=== PATIENT | male | born 1960 | race Caucasian/White ===

== ENCOUNTER 2019-08-30 12:08 | Outpatient (CLI) | payer BC, SELFPAY ==
[2019-08-30 13:04] LABS: Add Urine Microscopic? YES; Appearance Urine Clear (Clear); Basophils Absolute Auto 0.04 K/mm3 (0.00-0.10); Basophils Percent Auto 0.5 % (0.0-1.0); Bilirubin Urine Negative (Negative); Blood Urine Negative (Negative); Color Urine Yellow (Yellow); Eosinophils Absolute Auto 0.07 K/mm3 (0.02-0.50); Eosinophils Percent Auto 0.8 % (1.0-6.0); Glucose Urine UA 1+ (Negative); Hemoglobin 14.9 g/dL (14.0-18.0); Immature Granulocyte Absolute 0.04 K/mm3 (0.00-0.00); Immature Granulocyte Percent A 0.5 % (0.0-0.0); Ketones Urine Negative (Negative); Leukocyte Esterase Ur Negative LEU/UL (Negative); Lymphocytes Absolute Auto 1.46 K/mm3 (1.10-4.50); Lymphocytes Percent Auto 17.1 % (18.0-42.0); Mean Corpuscular HGB Conc 32.4 g/dL (32.0-36.0); Mean Corpuscular Volume 95.6 fL (78.0-102.0); Mean Platelet Volume 9.8 fl (8.7-11.0); Monocytes Absolute Auto 0.84 K/mm3 (0.10-0.90); Monocytes Percent Auto 9.8 % (2.0-11.0); Neutrophils Absolute Auto 6.1 K/mm3 (1.7-7.2); Neutrophils Percent Auto 71.3 % (50.0-70.0); Nitrate Urine Negative (Negative); Platelet Count Result 281 K/mm3 (150-420); Protein Urine Trace (Negative); Red Blood Count 4.81 M/mm3 (4.70-6.10); Red Cell Distribution Width 12.8 % (11.6-14.4); Urobilinogen Urine 0.2 mg/dL (0.2-1.0); White Blood Count 8.6 K/mm3 (4.8-10.8)
[2019-08-30 13:10] LABS: Creatinine Urine 112.98 mg/dL (40-278)
[2019-08-30 13:11] LABS: Hemoglobin A1C 6.4 % (<5.7); MALB Creatinine Ratio 82.4 mg/g (0-30); Microalbumin Urine Random 93.2 mg/L
[2019-08-30 13:15] LABS: RBC Urine 0-2 /hpf (0-2)
[2019-08-30 13:16] LABS: Bacteria Urine None seen /hpf; Mucus Urine Few /lpf; Transitional Epi Cells Urine Few /hpf; WBC Urine 0-3 /hpf (0-3)
[2019-08-30 13:21] LABS: Alanine Aminotransferase 20 U/L (16-63); Albumin Level 3.4 g/dL (3.4-5.0); Alkaline Phosphatase 154 U/L (46-116); Anion Gap 15.3 mmol/L (7-16); Aspartate Amino Transferase 11 U/L (15-37); Bilirubin,Total 0.5 mg/dL (0.00-1.00); Blood Urea Nitrogen 32 mg/dL (7-18); Calcium 8.7 mg/dL (8.5-10.1); Carbon Dioxide 20 mmol/L (21-32); Chloride 108 mmol/L (98-108); Cholesterol 136 mg/dL (0-200); Creatine Kinase 68 U/L (39-308); Estimated Glomerular Filt Rate 28; Glucose 103 mg/dL (70-99); HDL Direct 51 mg/dL (40-60); LDL Cholesterol Calculated 73 mg/dL (<130); Osmolality Calculated 294 mOsm/kg (285-295); Phosphorus 4.1 mg/dL (2.6-4.7); Potassium 4.3 mmol/L (3.5-5.1); Sodium 139 mmol/L (136-145); Total Protein 6.7 g/dL (6.4-8.2); Triglycerides 58 mg/dL (0-150)
[2019-09-01 13:36] LABS: Free T3 1.74 pg/mL (2.18-3.98); Free T4 Free Thyroxine 1.24 ng/dL (0.76-1.46)
[2019-09-02 19:08] LABS: Vitamin D 25 Hydroxy 27 ng/mL (30-100)
[2019-09-03 14:18] LABS: Parathyroid Intact 125 pg/mL (14-64)
== END 2019-08-30 12:09 | disposition home or self-care (01) ==
LOC: CHSLAB 12:12
PROVIDERS: PCP Internal Medicine; Visit Provider Nurse Practitioner
DX: R19.7 Diarrhea, unspecified (principal); I12.9 Hypertensive chronic kidney disease with stage 1 through stage 4 chronic kidney disease, or unspecified chronic kidney disease; N18.3 Chronic kidney disease, stage 3 (moderate); E03.9 Hypothyroidism, unspecified; E78.5 Hyperlipidemia, unspecified; E11.65 Type 2 diabetes mellitus with hyperglycemia
CPT/HCPCS: 36415; 80053; 80061; 81001; 82043; 82306; 82550; 83036; 83970; 84100; 84439; 84443; 84481; 85025; 87045; 87046; 87177; 87209; 87324; 87427

== ENCOUNTER 2019-09-25 09:43 | Outpatient (CLI) | payer BC, SELFPAY ==
[2019-09-25 10:34] LABS: Alanine Aminotransferase 53 U/L (16-63); Albumin Level 3.4 g/dL (3.4-5.0); Alkaline Phosphatase 226 U/L (46-116); Anion Gap 17.1 mmol/L (7-16); Aspartate Amino Transferase 45 U/L (15-37); Bilirubin,Total 0.3 mg/dL (0.00-1.00); Blood Urea Nitrogen 34 mg/dL (7-18); Calcium 8.6 mg/dL (8.5-10.1); Carbon Dioxide 19 mmol/L (21-32); Chloride 108 mmol/L (98-108); Estimated Glomerular Filt Rate 20; Glucose 143 mg/dL (70-99); Osmolality Calculated 297 mOsm/kg (285-295); Potassium 5.1 mmol/L (3.5-5.1); Sodium 139 mmol/L (136-145); Total Protein 6.7 g/dL (6.4-8.2)
[2019-09-30 12:36] LABS: Gliadin AB, IgG 4 Units (<20); Reticulin IgA Negative (Negative); TTG IGA AB 1 U/mL (<4)
[2019-09-30 22:18] LABS: ANCA Screen Negative (Negative); Myeloperoxidase Ab <1.0 AI (<1.0); Proteinase-3 Ab <1.0 AI (<1.0); S cerevisiae Ab (IgG) 18.1 U (<=20.0)
== END 2019-09-25 09:44 | disposition home or self-care (01) ==
LOC: CHSLAB 09:44
PROVIDERS: PCP Internal Medicine; Visit Provider Internal Medicine
DX: R19.7 Diarrhea, unspecified (principal)
CPT/HCPCS: 36415; 80053; 83516; 86021; 86255; 86671

== ENCOUNTER 2019-10-21 11:39 | Outpatient (CLI) | payer BC, SELFPAY ==
[2019-10-21 13:15] LABS: Albumin Level 3.1 g/dL (3.4-5.0); Anion Gap 10.5 mmol/L (7-16); Blood Urea Nitrogen 29 mg/dL (7-18); Calcium 8.1 mg/dL (8.5-10.1); Carbon Dioxide 23 mmol/L (21-32); Chloride 106 mmol/L (98-108); Estimated Glomerular Filt Rate 41; Glucose 232 mg/dL (70-99); Osmolality Calculated 292 mOsm/kg (285-295); Phosphorus 3.6 mg/dL (2.6-4.7); Potassium 4.5 mmol/L (3.5-5.1); Sodium 135 mmol/L (136-145)
== END 2019-10-21 11:40 | disposition home or self-care (01) ==
PROVIDERS: PCP Internal Medicine
DX: I12.9 Hypertensive chronic kidney disease with stage 1 through stage 4 chronic kidney disease, or unspecified chronic kidney disease (principal)
CPT/HCPCS: 36415; 80069

== ENCOUNTER 2019-11-14 12:33 | Outpatient (CLI) | payer BC, SELFPAY ==
[2019-11-14 12:59] LABS: Creatinine Urine 36.54 mg/dL (40-278); Total Protein Urine Random 34.5 mg/dL (0.0-11.9)
[2019-11-14 13:19] LABS: Albumin Level 3.4 g/dL (3.4-5.0); Anion Gap 8 mmol/L (8-16); Blood Urea Nitrogen 41 mg/dL (7-18); Calcium 8.8 mg/dL (8.5-10.1); Carbon Dioxide 27 mmol/L (21-32); Chloride 104 mmol/L (98-108); Estimated Glomerular Filt Rate 42; Glucose 193 mg/dL (70-99); Osmolality Calculated 303 mOsm/kg (285-295); Phosphorus 3.4 mg/dL (2.6-4.7); Potassium 4.6 mmol/L (3.5-5.1); Sodium 139 mmol/L (136-145)
== END 2019-11-14 12:34 | disposition home or self-care (01) ==
LOC: CHSLAB 12:37
PROVIDERS: PCP Internal Medicine
DX: E10.21 Type 1 diabetes mellitus with diabetic nephropathy (principal); I12.9 Hypertensive chronic kidney disease with stage 1 through stage 4 chronic kidney disease, or unspecified chronic kidney disease
CPT/HCPCS: 36415; 80069; 82570; 84156

== ENCOUNTER 2019-12-06 12:44 | Outpatient (CLI) | payer BC, SELFPAY ==
[2019-12-08 11:50] LABS: SARS-CoV-2 RNA PCR Negative
== END 2019-12-06 12:45 | disposition home or self-care (01) ==
LOC: CHSLAB 12:45
PROVIDERS: PCP Internal Medicine; Visit Provider Internal Medicine
DX: Z20.828 Contact with and (suspected) exposure to other viral communicable diseases (principal); Z01.818 Encounter for other preprocedural examination
CPT/HCPCS: 87635; C9803; U0003

== ENCOUNTER 2020-01-06 13:43 | Outpatient (CLI) | payer BC, SELFPAY | END 2020-01-06 13:44 | disposition home or self-care (01) | PROVIDERS: PCP Internal Medicine | DX: H66.90 Otitis media, unspecified, unspecified ear (principal) | CPT/HCPCS: 87040 ==

== ENCOUNTER 2020-02-23 11:37 | Outpatient (CLI) | payer BC, SELFPAY ==
[2020-02-23 12:03] LABS: Basophils Absolute Auto 0.06 K/mm3 (0.00-0.10); Basophils Percent Auto 0.9 % (0.0-1.0); Eosinophils Absolute Auto 0.29 K/mm3 (0.02-0.50); Eosinophils Percent Auto 4.5 % (1.0-6.0); Hematocrit 36.1 % (40.0-54.0); Hemoglobin 11.5 g/dL (14.0-18.0); Immature Granulocyte Absolute 0.03 K/mm3 (0.00-0.00); Immature Granulocyte Percent A 0.5 % (0.0-0.0); Lymphocytes Absolute Auto 2.14 K/mm3 (1.10-4.50); Lymphocytes Percent Auto 33.1 % (18.0-42.0); Mean Corpuscular HGB Conc 31.9 g/dL (32.0-36.0); Mean Corpuscular Hemoglobin 30.6 pg (27.0-31.0); Mean Platelet Volume 9.8 fl (8.7-11.0); Monocytes Absolute Auto 0.84 K/mm3 (0.10-0.90); Neutrophils Absolute Auto 3.1 K/mm3 (1.7-7.2); Platelet Count Result 315 K/mm3 (150-420); Red Blood Count 3.76 M/mm3 (4.70-6.10); Red Cell Distribution Width 13.6 % (11.6-14.4); White Blood Count 6.5 K/mm3 (4.8-10.8)
[2020-02-23 12:35] LABS: MALB Creatinine Ratio 523.1 mg/g (0-30); Microalbumin Urine Random 339.5 mg/L
[2020-02-23 12:59] LABS: Alanine Aminotransferase 40 U/L (16-63); Alkaline Phosphatase 190 U/L (46-116); Anion Gap 9 mmol/L (8-16); Aspartate Amino Transferase 32 U/L (15-37); Bilirubin,Total 0.4 mg/dL (0.00-1.00); Blood Urea Nitrogen 40 mg/dL (7-18); CRP 0.5 mg/dL (0.0-0.9); Calcium 8.8 mg/dL (8.5-10.1); Carbon Dioxide 24 mmol/L (21-32); Chloride 107 mmol/L (98-108); Estimated Glomerular Filt Rate 31; Glucose 191 mg/dL (70-99); Osmolality Calculated 304 mOsm/kg (285-295); Phosphorus 4.6 mg/dL (2.6-4.7); Potassium 5.4 mmol/L (3.5-5.1); Sodium 140 mmol/L (136-145); Total Protein 6.5 g/dL (6.4-8.2)
[2020-02-23 13:54] LABS: Erythrocyte Sedimentation Rate 20 mm/hr (0-20)
[2020-02-26 13:33] LABS: Parathyroid Intact 123 pg/mL (14-64)
[2020-02-27 07:43] LABS: Reference Lab Test Name VORICONAZOLE
== END 2020-02-23 11:38 | disposition home or self-care (01) ==
PROVIDERS: PCP Internal Medicine
DX: N18.4 Chronic kidney disease, stage 4 (severe) (principal); N25.81 Secondary hyperparathyroidism of renal origin; E10.21 Type 1 diabetes mellitus with diabetic nephropathy
CPT/HCPCS: 36415; 80053; 80299; 82043; 83970; 84100; 85025; 85652; 86140

== ENCOUNTER 2020-03-01 11:30 | Outpatient (RCR) | payer BC, SELFPAY ==
[2020-01-19 12:01] LABS: Basophils Absolute Auto 0.04 K/mm3 (0.00-0.10); Basophils Percent Auto 0.6 % (0.0-1.0); Eosinophils Absolute Auto 0.42 K/mm3 (0.02-0.50); Eosinophils Percent Auto 6.7 % (1.0-6.0); Hematocrit 26.6 % (40.0-54.0); Hemoglobin 8.1 g/dL (14.0-18.0); Immature Granulocyte Absolute 0.07 K/mm3 (0.00-0.00); Immature Granulocyte Percent A 1.1 % (0.0-0.0); Lymphocytes Absolute Auto 1.22 K/mm3 (1.10-4.50); Lymphocytes Percent Auto 19.6 % (18.0-42.0); Mean Corpuscular HGB Conc 30.5 g/dL (32.0-36.0); Mean Corpuscular Volume 98.5 fL (78.0-102.0); Mean Platelet Volume 9.4 fl (8.7-11.0); Monocytes Absolute Auto 0.84 K/mm3 (0.10-0.90); Monocytes Percent Auto 13.5 % (2.0-11.0); Neutrophils Absolute Auto 3.6 K/mm3 (1.7-7.2); Neutrophils Percent Auto 58.5 % (50.0-70.0); Platelet Count Result 351 K/mm3 (150-420); Red Cell Distribution Width 13.2 % (11.6-14.4); White Blood Count 6.2 K/mm3 (4.8-10.8)
[2020-01-19 13:21] LABS: Alanine Aminotransferase 37 U/L (16-63); Albumin Level 2.5 g/dL (3.4-5.0); Alkaline Phosphatase 178 U/L (46-116); Anion Gap 12 mmol/L (8-16); Aspartate Amino Transferase 38 U/L (15-37); Bilirubin,Total 0.3 mg/dL (0.00-1.00); Blood Urea Nitrogen 23 mg/dL (7-18); Calcium 7.8 mg/dL (8.5-10.1); Carbon Dioxide 22 mmol/L (21-32); Chloride 112 mmol/L (98-108); Estimated Glomerular Filt Rate 40; Glucose 101 mg/dL (70-99); Osmolality Calculated 305 mOsm/kg (285-295); Potassium 4.1 mmol/L (3.5-5.1); Sodium 146 mmol/L (136-145); Total Protein 5.9 g/dL (6.4-8.2)
[2020-01-19 13:29] LABS: Erythrocyte Sedimentation Rate 35 mm/hr (0-20)
[2020-01-26 11:19] LABS: Basophils Absolute Auto 0.05 K/mm3 (0.00-0.10); Basophils Percent Auto 0.9 % (0.0-1.0); Eosinophils Absolute Auto 0.53 K/mm3 (0.02-0.50); Eosinophils Percent Auto 9.8 % (1.0-6.0); Hemoglobin 8.3 g/dL (14.0-18.0); Immature Granulocyte Absolute 0.04 K/mm3 (0.00-0.00); Immature Granulocyte Percent A 0.7 % (0.0-0.0); Lymphocytes Absolute Auto 1.19 K/mm3 (1.10-4.50); Mean Corpuscular HGB Conc 30.7 g/dL (32.0-36.0); Mean Corpuscular Hemoglobin 30.4 pg (27.0-31.0); Mean Corpuscular Volume 98.9 fL (78.0-102.0); Neutrophils Absolute Auto 2.9 K/mm3 (1.7-7.2); Neutrophils Percent Auto 53.6 % (50.0-70.0); Platelet Count Result 367 K/mm3 (150-420); Red Blood Count 2.73 M/mm3 (4.70-6.10); Red Cell Distribution Width 13.2 % (11.6-14.4); White Blood Count 5.4 K/mm3 (4.8-10.8)
[2020-01-26 11:42] LABS: Alanine Aminotransferase 63 U/L (16-63); Albumin Level 2.5 g/dL (3.4-5.0); Alkaline Phosphatase 189 U/L (46-116); Anion Gap 11 mmol/L (8-16); Aspartate Amino Transferase 47 U/L (15-37); Bilirubin,Total 0.3 mg/dL (0.00-1.00); Blood Urea Nitrogen 20 mg/dL (7-18); Calcium 8.1 mg/dL (8.5-10.1); Carbon Dioxide 25 mmol/L (21-32); Chloride 109 mmol/L (98-108); Estimated Glomerular Filt Rate 39; Glucose 206 mg/dL (70-99); Osmolality Calculated 308 mOsm/kg (285-295); Potassium 4.7 mmol/L (3.5-5.1); Sodium 145 mmol/L (136-145); Total Protein 5.8 g/dL (6.4-8.2)
[2020-01-26 12:22] LABS: Erythrocyte Sedimentation Rate 31 mm/hr (0-20)
[2020-02-02 11:07] LABS: Basophils Absolute Auto 0.07 K/mm3 (0.00-0.10); Basophils Percent Auto 1.2 % (0.0-1.0); Eosinophils Absolute Auto 0.68 K/mm3 (0.02-0.50); Eosinophils Percent Auto 11.5 % (1.0-6.0); Hematocrit 32.9 % (40.0-54.0); Hemoglobin 10.1 g/dL (14.0-18.0); Immature Granulocyte Absolute 0.04 K/mm3 (0.00-0.00); Immature Granulocyte Percent A 0.7 % (0.0-0.0); Lymphocytes Absolute Auto 1.68 K/mm3 (1.10-4.50); Lymphocytes Percent Auto 28.3 % (18.0-42.0); Mean Corpuscular HGB Conc 30.7 g/dL (32.0-36.0); Mean Corpuscular Hemoglobin 30.1 pg (27.0-31.0); Mean Corpuscular Volume 97.9 fL (78.0-102.0); Mean Platelet Volume 9.7 fl (8.7-11.0); Monocytes Absolute Auto 0.86 K/mm3 (0.10-0.90); Monocytes Percent Auto 14.5 % (2.0-11.0); Neutrophils Absolute Auto 2.6 K/mm3 (1.7-7.2); Neutrophils Percent Auto 43.8 % (50.0-70.0); Platelet Count Result 350 K/mm3 (150-420); Red Blood Count 3.36 M/mm3 (4.70-6.10); Red Cell Distribution Width 13.1 % (11.6-14.4); White Blood Count 5.9 K/mm3 (4.8-10.8)
[2020-02-02 12:00] LABS: Alanine Aminotransferase 41 U/L (16-63); Albumin Level 2.8 g/dL (3.4-5.0); Alkaline Phosphatase 204 U/L (46-116); Anion Gap 7 mmol/L (8-16); Aspartate Amino Transferase 40 U/L (15-37); Bilirubin,Total 0.4 mg/dL (0.00-1.00); Blood Urea Nitrogen 32 mg/dL (7-18); CRP 2.2 mg/dL (0.0-0.9); Calcium 8.7 mg/dL (8.5-10.1); Carbon Dioxide 28 mmol/L (21-32); Chloride 107 mmol/L (98-108); Estimated Glomerular Filt Rate 33; Glucose 197 mg/dL (70-99); Osmolality Calculated 305 mOsm/kg (285-295); Potassium 4.9 mmol/L (3.5-5.1); Sodium 142 mmol/L (136-145); Total Protein 6.5 g/dL (6.4-8.2)
[2020-02-02 14:06] LABS: Erythrocyte Sedimentation Rate 36 mm/hr (0-20)
[2020-02-06 07:38] LABS: Reference Lab Test Name VORICONAZOLE
[2020-02-06 10:38] LABS: Anion Gap 10 mmol/L (8-16); Blood Urea Nitrogen 34 mg/dL (7-18); Calcium 8.7 mg/dL (8.5-10.1); Carbon Dioxide 26 mmol/L (21-32); Chloride 105 mmol/L (98-108); Estimated Glomerular Filt Rate 33; Glucose 204 mg/dL (70-99); Osmolality Calculated 305 mOsm/kg (285-295); Potassium 4.8 mmol/L (3.5-5.1); Sodium 141 mmol/L (136-145)
[2020-02-09 11:50] LABS: Basophils Absolute Auto 0.06 K/mm3 (0.00-0.10); Basophils Percent Auto 1.1 % (0.0-1.0); Eosinophils Absolute Auto 0.52 K/mm3 (0.02-0.50); Hematocrit 34.4 % (40.0-54.0); Hemoglobin 10.7 g/dL (14.0-18.0); Immature Granulocyte Absolute 0.05 K/mm3 (0.00-0.00); Lymphocytes Absolute Auto 1.46 K/mm3 (1.10-4.50); Mean Corpuscular HGB Conc 31.1 g/dL (32.0-36.0); Mean Corpuscular Hemoglobin 30.3 pg (27.0-31.0); Mean Corpuscular Volume 97.5 fL (78.0-102.0); Mean Platelet Volume 9.7 fl (8.7-11.0); Monocytes Absolute Auto 0.75 K/mm3 (0.10-0.90); Monocytes Percent Auto 14.4 % (2.0-11.0); Neutrophils Absolute Auto 2.4 K/mm3 (1.7-7.2); Neutrophils Percent Auto 45.5 % (50.0-70.0); Platelet Count Result 335 K/mm3 (150-420); Red Blood Count 3.53 M/mm3 (4.70-6.10); Red Cell Distribution Width 13.1 % (11.6-14.4); White Blood Count 5.2 K/mm3 (4.8-10.8)
[2020-02-09 12:34] LABS: Alanine Aminotransferase 33 U/L (16-63); Albumin Level 2.8 g/dL (3.4-5.0); Alkaline Phosphatase 201 U/L (46-116); Anion Gap 8 mmol/L (8-16); Aspartate Amino Transferase 30 U/L (15-37); Bilirubin,Total 0.4 mg/dL (0.00-1.00); Blood Urea Nitrogen 23 mg/dL (7-18); CRP 2.1 mg/dL (0.0-0.9); Calcium 8.9 mg/dL (8.5-10.1); Carbon Dioxide 27 mmol/L (21-32); Chloride 107 mmol/L (98-108); Estimated Glomerular Filt Rate 37; Glucose 198 mg/dL (70-99); Osmolality Calculated 303 mOsm/kg (285-295); Potassium 5.1 mmol/L (3.5-5.1); Sodium 142 mmol/L (136-145); Total Protein 6.6 g/dL (6.4-8.2)
[2020-02-09 12:49] LABS: Erythrocyte Sedimentation Rate 30 mm/hr (0-20)
[2020-02-14 12:31] LABS: Reference Lab Test Name VORICONAZOLE
[2020-02-20 12:25] LABS: Reference Lab Test Name VORICONAZOLE
[2020-03-01 11:38] LABS: Basophils Absolute Auto 0.06 K/mm3 (0.00-0.10); Basophils Percent Auto 1.1 % (0.0-1.0); Eosinophils Absolute Auto 0.24 K/mm3 (0.02-0.50); Eosinophils Percent Auto 4.3 % (1.0-6.0); Hematocrit 37.4 % (40.0-54.0); Hemoglobin 12.2 g/dL (14.0-18.0); Immature Granulocyte Absolute 0.03 K/mm3 (0.00-0.00); Immature Granulocyte Percent A 0.5 % (0.0-0.0); Lymphocytes Absolute Auto 2.21 K/mm3 (1.10-4.50); Mean Corpuscular HGB Conc 32.6 g/dL (32.0-36.0); Mean Corpuscular Volume 94.9 fL (78.0-102.0); Mean Platelet Volume 9.7 fl (8.7-11.0); Monocytes Absolute Auto 0.75 K/mm3 (0.10-0.90); Monocytes Percent Auto 13.6 % (2.0-11.0); Neutrophils Absolute Auto 2.2 K/mm3 (1.7-7.2); Neutrophils Percent Auto 40.5 % (50.0-70.0); Platelet Count Result 286 K/mm3 (150-420); Red Blood Count 3.94 M/mm3 (4.70-6.10); Red Cell Distribution Width 14.5 % (11.6-14.4); White Blood Count 5.5 K/mm3 (4.8-10.8)
[2020-03-01 12:08] LABS: Alanine Aminotransferase 43 U/L (16-63); Alkaline Phosphatase 261 U/L (46-116); Anion Gap 9 mmol/L (8-16); Aspartate Amino Transferase 43 U/L (15-37); Bilirubin,Total 0.4 mg/dL (0.00-1.00); Blood Urea Nitrogen 41 mg/dL (7-18); CRP 1.4 mg/dL (0.0-0.9); Calcium 8.9 mg/dL (8.5-10.1); Carbon Dioxide 25 mmol/L (21-32); Chloride 109 mmol/L (98-108); Estimated Glomerular Filt Rate 29; Glucose 161 mg/dL (70-99); Osmolality Calculated 309 mOsm/kg (285-295); Potassium 4.6 mmol/L (3.5-5.1); Sodium 143 mmol/L (136-145); Total Protein 6.5 g/dL (6.4-8.2)
[2020-03-01 12:47] LABS: Erythrocyte Sedimentation Rate 14 mm/hr (0-20)
== END 2020-04-18 23:59 | disposition home or self-care (01) ==
LOC: CHSLAB 11:30
PROVIDERS: PCP Internal Medicine
DX: M27.2 Inflammatory conditions of jaws (principal)
CPT/HCPCS: 36415; 80048; 80053; 80299; 85025; 85652; 86140

== ENCOUNTER 2020-03-04 09:45 | Outpatient (CLI) | payer BC, SELFPAY ==
[2020-03-04 11:20] LABS: Anion Gap 7 mmol/L (8-16); Blood Urea Nitrogen 27 mg/dL (7-18); Calcium 8.9 mg/dL (8.5-10.1); Carbon Dioxide 24 mmol/L (21-32); Chloride 109 mmol/L (98-108); Estimated Glomerular Filt Rate 28; Glucose 130 mg/dL (70-99); Osmolality Calculated 297 mOsm/kg (285-295); Potassium 4.4 mmol/L (3.5-5.1); Sodium 140 mmol/L (136-145)
== END 2020-03-04 09:46 | disposition home or self-care (01) ==
LOC: CHSLAB 09:47
PROVIDERS: PCP Internal Medicine; Visit Provider Internal Medicine
DX: I10 Essential (primary) hypertension (principal)
CPT/HCPCS: 36415; 80048

== ENCOUNTER 2020-03-05 11:02 | Outpatient (CLI) | payer BC, SELFPAY ==
--- NOTE | 2020-03-05 12:01 | PC.NURSE ---
1115 #18 power pick to ll ac removed. 41 cm at tip. tip is intact. site looks clean. pressure applied at site. tega derm applied and instructed to leave in place for at least the next hour. s/s to report of post pic line..
== END 2020-03-05 11:03 | disposition home or self-care (01) ==
LOC: CHSTREATRM 11:07
PROVIDERS: PCP Internal Medicine
DX: Z45.2 Encounter for adjustment and management of vascular access device (principal)
CPT/HCPCS: 99211; G0463

== ENCOUNTER 2020-04-19 11:38 | Outpatient (CLI) | payer BC, SELFPAY ==
[2020-04-19 12:12] LABS: Basophils Absolute Auto 0.05 K/mm3 (0.00-0.10); Basophils Percent Auto 0.8 % (0.0-1.0); Eosinophils Absolute Auto 0.14 K/mm3 (0.02-0.50); Eosinophils Percent Auto 2.1 % (1.0-6.0); Hematocrit 38.8 % (40.0-54.0); Hemoglobin 12.4 g/dL (14.0-18.0); Immature Granulocyte Absolute 0.05 K/mm3 (0.00-0.00); Immature Granulocyte Percent A 0.8 % (0.0-0.0); Lymphocytes Absolute Auto 1.71 K/mm3 (1.10-4.50); Lymphocytes Percent Auto 25.7 % (18.0-42.0); Mean Corpuscular Hemoglobin 30.4 pg (27.0-31.0); Mean Corpuscular Volume 95.1 fL (78.0-102.0); Mean Platelet Volume 9.8 fl (8.7-11.0); Monocytes Absolute Auto 0.74 K/mm3 (0.10-0.90); Monocytes Percent Auto 11.1 % (2.0-11.0); Neutrophils Percent Auto 59.5 % (50.0-70.0); Platelet Count Result 280 K/mm3 (150-420); Red Blood Count 4.08 M/mm3 (4.70-6.10); Red Cell Distribution Width 13.4 % (11.6-14.4); White Blood Count 6.7 K/mm3 (4.8-10.8)
[2020-04-19 12:17] LABS: Add Urine Microscopic? YES; Appearance Urine Clear (Clear); Bilirubin Urine Negative (Negative); Blood Urine Negative (Negative); Color Urine Yellow (Yellow); Glucose Urine UA Negative (Negative); Ketones Urine Negative (Negative); Leukocyte Esterase Ur Negative LEU/UL (Negative); Nitrate Urine Negative (Negative); Protein Urine 2+ (Negative); Specific Grav Ur 1.025 (1.010-1.020); Urobilinogen Urine 0.2 mg/dL (0.2-1.0); pH Urine 5.5 (5.0-8.0)
[2020-04-19 12:26] LABS: Bacteria Urine None seen /hpf; RBC Urine None seen /hpf (0-2); Squamous Epithelial Cell Urine Rare /hpf (Few); WBC Urine None seen /hpf (0-3)
[2020-04-19 12:39] LABS: Hemoglobin A1C 6.9 % (<5.7)
[2020-04-19 12:48] LABS: Creatinine Urine 64.14 mg/dL (40-278); MALB Creatinine Ratio 623.6 mg/g (0-30); Microalbumin Urine Random > 400.0 mg/L
[2020-04-19 13:11] LABS: Alanine Aminotransferase 23 U/L (16-63); Albumin Level 3.1 g/dL (3.4-5.0); Alkaline Phosphatase 286 U/L (46-116); Anion Gap 9 mmol/L (8-16); Aspartate Amino Transferase 18 U/L (15-37); Bilirubin,Total 0.3 mg/dL (0.00-1.00); Blood Urea Nitrogen 26 mg/dL (7-18); Calcium 8.4 mg/dL (8.5-10.1); Carbon Dioxide 25 mmol/L (21-32); Chloride 109 mmol/L (98-108); Cholesterol 133 mg/dL (0-200); Creatine Kinase 54 U/L (39-308); Estimated Glomerular Filt Rate 37; Ferritin 202 ng/mL (26-388); Free T3 1.62 pg/mL (2.18-3.98); Free T4 Free Thyroxine 0.92 ng/dL (0.76-1.46); Glucose 126 mg/dL (70-99); HDL Direct 53 mg/dL (40-60); Iron 83 ug/dL (65-175); LDL Cholesterol Calculated 68 mg/dL (<130); Osmolality Calculated 302 mOsm/kg (285-295); Percent Iron Saturation 42 % (12-57); Phosphorus 3.5 mg/dL (2.6-4.7); Potassium 4.2 mmol/L (3.5-5.1); Prostate Specific Antigen 0.4 ng/mL (< OR = 4.0); Sodium 143 mmol/L (136-145); Thyroid Stimulating Hormone 13.85 uIU/mL (0.36-3.74); Triglycerides 59 mg/dL (0-150); Vitamin B12 402 pg/mL (193-986)
[2020-04-21 10:27] LABS: Parathyroid Intact 204 pg/mL (14-64)
== END 2020-04-19 11:39 | disposition home or self-care (01) ==
PROVIDERS: PCP Internal Medicine
DX: D64.9 Anemia, unspecified (principal); I12.9 Hypertensive chronic kidney disease with stage 1 through stage 4 chronic kidney disease, or unspecified chronic kidney disease; N18.4 Chronic kidney disease, stage 4 (severe); N25.81 Secondary hyperparathyroidism of renal origin; E10.21 Type 1 diabetes mellitus with diabetic nephropathy; E03.9 Hypothyroidism, unspecified; Z12.5 Encounter for screening for malignant neoplasm of prostate; E78.5 Hyperlipidemia, unspecified
CPT/HCPCS: 36415; 80053; 80061; 81001; 82043; 82550; 82607; 82728; 83036; 83540; 83550; 83970; 84100; 84153; 84439; 84443; 84481; 85025; G0103

== ENCOUNTER 2020-07-23 10:39 | Outpatient (CLI) | payer BC, SELFPAY ==
[2020-07-23 10:58] LABS: Add Urine Microscopic? YES; Appearance Urine Clear (Clear); Basophils Absolute Auto 0.06 K/mm3 (0.00-0.10); Bilirubin Urine Negative (Negative); Blood Urine Negative (Negative); Color Urine Yellow (Yellow); Eosinophils Absolute Auto 0.14 K/mm3 (0.02-0.50); Eosinophils Percent Auto 2.4 % (1.0-6.0); Glucose Urine UA Negative (Negative); Hematocrit 39.8 % (40.0-54.0); Hemoglobin 12.9 g/dL (14.0-18.0); Immature Granulocyte Absolute 0.05 K/mm3 (0.00-0.00); Immature Granulocyte Percent A 0.8 % (0.0-0.0); Ketones Urine Negative (Negative); Leukocyte Esterase Ur Negative (Negative); Lymphocytes Absolute Auto 1.96 K/mm3 (1.10-4.50); Lymphocytes Percent Auto 33.2 % (18.0-42.0); Mean Corpuscular HGB Conc 32.4 g/dL (32.0-36.0); Mean Corpuscular Hemoglobin 30.5 pg (27.0-31.0); Mean Corpuscular Volume 94.1 fL (78.0-102.0); Mean Platelet Volume 9.4 fl (8.7-11.0); Monocytes Absolute Auto 0.54 K/mm3 (0.10-0.90); Monocytes Percent Auto 9.2 % (2.0-11.0); Neutrophils Absolute Auto 3.2 K/mm3 (1.7-7.2); Neutrophils Percent Auto 53.4 % (50.0-70.0); Nitrate Urine Negative (Negative); Platelet Count Result 335 K/mm3 (150-420); Protein Urine 2+ (Negative); Red Blood Count 4.23 M/mm3 (4.70-6.10); Red Cell Distribution Width 13.1 % (11.6-14.4); Specific Grav Ur 1.025 (1.010-1.020); Urobilinogen Urine 0.2 mg/dL (0.2-1.0); White Blood Count 5.9 K/mm3 (4.8-10.8); pH Urine 5.5 (5.0-8.0)
[2020-07-23 11:07] LABS: Bacteria Urine Trace /hpf; Hemoglobin A1C 6.5 % (<5.7); RBC Urine None seen /hpf (0-2); Squamous Epithelial Cell Urine Rare /hpf (Few); WBC Urine None seen /hpf (0-3)
[2020-07-23 11:13] LABS: Creatinine Urine 43.04 mg/dL (40-278)
[2020-07-23 11:21] LABS: MALB Creatinine Ratio 929.3 mg/g (0-30); Microalbumin Urine Random > 400.0 mg/L
[2020-07-23 11:53] LABS: Alanine Aminotransferase 56 U/L (16-63); Albumin Level 3.2 g/dL (3.4-5.0); Alkaline Phosphatase 188 U/L (46-116); Anion Gap 10 mmol/L (8-16); Aspartate Amino Transferase 28 U/L (15-37); Bilirubin,Total 0.4 mg/dL (0.00-1.00); Blood Urea Nitrogen 38 mg/dL (7-18); Calcium 8.9 mg/dL (8.5-10.1); Carbon Dioxide 23 mmol/L (21-32); Chloride 109 mmol/L (98-108); Estimated Glomerular Filt Rate 36; Free T3 1.81 pg/mL (2.18-3.98); Free T4 Free Thyroxine 0.79 ng/dL (0.76-1.46); Glucose 118 mg/dL (70-99); Osmolality Calculated 304 mOsm/kg (285-295); Potassium 5.3 mmol/L (3.5-5.1); Sodium 142 mmol/L (136-145); Thyroid Stimulating Hormone 30.06 uIU/mL (0.36-3.74); Total Protein 6.3 g/dL (6.4-8.2)
[2020-07-26 11:01] LABS: Parathyroid Intact 312 pg/mL (14-64)
== END 2020-07-23 10:40 | disposition home or self-care (01) ==
PROVIDERS: PCP Internal Medicine
DX: N18.4 Chronic kidney disease, stage 4 (severe) (principal); N25.81 Secondary hyperparathyroidism of renal origin; D64.9 Anemia, unspecified; E10.21 Type 1 diabetes mellitus with diabetic nephropathy; E03.4 Atrophy of thyroid (acquired)
CPT/HCPCS: 36415; 80053; 81001; 82043; 83036; 83970; 84100; 84439; 84443; 84481; 85025

== ENCOUNTER 2020-10-05 12:12 | Outpatient (CLI) | payer BC, SELFPAY ==
[2020-10-05 13:20] LABS: Free T3 1.44 pg/mL (2.18-3.98); Free T4 Free Thyroxine 0.79 ng/dL (0.76-1.46); Thyroid Stimulating Hormone 36.29 uIU/mL (0.36-3.74)
== END 2020-10-05 12:13 | disposition home or self-care (01) ==
LOC: CHSLAB 12:14
PROVIDERS: PCP Internal Medicine; Visit Provider Internal Medicine
DX: E03.4 Atrophy of thyroid (acquired) (principal)
CPT/HCPCS: 36415; 84439; 84443; 84481

== ENCOUNTER 2020-11-27 09:34 | Outpatient (CLI) | payer BC, SELFPAY ==
[2020-11-27 10:00] LABS: Basophils Absolute Auto 0.07 K/mm3 (0.00-0.10); Basophils Percent Auto 1.2 % (0.0-1.0); Eosinophils Percent Auto 3.5 % (1.0-6.0); Hematocrit 41.7 % (40.0-54.0); Hemoglobin 13.5 g/dL (14.0-18.0); Immature Granulocyte Absolute 0.05 K/mm3 (0.00-0.00); Immature Granulocyte Percent A 0.9 % (0.0-0.0); Lymphocytes Percent Auto 36.7 % (18.0-42.0); Mean Corpuscular HGB Conc 32.4 g/dL (32.0-36.0); Mean Corpuscular Volume 95.9 fL (78.0-102.0); Monocytes Absolute Auto 0.63 K/mm3 (0.10-0.90); Neutrophils Absolute Auto 2.7 K/mm3 (1.7-7.2); Neutrophils Percent Auto 46.7 % (50.0-70.0); Platelet Count Result 291 K/mm3 (150-420); Red Blood Count 4.35 M/mm3 (4.70-6.10); White Blood Count 5.7 K/mm3 (4.8-10.8)
[2020-11-27 10:09] LABS: Hemoglobin A1C 6.9 % (<5.7)
[2020-11-27 10:12] LABS: Creatinine Urine 39.83 mg/dL (40-278)
[2020-11-27 10:53] LABS: MALB Creatinine Ratio 440.3 mg/g (0-30); Microalbumin Urine Random 175.4 mg/L
[2020-11-27 11:37] LABS: Alanine Aminotransferase 89 U/L (16-63); Albumin Level 3.5 g/dL (3.4-5.0); Alkaline Phosphatase 208 U/L (46-116); Anion Gap 7 mmol/L (8-16); Aspartate Amino Transferase 53 U/L (15-37); Bilirubin,Total 0.5 mg/dL (0.00-1.00); Blood Urea Nitrogen 42 mg/dL (7-18); Carbon Dioxide 25 mmol/L (21-32); Chloride 107 mmol/L (98-108); Cholesterol 177 mg/dL (0-200); Estimated Glomerular Filt Rate 34; Ferritin 119 ng/mL (26-388); Glucose 154 mg/dL (70-99); HDL Direct 66 mg/dL (40-60); Iron 125 ug/dL (65-175); LDL Cholesterol Calculated 99 mg/dL (<130); Magnesium 1.7 mg/dL (1.8-2.4); Osmolality Calculated 301 mOsm/kg (285-295); Percent Iron Saturation 51 % (12-57); Phosphorus 4.4 mg/dL (2.6-4.7); Potassium 5.8 mmol/L (3.5-5.1); Sodium 139 mmol/L (136-145); Total Protein 6.5 g/dL (6.4-8.2); Triglycerides 61 mg/dL (0-150); Vitamin B12 574 pg/mL (193-986)
[2020-12-01 13:28] LABS: Parathyroid Intact 167 pg/mL (14-64)
== END 2020-11-27 09:35 | disposition home or self-care (01) ==
LOC: CHSLAB 09:40
PROVIDERS: PCP Internal Medicine
DX: E10.65 Type 1 diabetes mellitus with hyperglycemia (principal)
CPT/HCPCS: 36415; 80053; 80061; 80069; 82043; 82607; 82728; 83036; 83540; 83550; 83735; 83970; 84100; 85025

== ENCOUNTER 2020-12-29 08:17 | Outpatient (CLI) | payer BC, SELFPAY ==
--- NOTE | ~2020-12-29 | US_ITS ---
EXAMINATION: US right upper quadrant EXAM DATE: 12/29/2020 08:53 INDICATION: Elevated liver enzymes . Cholecystectomy, partial pancreatectomy TECHNIQUE: Multiple grayscale and Doppler images of the abdomen right upper quadrant were obtained (roxann y a technologist who performed the scan) and subsequently reviewed. There is no prior study for reji damon. FINDINGS: Pancreatic head poorly visualized, notation was made that there is partial pancreatic resection. Body and tail are obscured by bowel gas. The liver has normal echogenicity and contour. There are no fo elisa liver lesions identified. There is no evidence of intrahepatic biliary duct dilation. Portal v enous flow was seen in the hepatopedal, normal direction and has normal Doppler waveform. No right-s ided hydronephrosis. Common bile duct measures 5 mm, which is normal. Structures probably the duodenal bulb in subhepatic location. IMPRESSION: Unremarkable abdominal ultrasound exam. Reviewed, dictated and finalized at location A.
[2020-12-29 08:42] LABS: Add Urine Microscopic? YES; Appearance Urine Clear (Clear); Basophils Absolute Auto 0.05 K/mm3 (0.00-0.10); Basophils Percent Auto 0.9 % (0.0-1.0); Bilirubin Urine Negative (Negative); Blood Urine Negative (Negative); Color Urine Light Yellow (Yellow); Eosinophils Absolute Auto 0.17 K/mm3 (0.02-0.50); Eosinophils Percent Auto 2.9 % (1.0-6.0); Glucose Urine UA Trace (Negative); Hemoglobin 12.8 g/dL (14.0-18.0); Immature Granulocyte Absolute 0.05 K/mm3 (0.00-0.00); Immature Granulocyte Percent A 0.9 % (0.0-0.0); Ketones Urine Negative (Negative); Leukocyte Esterase Ur Negative (Negative); Lymphocytes Absolute Auto 2.17 K/mm3 (1.10-4.50); Lymphocytes Percent Auto 37.3 % (18.0-42.0); Mean Corpuscular Hemoglobin 30.7 pg (27.0-31.0); Mean Corpuscular Volume 95.9 fL (78.0-102.0); Mean Platelet Volume 9.9 fl (8.7-11.0); Monocytes Absolute Auto 0.74 K/mm3 (0.10-0.90); Monocytes Percent Auto 12.7 % (2.0-11.0); Neutrophils Absolute Auto 2.6 K/mm3 (1.7-7.2); Neutrophils Percent Auto 45.3 % (50.0-70.0); Nitrate Urine Negative (Negative); Platelet Count Result 290 K/mm3 (150-420); Protein Urine Trace (Negative); Red Blood Count 4.17 M/mm3 (4.70-6.10); Red Cell Distribution Width 12.7 % (11.6-14.4); Specific Grav Ur 1.015 (1.010-1.020); Urobilinogen Urine 0.2 mg/dL (0.2-1.0); White Blood Count 5.8 K/mm3 (4.8-10.8); pH Urine 5.5 (5.0-8.0)
[2020-12-29 08:58] LABS: RBC Urine 0-2 /hpf (0-2); Squamous Epithelial Cell Urine Few /hpf (Few); WBC Urine 0-3 /hpf (0-3)
[2020-12-29 08:59] LABS: Bacteria Urine Trace /hpf
[2020-12-29 09:14] LABS: Hemoglobin A1C 7.2 % (<5.7)
[2020-12-29 09:21] LABS: Creatinine Urine 46.44 mg/dL (40-278)
[2020-12-29 09:24] LABS: Microalbumin Urine Random 171.4 mg/L
[2020-12-29 09:45] LABS: Alanine Aminotransferase 44 U/L (16-63); Albumin Level 3.5 g/dL (3.4-5.0); Alkaline Phosphatase 145 U/L (46-116); Anion Gap 10 mmol/L (8-16); Aspartate Amino Transferase 22 U/L (15-37); Bilirubin,Total 0.5 mg/dL (0.00-1.00); Blood Urea Nitrogen 47 mg/dL (7-18); Calcium 8.7 mg/dL (8.5-10.1); Carbon Dioxide 23 mmol/L (21-32); Chloride 108 mmol/L (98-108); Cholesterol 152 mg/dL (0-200); Creatine Kinase 113 U/L (39-308); Estimated Glomerular Filt Rate 33; Free T3 1.77 pg/mL (2.18-3.98); Free T4 Free Thyroxine 1.08 ng/dL (0.76-1.46); Glucose 222 mg/dL (70-99); HDL Direct 63 mg/dL (40-60); LDL Cholesterol Calculated 78 mg/dL (<130); Osmolality Calculated 311 mOsm/kg (285-295); Phosphorus 5.2 mg/dL (2.6-4.7); Potassium 5.6 mmol/L (3.5-5.1); Sodium 141 mmol/L (136-145); Thyroid Stimulating Hormone 8.59 uIU/mL (0.36-3.74); Total Protein 6.4 g/dL (6.4-8.2); Triglycerides 56 mg/dL (0-150)
[2021-01-01 12:16] LABS: Parathyroid Intact 185 pg/mL (14-64)
== END 2020-12-29 08:18 | disposition home or self-care (01) ==
LOC: CHSIMG 08:20
PROVIDERS: PCP Internal Medicine
DX: R94.5 Abnormal results of liver function studies (principal); N18.32 Chronic kidney disease, stage 3b; E87.5 Hyperkalemia; E10.21 Type 1 diabetes mellitus with diabetic nephropathy; E03.9 Hypothyroidism, unspecified
CPT/HCPCS: 36415; 76705; 80053; 80061; 81001; 82043; 82550; 83036; 83970; 84100; 84439; 84443; 84481; 85025

== ENCOUNTER 2021-01-17 11:51 | Outpatient (CLI) | payer BC, SELFPAY ==
[2021-01-17 12:37] LABS: Albumin Level 3.3 g/dL (3.4-5.0); Anion Gap 9 mmol/L (8-16); Blood Urea Nitrogen 38 mg/dL (7-18); Calcium 8.4 mg/dL (8.5-10.1); Carbon Dioxide 23 mmol/L (21-32); Chloride 105 mmol/L (98-108); Estimated Glomerular Filt Rate 37; Glucose 231 mg/dL (70-99); Osmolality Calculated 300 mOsm/kg (285-295); Phosphorus 3.7 mg/dL (2.6-4.7); Potassium 5.5 mmol/L (3.5-5.1); Sodium 137 mmol/L (136-145)
== END 2021-01-17 11:52 | disposition home or self-care (01) ==
LOC: CHSLAB 12:00
PROVIDERS: PCP Internal Medicine
DX: N18.32 Chronic kidney disease, stage 3b (principal)
CPT/HCPCS: 36415; 80069

== ENCOUNTER 2021-03-11 09:43 | Outpatient (CLI) | payer BC, SELFPAY ==
[2021-03-11 10:27] LABS: Hemoglobin A1C 7.1 % (<5.7)
[2021-03-11 11:00] LABS: Albumin Level 3.4 g/dL (3.4-5.0); Anion Gap 10 mmol/L (8-16); Blood Urea Nitrogen 49 mg/dL (7-18); Calcium 8.8 mg/dL (8.5-10.1); Carbon Dioxide 23 mmol/L (21-32); Chloride 107 mmol/L (98-108); Estimated Glomerular Filt Rate 32; Free T4 Free Thyroxine 1.05 ng/dL (0.76-1.46); Glucose 187 mg/dL (70-99); Osmolality Calculated 308 mOsm/kg (285-295); Phosphorus 4.5 mg/dL (2.6-4.7); Potassium 5.6 mmol/L (3.5-5.1); Sodium 140 mmol/L (136-145); Thyroid Stimulating Hormone 5.72 uIU/mL (0.36-3.74)
[2021-03-15 21:34] LABS: Thyroxin Binding Globulin 23.6 mcg/mL (12.7-25.1)
[2021-03-16 02:46] LABS: Thyroid Peroxidase Antibodies 512 IU/mL (<9)
== END 2021-03-11 09:44 | disposition home or self-care (01) ==
LOC: CHSLAB 09:49
PROVIDERS: PCP Internal Medicine
DX: I12.9 Hypertensive chronic kidney disease with stage 1 through stage 4 chronic kidney disease, or unspecified chronic kidney disease (principal); N18.32 Chronic kidney disease, stage 3b; E10.65 Type 1 diabetes mellitus with hyperglycemia; E03.4 Atrophy of thyroid (acquired)
CPT/HCPCS: 36415; 80069; 83036; 84439; 84442; 84443; 86376

== ENCOUNTER 2021-04-30 10:03 | Outpatient (CLI) | payer BC, SELFPAY ==
[2021-04-30 10:22] LABS: Add Urine Microscopic? YES; Appearance Urine Clear (Clear); Bilirubin Urine Negative (Negative); Blood Urine Negative (Negative); Color Urine Light Yellow (Yellow); Glucose Urine UA Negative (Negative); Ketones Urine Negative (Negative); Leukocyte Esterase Ur Negative LEU/UL (Negative); Nitrate Urine Negative (Negative); Protein Urine Trace (Negative); Specific Grav Ur 1.015 (1.010-1.020); Urobilinogen Urine 0.2 mg/dL (0.2-1.0); pH Urine 5.5 (5.0-8.0)
[2021-04-30 10:25] LABS: Bacteria Urine None seen /hpf; RBC Urine None seen /hpf (0-2); Squamous Epithelial Cell Urine Rare /hpf (Few); WBC Urine None seen /hpf (0-3)
[2021-04-30 10:34] LABS: Creatinine Urine 39.46 mg/dL (40-278)
[2021-04-30 10:42] LABS: Albumin Level 3.4 g/dL (3.4-5.0); Anion Gap 12 mmol/L (8-16); Blood Urea Nitrogen 51 mg/dL (7-18); Calcium 8.8 mg/dL (8.5-10.1); Carbon Dioxide 21 mmol/L (21-32); Chloride 109 mmol/L (98-108); Estimated Glomerular Filt Rate 33; Glucose 159 mg/dL (70-99); Osmolality Calculated 310 mOsm/kg (285-295); Phosphorus 4.5 mg/dL (2.6-4.7); Potassium 5.5 mmol/L (3.5-5.1); Sodium 142 mmol/L (136-145)
[2021-04-30 10:50] LABS: Microalbumin Urine Random 175.6 mg/L
== END 2021-04-30 10:04 | disposition home or self-care (01) ==
LOC: CHSLAB 10:07
PROVIDERS: PCP Internal Medicine
DX: E10.65 Type 1 diabetes mellitus with hyperglycemia (principal); N18.32 Chronic kidney disease, stage 3b
CPT/HCPCS: 36415; 80069; 81001; 82043

== ENCOUNTER 2021-08-31 12:02 | Outpatient (CLI) | payer BC, SELFPAY ==
[2021-08-31 12:37] LABS: Add Urine Microscopic? NO; Appearance Urine Clear (Clear); Basophils Absolute Auto 0.06 K/mm3 (0.00-0.10); Basophils Percent Auto 0.7 % (0.0-1.0); Bilirubin Urine Negative (Negative); Blood Urine Negative (Negative); Color Urine Light Yellow (Yellow); Eosinophils Absolute Auto 0.21 K/mm3 (0.02-0.50); Eosinophils Percent Auto 2.5 % (1.0-6.0); Glucose Urine UA Negative (Negative); Hemoglobin 12.7 g/dL (14.0-18.0); Immature Granulocyte Absolute 0.11 K/mm3 (0.00-0.00); Immature Granulocyte Percent A 1.3 % (0.0-0.0); Ketones Urine Negative (Negative); Leukocyte Esterase Ur Negative LEU/UL (Negative); Lymphocytes Absolute Auto 2.42 K/mm3 (1.10-4.50); Lymphocytes Percent Auto 29.3 % (18.0-42.0); Mean Corpuscular HGB Conc 31.8 g/dL (32.0-36.0); Mean Corpuscular Hemoglobin 30.3 pg (27.0-31.0); Mean Corpuscular Volume 95.5 fL (78.0-102.0); Mean Platelet Volume 10.1 fl (8.7-11.0); Monocytes Absolute Auto 0.94 K/mm3 (0.10-0.90); Monocytes Percent Auto 11.4 % (2.0-11.0); Neutrophils Absolute Auto 4.5 K/mm3 (1.7-7.2); Neutrophils Percent Auto 54.8 % (50.0-70.0); Nitrate Urine Negative (Negative); Platelet Count Result 330 K/mm3 (150-420); Protein Urine Negative (Negative); Red Blood Count 4.19 M/mm3 (4.70-6.10); Red Cell Distribution Width 13.4 % (11.6-14.4); Specific Grav Ur <= 1.005 (1.010-1.020); Urobilinogen Urine 0.2 mg/dL (0.2-1.0); White Blood Count 8.3 K/mm3 (4.8-10.8); pH Urine 5.5 (5.0-8.0)
[2021-08-31 12:47] LABS: Creatinine Urine 25.94 mg/dL (40-278); MALB Creatinine Ratio 324.2 mg/g (0-30); Microalbumin Urine Random 84.1 mg/L
[2021-08-31 12:50] LABS: Hemoglobin A1C 6.5 % (<5.7)
[2021-08-31 13:05] LABS: Alanine Aminotransferase 40 U/L (16-63); Albumin Level 3.2 g/dL (3.4-5.0); Alkaline Phosphatase 192 U/L (46-116); Anion Gap 6 mmol/L (8-16); Aspartate Amino Transferase 29 U/L (15-37); Bilirubin,Total 0.4 mg/dL (0.00-1.00); Blood Urea Nitrogen 43 mg/dL (7-18); Calcium 8.4 mg/dL (8.5-10.1); Carbon Dioxide 18 mmol/L (21-32); Chloride 109 mmol/L (98-108); Cholesterol 138 mg/dL (0-200); Estimated Glomerular Filt Rate 30; Free T3 1.97 pg/mL (2.18-3.98); Free T4 Free Thyroxine 1.37 ng/dL (0.76-1.46); Glucose 118 mg/dL (70-99); HDL Direct 68 mg/dL (40-60); LDL Cholesterol Calculated 65 mg/dL (<130); Osmolality Calculated 287 mOsm/kg (285-295); Phosphorus 3.8 mg/dL (2.6-4.7); Potassium 5.5 mmol/L (3.5-5.1); Sodium 133 mmol/L (136-145); Thyroid Stimulating Hormone 0.08 uIU/mL (0.36-3.74); Total Protein 6.9 g/dL (6.4-8.2); Triglycerides 26 mg/dL (0-150)
[2021-09-03 19:40] LABS: Parathyroid Intact 180 pg/mL (14-64)
== END 2021-08-31 12:03 | disposition home or self-care (01) ==
LOC: CHSLAB 12:11
PROVIDERS: PCP Internal Medicine
DX: Z00.00 Encounter for general adult medical examination without abnormal findings (principal); E03.4 Atrophy of thyroid (acquired); E10.610 Type 1 diabetes mellitus with diabetic neuropathic arthropathy; I12.9 Hypertensive chronic kidney disease with stage 1 through stage 4 chronic kidney disease, or unspecified chronic kidney disease; E78.2 Mixed hyperlipidemia; Z12.5 Encounter for screening for malignant neoplasm of prostate; N18.32 Chronic kidney disease, stage 3b
CPT/HCPCS: 36415; 80053; 80061; 81003; 82043; 82610; 83036; 83970; 84100; 84439; 84443; 84481; 85025

== ENCOUNTER 2021-11-18 10:59 | Outpatient (CLI) | payer BC, SELFPAY ==
[2021-11-18 11:30] LABS: Albumin Level 3.2 g/dL (3.4-5.0); Anion Gap 12 mmol/L (8-16); Blood Urea Nitrogen 40 mg/dL (7-18); Calcium 8.8 mg/dL (8.5-10.1); Carbon Dioxide 18 mmol/L (21-32); Chloride 105 mmol/L (98-108); Estimated Glomerular Filt Rate 33; Glucose 130 mg/dL (70-99); Osmolality Calculated 291 mOsm/kg (285-295); Phosphorus 3.8 mg/dL (2.6-4.7); Potassium 4.8 mmol/L (3.5-5.1); Sodium 135 mmol/L (136-145)
== END 2021-11-18 11:00 | disposition home or self-care (01) ==
LOC: CHSLAB 11:02
PROVIDERS: PCP Internal Medicine
DX: N18.32 Chronic kidney disease, stage 3b (principal); E87.5 Hyperkalemia
CPT/HCPCS: 36415; 80069

== ENCOUNTER 2022-01-21 12:07 | Outpatient (CLI) | payer BC, SELFPAY ==
[2022-01-21 12:30] LABS: Basophils Absolute Auto 0.05 K/mm3 (0.00-0.10); Basophils Percent Auto 0.9 % (0.0-1.0); Eosinophils Absolute Auto 0.15 K/mm3 (0.02-0.50); Eosinophils Percent Auto 2.6 % (1.0-6.0); Hemoglobin 11.8 g/dL (14.0-18.0); Immature Granulocyte Absolute 0.03 K/mm3 (0.00-0.00); Immature Granulocyte Percent A 0.5 % (0.0-0.0); Lymphocytes Absolute Auto 1.85 K/mm3 (1.10-4.50); Lymphocytes Percent Auto 32.1 % (18.0-42.0); Mean Corpuscular HGB Conc 32.8 g/dL (32.0-36.0); Mean Corpuscular Hemoglobin 31.1 pg (27.0-31.0); Mean Corpuscular Volume 94.7 fL (78.0-102.0); Mean Platelet Volume 10.1 fl (8.7-11.0); Monocytes Absolute Auto 0.81 K/mm3 (0.10-0.90); Neutrophils Absolute Auto 2.9 K/mm3 (1.7-7.2); Neutrophils Percent Auto 49.9 % (50.0-70.0); Platelet Count Result 268 K/mm3 (150-420); Red Cell Distribution Width 13.3 % (11.6-14.4); White Blood Count 5.8 K/mm3 (4.8-10.8)
[2022-01-21 12:39] LABS: Creatinine Urine 24.13 mg/dL (40-278); Total Protein Urine Random 21.2 mg/dL (0.0-11.9); Ur Ttl Prot Creatinine Ratio 0.88 mg/mg (0-0.20)
[2022-01-21 12:43] LABS: Albumin Level 3.4 g/dL (3.4-5.0); Anion Gap 8 mmol/L (8-16); Blood Urea Nitrogen 41 mg/dL (7-18); Calcium 8.4 mg/dL (8.5-10.1); Carbon Dioxide 22 mmol/L (21-32); Chloride 110 mmol/L (98-108); Estimated Glomerular Filt Rate 35; Glucose 111 mg/dL (70-99); Magnesium 1.4 mg/dL (1.8-2.4); Osmolality Calculated 301 mOsm/kg (285-295); Phosphorus 3.3 mg/dL (2.6-4.7); Potassium 4.5 mmol/L (3.5-5.1); Sodium 140 mmol/L (136-145)
[2022-01-25 20:25] LABS: Parathyroid Intact 226 pg/mL (14-64)
[2022-01-26 17:16] LABS: Vitamin D 25 Hydroxy 38 ng/mL (30-100)
== END 2022-01-21 12:08 | disposition home or self-care (01) ==
LOC: CHSLAB 12:11
PROVIDERS: PCP Internal Medicine
DX: N18.32 Chronic kidney disease, stage 3b (principal); E10.22 Type 1 diabetes mellitus with diabetic chronic kidney disease; N25.81 Secondary hyperparathyroidism of renal origin; E55.9 Vitamin D deficiency, unspecified
CPT/HCPCS: 36415; 80069; 82306; 82570; 83735; 83970; 84156; 85025

== ENCOUNTER 2022-04-01 10:05 | Outpatient (CLI) | payer BC, SELFPAY ==
[2022-04-01 10:34] LABS: Add Urine Microscopic? YES; Appearance Urine Clear (Clear); Basophils Absolute Auto 0.05 K/mm3 (0.00-0.10); Basophils Percent Auto 0.9 % (0.0-1.0); Bilirubin Urine Negative (Negative); Blood Urine Negative (Negative); Color Urine Light Yellow (Yellow); Eosinophils Absolute Auto 0.12 K/mm3 (0.02-0.50); Eosinophils Percent Auto 2.1 % (1.0-6.0); Glucose Urine UA Negative (Negative); Hematocrit 38.7 % (40.0-54.0); Hemoglobin 12.3 g/dL (14.0-18.0); Immature Granulocyte Absolute 0.05 K/mm3 (0.00-0.00); Immature Granulocyte Percent A 0.9 % (0.0-0.0); Ketones Urine Negative (Negative); Leukocyte Esterase Ur Negative LEU/UL (Negative); Lymphocytes Absolute Auto 1.68 K/mm3 (1.10-4.50); Lymphocytes Percent Auto 29.6 % (18.0-42.0); Mean Corpuscular HGB Conc 31.8 g/dL (32.0-36.0); Mean Corpuscular Hemoglobin 30.9 pg (27.0-31.0); Mean Corpuscular Volume 97.2 fL (78.0-102.0); Mean Platelet Volume 10.1 fl (8.7-11.0); Monocytes Absolute Auto 0.82 K/mm3 (0.10-0.90); Monocytes Percent Auto 14.4 % (2.0-11.0); Neutrophils Percent Auto 52.1 % (50.0-70.0); Nitrate Urine Negative (Negative); Platelet Count Result 284 K/mm3 (150-420); Protein Urine Trace (Negative); Red Blood Count 3.98 M/mm3 (4.70-6.10); Red Cell Distribution Width 12.6 % (11.6-14.4); Urobilinogen Urine 0.2 mg/dL (0.2-1.0); White Blood Count 5.7 K/mm3 (4.8-10.8)
[2022-04-01 10:38] LABS: Bacteria Urine None seen /hpf; RBC Urine None seen /hpf (0-2); Squamous Epithelial Cell Urine Rare /hpf (Few); WBC Urine None seen /hpf (0-3)
[2022-04-01 10:48] LABS: Creatinine Urine 37.71 mg/dL (40-278)
[2022-04-01 10:54] LABS: Microalbumin Urine Random 143.7 mg/L
[2022-04-01 11:05] LABS: Alanine Aminotransferase 39 U/L (16-63); Albumin Level 3.4 g/dL (3.4-5.0); Alkaline Phosphatase 207 U/L (46-116); Anion Gap 5 mmol/L (8-16); Aspartate Amino Transferase 33 U/L (15-37); Bilirubin,Total 0.7 mg/dL (0.00-1.00); Blood Urea Nitrogen 41 mg/dL (7-18); Calcium 8.3 mg/dL (8.5-10.1); Carbon Dioxide 25 mmol/L (21-32); Chloride 104 mmol/L (98-108); Cholesterol 165 mg/dL (0-200); Estimated Glomerular Filt Rate 34; Glucose 170 mg/dL (70-99); HDL Direct 80 mg/dL (40-60); LDL Cholesterol Calculated 77 mg/dL (<130); Osmolality Calculated 292 mOsm/kg (285-295); Prostate Specific Antigen 0.4 ng/mL (< OR = 4.0); Sodium 134 mmol/L (136-145); Total Protein 6.6 g/dL (6.4-8.2); Triglycerides 41 mg/dL (0-150)
[2022-04-01 11:08] LABS: Hemoglobin A1C 6.5 % (<5.7)
[2022-04-01 11:25] LABS: Thyroid Stimulating Hormone 0.19 uIU/mL (0.36-3.74)
[2022-04-03 16:37] LABS: Creatine Kinase 63 U/L (39-308); Free T3 2.42 pg/mL (2.18-3.98)
[2022-04-06 20:57] LABS: Parathyroid Intact 229 pg/mL (14-64)
== END 2022-04-01 10:06 | disposition home or self-care (01) ==
PROVIDERS: PCP Internal Medicine
DX: E10.610 Type 1 diabetes mellitus with diabetic neuropathic arthropathy (principal); I10 Essential (primary) hypertension; E03.4 Atrophy of thyroid (acquired); J44.9 Chronic obstructive pulmonary disease, unspecified; E78.2 Mixed hyperlipidemia; E10.29 Type 1 diabetes mellitus with other diabetic kidney complication; N18.32 Chronic kidney disease, stage 3b; N25.81 Secondary hyperparathyroidism of renal origin
CPT/HCPCS: 36415; 80053; 80061; 81001; 82043; 82550; 83036; 83970; 84100; 84153; 84439; 84443; 84481; 85025; G0103

== ENCOUNTER 2022-06-23 11:14 | Outpatient (CLI) | payer BC, SELFPAY ==
[2022-06-23 11:34] LABS: Appearance Urine Clear (Clear); Basophils Absolute Auto 0.06 K/mm3 (0.00-0.10); Basophils Percent Auto 0.9 % (0.0-1.0); Bilirubin Urine Negative (Negative); Blood Urine Negative (Negative); Color Urine Light Yellow (Yellow); Eosinophils Absolute Auto 0.16 K/mm3 (0.02-0.50); Eosinophils Percent Auto 2.3 % (1.0-6.0); Glucose Urine UA Negative (Negative); Hematocrit 37.3 % (40.0-54.0); Immature Granulocyte Absolute 0.07 K/mm3 (0.00-0.00); Ketones Urine Negative (Negative); Leukocyte Esterase Ur Negative LEU/UL (Negative); Lymphocytes Absolute Auto 2.38 K/mm3 (1.10-4.50); Lymphocytes Percent Auto 34.1 % (18.0-42.0); Mean Corpuscular HGB Conc 32.2 g/dL (32.0-36.0); Mean Corpuscular Hemoglobin 30.2 pg (27.0-31.0); Mean Platelet Volume 9.9 fl (8.7-11.0); Monocytes Absolute Auto 0.78 K/mm3 (0.10-0.90); Monocytes Percent Auto 11.2 % (2.0-11.0); Neutrophils Absolute Auto 3.5 K/mm3 (1.7-7.2); Neutrophils Percent Auto 50.5 % (50.0-70.0); Nitrate Urine Negative (Negative); Platelet Count Result 311 K/mm3 (150-420); Protein Urine Negative (Negative); Red Blood Count 3.97 M/mm3 (4.70-6.10); Red Cell Distribution Width 13.1 % (11.6-14.4); Urobilinogen Urine 0.2 mg/dL (0.2-1.0)
[2022-06-23 11:48] LABS: Creatinine Urine 36.32 mg/dL (40-278); Microalbumin Urine Random 63.2 mg/L
[2022-06-23 12:02] LABS: Add Urine Microscopic? NO
[2022-06-23 12:09] LABS: Albumin Level 3.6 g/dL (3.4-5.0); Anion Gap 9 mmol/L (8-16); Blood Urea Nitrogen 54 mg/dL (7-18); Calcium 8.9 mg/dL (8.5-10.1); Carbon Dioxide 24 mmol/L (21-32); Chloride 105 mmol/L (98-108); Estimated Glomerular Filt Rate 28; Glucose 157 mg/dL (70-99); Osmolality Calculated 303 mOsm/kg (285-295); Potassium 5.6 mmol/L (3.5-5.1); Sodium 138 mmol/L (136-145)
[2022-06-28 16:09] LABS: Parathyroid Intact 114 pg/mL (14-64)
== END 2022-06-23 11:15 | disposition home or self-care (01) ==
LOC: CHSLAB 11:18
PROVIDERS: PCP Internal Medicine
DX: N18.32 Chronic kidney disease, stage 3b (principal); N25.81 Secondary hyperparathyroidism of renal origin
CPT/HCPCS: 36415; 80069; 81003; 82043; 83970; 85025

== ENCOUNTER 2022-08-07 16:30 | Outpatient (CLI) | payer BC, SELFPAY ==
--- NOTE | ~2022-08-07 | XR_ITS ---
EXAMINATION: XR chest 2V Exam Date/Time: 08/07/2022 17:02 CDT HISTORY: INTERMITTENT LEFT SIDED CHEST PAIN 1 YR; EXCERTIONAL SOB. Comparison: 09/26/2014. RESULT: Lines, tubes, and devices: None. Lungs and pleura: Biapical pleural scarring. Senescent changes. Otherwise clear. Cardiomediastinal silhouette: Stable. Other: No acute osseous or upper abdominal finding. IMPRESSION: No acute cardiopulmonary process. Reviewed, dictated and finalized at location K.
[2022-08-07 17:05] LABS: Basophils Absolute Auto 0.05 K/mm3 (0.00-0.10); Basophils Percent Auto 0.7 % (0.0-1.0); Eosinophils Absolute Auto 0.15 K/mm3 (0.02-0.50); Hematocrit 34.1 % (40.0-54.0); Hemoglobin 11.1 g/dL (14.0-18.0); Immature Granulocyte Absolute 0.07 K/mm3 (0.00-0.00); Immature Granulocyte Percent A 0.9 % (0.0-0.0); Lymphocytes Absolute Auto 1.88 K/mm3 (1.10-4.50); Lymphocytes Percent Auto 24.4 % (18.0-42.0); Mean Corpuscular HGB Conc 32.6 g/dL (32.0-36.0); Mean Corpuscular Hemoglobin 30.7 pg (27.0-31.0); Mean Corpuscular Volume 94.5 fL (78.0-102.0); Mean Platelet Volume 10.3 fl (8.7-11.0); Monocytes Absolute Auto 0.87 K/mm3 (0.10-0.90); Monocytes Percent Auto 11.3 % (2.0-11.0); Neutrophils Absolute Auto 4.7 K/mm3 (1.7-7.2); Neutrophils Percent Auto 60.7 % (50.0-70.0); Platelet Count Result 264 K/mm3 (150-420); Red Blood Count 3.61 M/mm3 (4.70-6.10); Red Cell Distribution Width 13.2 % (11.6-14.4); White Blood Count 7.7 K/mm3 (4.8-10.8)
[2022-08-07 17:27] LABS: Alanine Aminotransferase 42 U/L (16-63); Albumin Level 3.6 g/dL (3.4-5.0); Alkaline Phosphatase 154 U/L (46-116); Amylase 58 U/L (25-115); Anion Gap 11 mmol/L (8-16); Aspartate Amino Transferase 35 U/L (15-37); Bilirubin,Total 0.3 mg/dL (0.00-1.00); Blood Urea Nitrogen 55 mg/dL (7-18); Calcium 8.8 mg/dL (8.5-10.1); Carbon Dioxide 21 mmol/L (21-32); Chloride 104 mmol/L (98-108); Estimated Glomerular Filt Rate 25; Glucose 167 mg/dL (70-99); Lipase 16 U/L (16-77); NT Pro B Type Natriuretic Pept 1002 pg/mL (0-125); Osmolality Calculated 301 mOsm/kg (285-295); Potassium 4.7 mmol/L (3.5-5.1); Sodium 136 mmol/L (136-145); Total Protein 6.4 g/dL (6.4-8.2)
== END 2022-08-07 16:31 | disposition home or self-care (01) ==
LOC: CHSLAB 16:33
PROVIDERS: PCP Internal Medicine; Visit Provider Internal Medicine
DX: R07.89 Other chest pain (principal); I10 Essential (primary) hypertension; J44.9 Chronic obstructive pulmonary disease, unspecified; K86.81 Exocrine pancreatic insufficiency
CPT/HCPCS: 36415; 71046; 80053; 82150; 83690; 83880; 85025

== ENCOUNTER 2022-08-12 11:06 | Outpatient (CLI) | payer BC, SELFPAY ==
[2022-08-12 11:57] LABS: Albumin Level 3.4 g/dL (3.4-5.0); Anion Gap 8 mmol/L (8-16); Blood Urea Nitrogen 44 mg/dL (7-18); Carbon Dioxide 23 mmol/L (21-32); Chloride 106 mmol/L (98-108); Estimated Glomerular Filt Rate 34; Glucose 127 mg/dL (70-99); Osmolality Calculated 297 mOsm/kg (285-295); Phosphorus 3.2 mg/dL (2.6-4.7); Potassium 5.5 mmol/L (3.5-5.1); Sodium 137 mmol/L (136-145)
[2022-08-17 13:33] LABS: Parathyroid Intact 80 pg/mL (14-64)
== END 2022-08-12 11:07 | disposition home or self-care (01) ==
LOC: CHSLAB 11:09
PROVIDERS: PCP Internal Medicine
DX: N18.32 Chronic kidney disease, stage 3b (principal); N25.81 Secondary hyperparathyroidism of renal origin; I12.9 Hypertensive chronic kidney disease with stage 1 through stage 4 chronic kidney disease, or unspecified chronic kidney disease
CPT/HCPCS: 36415; 80069; 82088; 83970; 84244

== ENCOUNTER 2022-08-28 14:39 | Outpatient (CLI) | payer BC, SELFPAY ==
--- NOTE | ~2022-08-28 | CT_ITS ---
EXAMINATION: CT lung screening DATE: 08/28/2022 15:08 INDICATION: Personal history nicotine dependence, prior smoker with 30 pack year history TECHNIQUE: Computed tomography (CT) of the chest was performed without intravenous contrast. The dose -length product (DLP) was 75.50 mGy-cm. Automated exposure control and iterative reconstruction techn ique were employed. COMPARISON: None FINDINGS: There is a 3 mm nodule of the left upper lobe. There is mild emphysema. There is mild atele ctasis or scarring in the upper lobes. The lungs are free of acute opacities. No pleural effusion or pneumothorax. No pathologically enlarged thoracic lymph nodes are identified. The heart size is kari l. Calcified coronary artery atherosclerosis is noted. There is mild thoracic spondylosis. Pneumobili a is noted, likely related to prior cholecystectomy. IMPRESSION: 1. Lung-RADS category 2: Benign appearance or behavior. Continue annual screening with noncontrast lo w-dose chest CT in 12 months. Reviewed, dictated and finalized at location A. IMPRESSION: 1. Lung-RADS category 2: Benign appearance or behavior. Continue annual screeni ng with noncontrast low-dose chest CT in 12 months.
--- NOTE | 2022-08-28 14:49 | ECHO_ITS ---
Patient Info Name: Evert Earl Age: 62 years : 1960 Gender: Male Ht: 72 in Wt: 165 lbs BSA: 1.95 m2 HR: 57 bpm BP: 128 / 77 mmHg Heart Rhythm: Sinus Rhythm Technical Quality: Fair Exam Date: 08/28/2022 3:00 PM Exam Location: [facility] Patient Status: Outpatient Admit Date: 08/28/2022 Staff Ordering Physician: Hany Lora MD Billboard Mechanic: Dennis Miranda RDCS Attending Provider: Hany Lora MD Referring Physician: Guido CANO; Exam Type: CA echo doppler color flow Study Info Indications - chest pain/screeiniong Complete two-dimensional, color flow and Doppler transthoracic echocardiogram is performed. Summary 1. Complete two-dimensional, color flow and Doppler transthoracic echocardiogram is performed. 2. Left ventricular chamber dimension is normal. 3. Left ventricular systolic function is normal, estimated at 60-65%. 4. The left ventricular diastolic function is grade I diastolic dysfunction. 5. E/e' 11 is mildly elevated. 6. There is trace tricuspid valve regurgitation. 7. No pulmonary hypertension, estimated pulmonary arterial systolic pressure is 25 mmHg. 8. There is trace pulmonic regurgitation. Left Ventricle E/e' 11 is mildly elevated. Left ventricular chamber dimension is normal. Left ventricular systolic function is normal, estimated at 60-65%. The left ventricular diastolic function is grade I diastolic dysfunction. Right Ventricle Right ventricular systolic function is normal and with normal TAPSE 2.5 cm. Right ventricular chamber dimension is normal. Left Atria Left atrial chamber dimension is normal. Right Atria Right atrial chamber dimension is normal. Aortic Valve The aortic valve is trileaflet. There is no aortic valve stenosis. There is no aortic valve regurgitation. Pulmonic Valve There is trace pulmonic regurgitation. Mitral Valve There is no mitral valve stenosis. There is no mitral valve regurgitation. Tricuspid Valve There is trace tricuspid valve regurgitation. No pulmonary hypertension, estimated pulmonary arterial systolic pressure is 25 mmHg. Pericardium/Pleural There is no pericardial effusion. Inferior Vena Cava Normal inferior vena cava with >50% collapse upon inspiration consistent with normal right atrial pressure, 5 mmHg. Aorta The aortic root size at the sinus of Valsalva is normal. Left Ventricular Outflow Tract Name Value Normal LVOT 2D LVOT Diameter 1.9 cm LVOT Doppler LVOT Peak Velocity 116 cm/s LVOT Peak Gradient 5 mmHg LVOT Mean Gradient 3 mmHg LVOT VTI 35 cm LVOT VTI/AV VTI Ratio 1.0 LVOT Stroke Volume 99 ml Pulmonic Valve Name Value Normal PV Doppler PV Peak Velocity 92 cm/s PV Peak Gradient 3 mmHg Mitral Valve
== END 2022-08-28 14:40 | disposition home or self-care (01) ==
LOC: CHSIMG 14:40
PROVIDERS: PCP Internal Medicine; Visit Provider Internal Medicine
DX: I50.9 Heart failure, unspecified (principal); R07.9 Chest pain, unspecified; Z12.2 Encounter for screening for malignant neoplasm of respiratory organs; Z87.891 Personal history of nicotine dependence
CPT/HCPCS: 71271; 93306

== ENCOUNTER 2022-09-25 09:12 | Outpatient (CLI) | payer BC, SELFPAY ==
--- NOTE | 2022-09-25 10:00 | EST_ITS ---
Patient Info Name: Evert Earl Age: 62 years : 1960 Gender: Male Ht: 70 in Wt: 165 lbs BSA: 1.93 m2 HR: 58 bpm BP: 130 / 74 mmHg Heart Rhythm: Bradycardia Technical Quality: Excellent Exam Date: 09/25/2022 10:46 AM Exam Location: [facility] Patient Status: Outpatient Admit Date: 09/25/2022 Staff Ordering Physician: Hany Lora MD Attending Provider: Hany Lora MD Exercise Technologist: Callie Romano CRT Exercise Physician: Eleni Felder CEP Exam Type: CA stress marilou w NM Study Info Indications ChestPain - SOB - A nuclear stress test was performed. History/Risk Factors Hypertension: Yes Dyslipidemia: Yes Chronic Lung Disease: Yes Diabetes Mellitus: Type I Tobacco Use: Current - Every Day History/Risk Factors Lung Disease. HTN. Diabetic. Smoker. hyperlipidemia. Summary 1. 1. Negative lexiscan stress test for ischemic ST changes by ECG criteria. 2. 2. Stable hemodynamics throughout the test. 3. 3. Nuclear scan to follow and will be reported separately. Please correlate with it. Protocol: LEXISCAN Stress ECG Details Stage: REST Duration (min): 1 min : 4 sec HR (bpm): 58 SBP (mmHg): 130 DBP (mmHg): 74 Stage: REST Duration (min): 3 min : 8 sec HR (bpm): 58 SBP (mmHg): 130 DBP (mmHg): 74 Stage: STAGE 1 Duration (min): 0 min : 11 sec HR (bpm): 58 SBP (mmHg): 130 DBP (mmHg): 74 Stage: RECOVERY Duration (min): 0 min : 48 sec HR (bpm): 71 SBP (mmHg): 130 DBP (mmHg): 74 Stage: RECOVERY Duration (min): 1 min : 48 sec HR (bpm): 81 SBP (mmHg): 130 DBP (mmHg): 74 Stage: RECOVERY Duration (min): 2 min : 48 sec HR (bpm): 80 SBP (mmHg): 124 DBP (mmHg): 62 Stage: RECOVERY Duration (min): 3 min : 48 sec HR (bpm): 76 SBP (mmHg): 106 DBP (mmHg): 65 Stage: RECOVERY Duration (min): 4 min : 48 sec HR (bpm): 76 SBP (mmHg): 113 DBP (mmHg): 61 Stage: RECOVERY Duration (min): 5 min : 48 sec HR (bpm): 74 SBP (mmHg): 114 DBP (mmHg): 66 Stage: RECOVERY Duration (min): 6 min : 24 sec HR (bpm): 74 SBP (mmHg): 114 DBP (mmHg): 66 Rest HR: 58 bpm Peak HR: 82 bpm Rest Sys BP: 130 mmHg Peak Sys BP: 126 mmHg Max Pred HR: 159 bpm % Max Pred HR: 52 % Target HR: 135 bpm Max RPP: 10,332 bpm*mmHg Termination Reason: Completion of Protocol Cardiac Symptoms: Dyspnea Total Time: 0 min : 11 sec Rest Chong BP: 74 mmHg Peak Chong BP: 75 mmHg Total Dose: 0.4 mg Resting ECG Sinus bradycardia. Stress ECG No abnormal ST/T wave changes. Arrhythmias Occasional PVCs. Report Signatures
--- NOTE | 2022-09-25 13:39 | WPDCARIOSTRE ---
Nuclear Stress Test INDICATIONS Indications: Dyspnea PROCEDURE Procedure Performed: Myocardial Perf Spect-Multi Procedure: Patient underwent a lexiscan stress test and immediately was injected with 34.3 mCi of cardiolyte. Multiple tomographic images were obtained. These are of good quality. There is no perfusion defect with stress imaging. A separate resting images were obtained after patient was injected with 10.3 mCi of cardiolyte. Multiple tomographic images were obtained. These are of good quality. There is no perfusion defect with rest imaging. CONCLUSION Conclusion: 1. Normal myocardial perfusion imaging demonstrating no perfusion defects with stress or rest imaging. 2. No reversible ischemia. 3. Left ventriculogram demonstrates normal measured ejection fraction of 55% with no wall motion abnormalities. 4. TID 1.07 is normal.
== END 2022-09-25 09:13 | disposition home or self-care (01) ==
LOC: CHSIMG 09:13
PROVIDERS: PCP Internal Medicine; Visit Provider Internal Medicine
DX: I50.9 Heart failure, unspecified (principal); R06.02 Shortness of breath; R93.1 Abnormal findings on diagnostic imaging of heart and coronary circulation
CPT/HCPCS: 78452; 93017; A9502; J2785

== ENCOUNTER 2022-11-04 08:59 | Outpatient (CLI) | payer BC, SELFPAY ==
[2022-11-04 10:01] LABS: Appearance Urine Clear (Clear); Bilirubin Urine Negative (Negative); Blood Urine Negative (Negative); Color Urine Light Yellow (Yellow); Glucose Urine UA Negative (Negative); Ketones Urine Negative (Negative); Leukocyte Esterase Ur Negative LEU/UL (Negative); Nitrate Urine Negative (Negative); Protein Urine Negative (Negative); Urobilinogen Urine 0.2 mg/dL (0.2-1.0)
[2022-11-04 10:02] LABS: Basophils Absolute Auto 0.07 K/mm3 (0.00-0.10); Basophils Percent Auto 1.1 % (0.0-1.0); Eosinophils Absolute Auto 0.17 K/mm3 (0.02-0.50); Eosinophils Percent Auto 2.7 % (1.0-6.0); Hematocrit 37.5 % (40.0-54.0); Hemoglobin 12.1 g/dL (14.0-18.0); Immature Granulocyte Absolute 0.07 K/mm3 (0.00-0.00); Immature Granulocyte Percent A 1.1 % (0.0-0.0); Lymphocytes Absolute Auto 1.93 K/mm3 (1.10-4.50); Lymphocytes Percent Auto 31.2 % (18.0-42.0); Mean Corpuscular HGB Conc 32.3 g/dL (32.0-36.0); Mean Corpuscular Hemoglobin 31.1 pg (27.0-31.0); Mean Corpuscular Volume 96.4 fL (78.0-102.0); Monocytes Absolute Auto 0.75 K/mm3 (0.10-0.90); Monocytes Percent Auto 12.1 % (2.0-11.0); Neutrophils Absolute Auto 3.2 K/mm3 (1.7-7.2); Neutrophils Percent Auto 51.8 % (50.0-70.0); Platelet Count Result 296 K/mm3 (150-420); Red Blood Count 3.89 M/mm3 (4.70-6.10); Red Cell Distribution Width 13.2 % (11.6-14.4); White Blood Count 6.2 K/mm3 (4.8-10.8)
[2022-11-04 10:11] LABS: Creatinine Urine 28.75 mg/dL (40-278); Microalbumin Urine Random 34.5 mg/L
[2022-11-04 10:13] LABS: Hemoglobin A1C 6.2 % (<5.7)
[2022-11-04 10:14] LABS: Add Urine Microscopic? NO
[2022-11-04 10:19] LABS: Alanine Aminotransferase 21 U/L (16-63); Albumin Level 3.3 g/dL (3.4-5.0); Alkaline Phosphatase 123 U/L (46-116); Anion Gap 10 mmol/L (8-16); Aspartate Amino Transferase 22 U/L (15-37); Bilirubin,Total 0.7 mg/dL (0.00-1.00); Blood Urea Nitrogen 58 mg/dL (7-18); Calcium 8.9 mg/dL (8.5-10.1); Carbon Dioxide 22 mmol/L (21-32); Chloride 107 mmol/L (98-108); Creatine Kinase 63 U/L (39-308); Estimated Glomerular Filt Rate 29; Free T3 1.66 pg/mL (2.18-3.98); Free T4 Free Thyroxine 1.26 ng/dL (0.76-1.46); Glucose 97 mg/dL (70-99); Osmolality Calculated 304 mOsm/kg (285-295); Phosphorus 5.2 mg/dL (2.6-4.7); Sodium 139 mmol/L (136-145); Thyroid Stimulating Hormone 0.17 uIU/mL (0.36-3.74); Total Protein 6.3 g/dL (6.4-8.2)
[2022-11-08 19:36] LABS: Parathyroid Intact 61 pg/mL (14-64)
== END 2022-11-04 09:00 | disposition home or self-care (01) ==
LOC: CHSLAB 09:02
PROVIDERS: PCP Internal Medicine
DX: E03.4 Atrophy of thyroid (acquired) (principal); E11.65 Type 2 diabetes mellitus with hyperglycemia; I10 Essential (primary) hypertension; E78.2 Mixed hyperlipidemia; N39.0 Urinary tract infection, site not specified; N18.32 Chronic kidney disease, stage 3b; N25.81 Secondary hyperparathyroidism of renal origin
CPT/HCPCS: 36415; 80053; 81003; 82043; 82550; 83036; 83970; 84100; 84439; 84443; 84481; 85025

== ENCOUNTER 2022-12-28 09:06 | Outpatient (CLI) | payer BC, SELFPAY ==
--- NOTE | ~2022-12-28 | XR_ITS ---
EXAMINATION: XR chest 2V DATE: 12/28/2022 09:45 INDICATION: Cough. Shortness of breath. Chest tightness. TECHNIQUE: Frontal and lateral views of the chest were obtained. COMPARISON: Chest 2 views 08/07/2022, chest CT 08/28/2022 FINDINGS: There is mild scarring at the lung apices. No pleural effusion or pneumothorax. The heart s ize is normal. IMPRESSION: 1. Stable mild scarring at the lung apices. Reviewed, dictated and finalized at location A.
[2022-12-28 09:36] LABS: Hematocrit 37.2 % (40.0-54.0); Mean Corpuscular HGB Conc 32.3 g/dL (32.0-36.0); Mean Corpuscular Hemoglobin 31.2 pg (27.0-31.0); Mean Corpuscular Volume 96.6 fL (78.0-102.0); Mean Platelet Volume 9.6 fl (8.7-11.0); Platelet Count Result 340 K/mm3 (150-420); Red Blood Count 3.85 M/mm3 (4.70-6.10); Red Cell Distribution Width 12.2 % (11.6-14.4)
[2022-12-28 09:53] LABS: Alanine Aminotransferase 10 U/L (16-63); Alkaline Phosphatase 131 U/L (46-116); Anion Gap 10 mmol/L (8-16); Aspartate Amino Transferase 14 U/L (15-37); Bilirubin,Total 0.4 mg/dL (0.00-1.00); Blood Urea Nitrogen 39 mg/dL (7-18); Calcium 9.4 mg/dL (8.5-10.1); Carbon Dioxide 22 mmol/L (21-32); Chloride 109 mmol/L (98-108); Estimated Glomerular Filt Rate 25; Glucose 136 mg/dL (70-99); Osmolality Calculated 303 mOsm/kg (285-295); Potassium 4.8 mmol/L (3.5-5.1); Sodium 141 mmol/L (136-145); Total Protein 6.8 g/dL (6.4-8.2)
[2022-12-28 09:57] LABS: Band Neutrophils Percent 0 % (0-6); Basophils Percent Manual 0 % (0-1); Eosinophils Absolute Manual 0.44 K/mm3 (0.02-0.5); Eosinophils Percent Manual 4 % (1-6); Lymphocytes Absolute Manual 2.53 K/mm3 (1.1-4.5); Lymphocytes Percent Manual 23 % (18-44); Metamyelocytes Percent 1 %; Monocytes Absolute Manual 1.32 K/mm3 (0.1-0.90); Monocytes Percent Manual 12 % (3-9); Neutrophils Percent Manual 60 % (46-73); Platelet Estimate Adequate (Adequate); Total Cells Counted 100
[2022-12-28 10:12] LABS: Influenza A QL RT-PCR Negative (Negative); Influenza B QL RT-PCR Negative (Negative); SARS-CoV-2 RNA PCR Negative (Negative)
[2022-12-28 10:16] LABS: Strep Group A RT-PCR NOT DETECTED (Negative)
== END 2022-12-28 09:07 | disposition home or self-care (01) ==
LOC: CHSLAB 09:07
PROVIDERS: PCP Internal Medicine; Visit Provider Internal Medicine
DX: R05.9 Cough, unspecified (principal); R91.8 Other nonspecific abnormal finding of lung field
CPT/HCPCS: 36415; 71046; 80053; 85025; 87636; 87651

== ENCOUNTER 2023-03-31 09:27 | Outpatient (CLI) | payer BC, SELFPAY ==
[2023-03-31 10:09] LABS: Basophils Absolute Auto 0.03 K/mm3 (0.00-0.10); Basophils Percent Auto 0.5 % (0.0-1.0); Eosinophils Absolute Auto 0.15 K/mm3 (0.02-0.50); Eosinophils Percent Auto 2.6 % (1.0-6.0); Hematocrit 36.6 % (40.0-54.0); Hemoglobin 11.7 g/dL (14.0-18.0); Immature Granulocyte Absolute 0.05 K/mm3 (0.00-0.00); Immature Granulocyte Percent A 0.9 % (0.0-0.0); Lymphocytes Absolute Auto 1.73 K/mm3 (1.10-4.50); Lymphocytes Percent Auto 29.9 % (18.0-42.0); Mean Corpuscular Hemoglobin 30.4 pg (27.0-31.0); Mean Corpuscular Volume 95.1 fL (78.0-102.0); Mean Platelet Volume 9.8 fl (8.7-11.0); Monocytes Absolute Auto 0.61 K/mm3 (0.10-0.90); Monocytes Percent Auto 10.5 % (2.0-11.0); Neutrophils Absolute Auto 3.2 K/mm3 (1.7-7.2); Neutrophils Percent Auto 55.6 % (50.0-70.0); Platelet Count Result 268 K/mm3 (150-420); Red Blood Count 3.85 M/mm3 (4.70-6.10); Red Cell Distribution Width 13.1 % (11.6-14.4); White Blood Count 5.8 K/mm3 (4.8-10.8)
[2023-03-31 10:21] LABS: Appearance Urine Clear (Clear); Bilirubin Urine Negative (Negative); Blood Urine Negative (Negative); Color Urine Light Yellow (Yellow); Glucose Urine UA Negative (Negative); Ketones Urine Negative (Negative); Leukocyte Esterase Ur Negative (Negative); Nitrate Urine Negative (Negative); Protein Urine Negative (Negative); Urobilinogen Urine 0.2 mg/dL (0.2-1.0); pH Urine 5.5 (5.0-8.0)
[2023-03-31 10:28] LABS: Creatinine Urine 29.69 mg/dL (40-278); MALB Creatinine Ratio 119.5 mg/g (0-30); Microalbumin Urine Random 35.5 mg/L; Total Protein Urine Random 11.1 mg/dL (0.0-11.9); Ur Ttl Prot Creatinine Ratio 0.37 mg/mg (0-0.20)
[2023-03-31 10:31] LABS: Add Urine Microscopic? NO
[2023-03-31 10:50] LABS: Hemoglobin A1C 6.6 % (<5.7)
[2023-03-31 11:01] LABS: Alanine Aminotransferase 45 U/L (16-63); Albumin Level 3.5 g/dL (3.4-5.0); Alkaline Phosphatase 94 U/L (46-116); Anion Gap 11 mmol/L (8-16); Aspartate Amino Transferase 27 U/L (15-37); Bilirubin,Total 0.5 mg/dL (0.00-1.00); Blood Urea Nitrogen 41 mg/dL (7-18); Calcium 8.4 mg/dL (8.5-10.1); Carbon Dioxide 21 mmol/L (21-32); Chloride 106 mmol/L (98-108); Cholesterol 149 mg/dL (0-200); Creatine Kinase 63 U/L (39-308); Estimated Glomerular Filt Rate 29; Ferritin 112 ng/mL (26-388); Free T4 Free Thyroxine 1.38 ng/dL (0.76-1.46); Glucose 161 mg/dL (70-99); HDL Direct 72 mg/dL (40-60); Iron 56 ug/dL (65-175); LDL Cholesterol Calculated 71 mg/dL (<130); Osmolality Calculated 299 mOsm/kg (285-295); Phosphorus 3.7 mg/dL (2.6-4.7); Potassium 4.8 mmol/L (3.5-5.1); Prostate Specific Antigen 0.5 ng/mL (< OR = 4.0); Sodium 138 mmol/L (136-145); Thyroid Stimulating Hormone 0.34 uIU/mL (0.36-3.74); Total Protein 6.3 g/dL (6.4-8.2); Triglycerides 32 mg/dL (0-150); Vitamin B12 973 pg/mL (193-986)
== END 2023-03-31 09:28 | disposition home or self-care (01) ==
PROVIDERS: PCP Internal Medicine; Visit Provider Internal Medicine
DX: E03.4 Atrophy of thyroid (acquired) (principal); E10.610 Type 1 diabetes mellitus with diabetic neuropathic arthropathy; N18.30 Chronic kidney disease, stage 3 unspecified; I10 Essential (primary) hypertension; D64.9 Anemia, unspecified
CPT/HCPCS: 36415; 80053; 80061; 81003; 82043; 82550; 82570; 82607; 82728; 83036; 83540; 84100; 84153; 84156; 84439; 84443; 85025; G0103

== ENCOUNTER 2023-07-02 15:34 | Outpatient (CLI) | payer BC, SELFPAY ==
[2023-07-02 15:51] LABS: Appearance Urine Clear (Clear); Bilirubin Urine Negative (Negative); Blood Urine Negative (Negative); Color Urine Yellow (Yellow); Glucose Urine UA Trace (Negative); Ketones Urine Negative (Negative); Leukocyte Esterase Ur Negative (Negative); Nitrate Urine Negative (Negative); Protein Urine Negative (Negative); Specific Grav Ur 1.015 (1.010-1.020); Urobilinogen Urine 0.2 mg/dL (0.2-1.0)
[2023-07-02 15:58] LABS: Add Urine Microscopic? YES; Bacteria Urine None seen /hpf; RBC Urine None seen /hpf (0-2); Squamous Epithelial Cell Urine Rare /hpf (Few); WBC Urine None seen /hpf (0-3)
[2023-07-02 16:19] LABS: Anion Gap 13 mmol/L (4-12); Blood Urea Nitrogen 53 mg/dL (7-18); Calcium 8.4 mg/dL (8.5-10.1); Carbon Dioxide 19 mmol/L (21-32); Chloride 105 mmol/L (98-108); Estimated Glomerular Filt Rate 20; Glucose 247 mg/dL (70-99); Osmolality Calculated 306 mOsm/kg (285-295); Potassium 4.4 mmol/L (3.5-5.1); Sodium 137 mmol/L (136-145)
== END 2023-07-02 15:35 | disposition home or self-care (01) ==
LOC: CHSLAB 15:35
PROVIDERS: PCP Internal Medicine; Visit Provider Internal Medicine
DX: I10 Essential (primary) hypertension (principal); N18.4 Chronic kidney disease, stage 4 (severe)
CPT/HCPCS: 36415; 80048; 81001

== ENCOUNTER 2023-08-07 10:19 | Outpatient (CLI) | payer BC, SELFPAY ==
[2023-08-07 10:43] LABS: Basophils Absolute Auto 0.06 K/mm3 (0.00-0.10); Basophils Percent Auto 1.1 % (0.0-1.0); Eosinophils Absolute Auto 0.18 K/mm3 (0.02-0.50); Eosinophils Percent Auto 3.2 % (1.0-6.0); Hematocrit 37.2 % (40.0-54.0); Hemoglobin 11.8 g/dL (14.0-18.0); Immature Granulocyte Absolute 0.06 K/mm3 (0.00-0.00); Immature Granulocyte Percent A 1.1 % (0.0-0.0); Lymphocytes Absolute Auto 1.41 K/mm3 (1.10-4.50); Lymphocytes Percent Auto 25.2 % (18.0-42.0); Mean Corpuscular HGB Conc 31.7 g/dL (32-36); Mean Corpuscular Hemoglobin 30.5 pg (27.0-31.0); Mean Corpuscular Volume 96.1 fL (78.0-102.0); Mean Platelet Volume 9.5 fl (8.7-11.0); Monocytes Absolute Auto 0.59 K/mm3 (0.10-0.90); Monocytes Percent Auto 10.6 % (2.0-11.0); Neutrophils Absolute Auto 3.29 K/mm3 (1.70-7.20); Neutrophils Percent Auto 58.8 % (50.0-70.0); Platelet Count Result 277 K/mm3 (150-420); Red Blood Count 3.87 M/mm3 (4.70-6.10); Red Cell Distribution Width 12.7 % (11.6-14.4); White Blood Count 5.6 K/mm3 (4.8-10.8)
[2023-08-07 10:59] LABS: Appearance Urine Clear (Clear); Bilirubin Urine Negative (Negative); Blood Urine Negative (Negative); Color Urine Light Yellow (Yellow); Glucose Urine UA Negative (Negative); Ketones Urine Negative (Negative); Leukocyte Esterase Ur Negative (Negative); Nitrate Urine Negative (Negative); Protein Urine Negative (Negative); Specific Grav Ur <= 1.005 (1.010-1.020); Urobilinogen Urine 0.2 mg/dL (0.2-1.0)
[2023-08-07 11:00] LABS: Add Urine Microscopic? NO
[2023-08-07 11:07] LABS: Hemoglobin A1C 6.4 % (<5.7)
[2023-08-07 11:32] LABS: Creatinine Urine 20.22 mg/dL (40-278); MALB Creatinine Ratio 93.4 mg/g (0-30); Microalbumin Urine Random 18.9 mg/L
[2023-08-07 11:53] LABS: Alanine Aminotransferase 44 U/L (16-63); Albumin Level 3.3 g/dL (3.4-5.0); Alkaline Phosphatase 166 U/L (46-116); Anion Gap 13 mmol/L (4-12); Aspartate Amino Transferase 31 U/L (15-37); Bilirubin,Total 0.6 mg/dL (0.00-1.00); Blood Urea Nitrogen 38 mg/dL (7-18); Carbon Dioxide 19 mmol/L (21-32); Chloride 103 mmol/L (98-108); Cholesterol 151 mg/dL (0-200); Creatine Kinase 64 U/L (39-308); Estimated Glomerular Filt Rate 27; Ferritin 101 ng/mL (26-388); Free T4 Free Thyroxine 1.35 ng/dL (0.76-1.46); Glucose 114 mg/dL (70-99); HDL Direct 78 mg/dL (40-60); Iron 74 ug/dL (65-175); LDL Cholesterol Calculated 68 mg/dL (<130); Osmolality Calculated 290 mOsm/kg (285-295); Percent Iron Saturation 35 % (12-57); Potassium 5.5 mmol/L (3.5-5.1); Sodium 135 mmol/L (136-145); Thyroid Stimulating Hormone 0.57 uIU/mL (0.36-3.74); Total Protein 6.4 g/dL (6.4-8.2); Triglycerides 24 mg/dL (0-150)
[2023-08-07 14:06] LABS: Phosphorus 3.9 mg/dL (2.6-4.7)
[2023-08-08 16:39] LABS: Parathyroid Intact 52 pg/mL (16-77)
[2023-08-09 06:33] LABS: Vitamin D 25 Hydroxy 50 ng/mL (30-100)
== END 2023-08-07 10:20 | disposition home or self-care (01) ==
LOC: CHSLAB 10:24
PROVIDERS: PCP Internal Medicine
DX: N18.32 Chronic kidney disease, stage 3b (principal); E78.2 Mixed hyperlipidemia; D64.9 Anemia, unspecified; E03.4 Atrophy of thyroid (acquired); E10.610 Type 1 diabetes mellitus with diabetic neuropathic arthropathy
CPT/HCPCS: 36415; 80053; 80061; 81003; 82043; 82306; 82550; 82728; 83036; 83540; 83550; 83970; 84100; 84439; 84443; 85025

== ENCOUNTER 2023-11-09 10:24 | Outpatient (CLI) | payer BC, SELFPAY ==
[2023-11-09 10:41] LABS: Add Urine Microscopic? NO; Appearance Urine Clear (Clear); Basophils Absolute Auto 0.04 K/mm3 (0.00-0.10); Basophils Percent Auto 0.7 % (0.0-1.0); Bilirubin Urine Negative (Negative); Blood Urine Negative (Negative); Color Urine Light Yellow (Yellow); Eosinophils Percent Auto 3.3 % (1.0-6.0); Glucose Urine UA Negative (Negative); Hematocrit 36.2 % (40.0-54.0); Hemoglobin 11.7 g/dL (14.0-18.0); Immature Granulocyte Absolute 0.07 K/mm3 (0.00-0.00); Immature Granulocyte Percent A 1.2 % (0.0-0.0); Ketones Urine Negative (Negative); Leukocyte Esterase Ur Negative (Negative); Lymphocytes Absolute Auto 1.78 K/mm3 (1.10-4.50); Lymphocytes Percent Auto 29.6 % (18.0-42.0); Mean Corpuscular HGB Conc 32.3 g/dL (32-36); Mean Corpuscular Hemoglobin 30.8 pg (27.0-31.0); Mean Corpuscular Volume 95.3 fL (78.0-102.0); Mean Platelet Volume 9.4 fl (8.7-11.0); Monocytes Absolute Auto 0.73 K/mm3 (0.10-0.90); Monocytes Percent Auto 12.1 % (2.0-11.0); Neutrophils Percent Auto 53.1 % (50.0-70.0); Nitrate Urine Negative (Negative); Platelet Count Result 259 K/mm3 (150-420); Protein Urine Negative (Negative); Red Cell Distribution Width 13.2 % (11.6-14.4); Urobilinogen Urine 0.2 mg/dL (0.2-1.0)
[2023-11-09 10:54] LABS: Creatinine Urine 26.92 mg/dL (40-278); MALB Creatinine Ratio 79.8 mg/g (0-30); Microalbumin Urine Random 21.5 mg/L
[2023-11-09 11:43] LABS: Alanine Aminotransferase 76 U/L (16-63); Albumin Level 3.3 g/dL (3.4-5.0); Alkaline Phosphatase 219 U/L (46-116); Anion Gap 13 mmol/L (4-12); Aspartate Amino Transferase 45 U/L (15-37); Bilirubin,Total 0.5 mg/dL (0.00-1.00); Blood Urea Nitrogen 42 mg/dL (7-18); Calcium 8.9 mg/dL (8.5-10.1); Carbon Dioxide 19 mmol/L (21-32); Chloride 105 mmol/L (98-108); Cholesterol 130 mg/dL (0-200); Creatine Kinase 50 U/L (39-308); Estimated Glomerular Filt Rate 29; Free T3 1.78 pg/mL (2.18-3.98); Free T4 Free Thyroxine 1.06 ng/dL (0.76-1.46); Glucose 104 mg/dL (70-99); HDL Direct 51 mg/dL (40-60); LDL Cholesterol Calculated 61 mg/dL (<130); Osmolality Calculated 294 mOsm/kg (285-295); Phosphorus 3.8 mg/dL (2.6-4.7); Potassium 4.9 mmol/L (3.5-5.1); Prostate Specific Antigen 0.5 ng/mL (< OR = 4.0); Sodium 137 mmol/L (136-145); Thyroid Stimulating Hormone 0.99 uIU/mL (0.36-3.74); Total Protein 6.3 g/dL (6.4-8.2); Triglycerides 92 mg/dL (0-150); Vitamin B12 839 pg/mL (193-986)
[2023-11-10 16:54] LABS: Parathyroid Intact 54 pg/mL (16-77)
== END 2023-11-09 10:25 | disposition home or self-care (01) ==
LOC: CHSLAB 10:28
PROVIDERS: PCP Internal Medicine
DX: E10.610 Type 1 diabetes mellitus with diabetic neuropathic arthropathy (principal); E10.22 Type 1 diabetes mellitus with diabetic chronic kidney disease; E03.4 Atrophy of thyroid (acquired); E78.2 Mixed hyperlipidemia; D63.1 Anemia in chronic kidney disease; N18.4 Chronic kidney disease, stage 4 (severe); N25.81 Secondary hyperparathyroidism of renal origin
CPT/HCPCS: 36415; 80053; 80061; 80069; 81003; 82043; 82550; 82607; 83970; 84153; 84439; 84443; 84481; 85025; G0103

== ENCOUNTER 2024-04-10 11:11 | Outpatient (CLI) | payer OTHER, SELFPAY ==
[2024-04-10 11:32] LABS: Hematocrit 38.8 % (40.0-54.0); Hemoglobin 12.2 g/dL (14.0-18.0); Mean Corpuscular HGB Conc 31.4 g/dL (32-36); Mean Corpuscular Hemoglobin 30.4 pg (27.0-31.0); Mean Corpuscular Volume 96.8 fL (78.0-102.0); Mean Platelet Volume 9.8 fl (8.7-11.0); Platelet Count Result 268 K/mm3 (150-420); Red Blood Count 4.01 M/mm3 (4.70-6.10); Red Cell Distribution Width 12.7 % (11.6-14.4); White Blood Count 6.3 K/mm3 (4.8-10.8)
[2024-04-10 12:33] LABS: Albumin Level 3.7 g/dL (3.4-5.0); Anion Gap 12 mmol/L (4-12); Blood Urea Nitrogen 39 mg/dL (7-18); Calcium 9.2 mg/dL (8.5-10.1); Carbon Dioxide 20 mmol/L (21-32); Chloride 108 mmol/L (98-108); Estimated Glomerular Filt Rate 24; Ferritin 107 ng/mL (26-388); Glucose 97 mg/dL (70-99); Iron 74 ug/dL (65-175); Osmolality Calculated 299 mOsm/kg (285-295); Percent Iron Saturation 30 % (12-57); Phosphorus 4.5 mg/dL (2.6-4.7); Potassium 5.6 mmol/L (3.5-5.1); Sodium 140 mmol/L (136-145)
[2024-04-10 13:09] LABS: MALB Creatinine Ratio 70.5 mg/g (0-30); Microalbumin Urine Random 35.2 mg/L
[2024-04-11 07:58] LABS: Vitamin D 25 Hydroxy 49 ng/mL (30-100)
[2024-04-11 13:43] LABS: Parathyroid Intact 67 pg/mL (16-77)
== END 2024-04-10 11:12 | disposition home or self-care (01) ==
PROVIDERS: PCP Internal Medicine
DX: N18.4 Chronic kidney disease, stage 4 (severe) (principal)
CPT/HCPCS: 36415; 80069; 82043; 82306; 82728; 83540; 83550; 83970; 85027

== ENCOUNTER 2024-05-23 11:03 | Outpatient (CLI) | payer OTHER, SELFPAY ==
[2024-05-23 11:43] LABS: Add Urine Microscopic? NO; Appearance Urine Clear (Clear); Basophils Absolute Auto 0.06 K/mm3 (0.00-0.10); Basophils Percent Auto 0.9 % (0.0-1.0); Bilirubin Urine Negative (Negative); Blood Urine Negative (Negative); Color Urine Light Yellow (Yellow); Eosinophils Absolute Auto 0.15 K/mm3 (0.02-0.50); Eosinophils Percent Auto 2.2 % (1.0-6.0); Glucose Urine UA Negative (Negative); Hematocrit 35.1 % (40.0-54.0); Hemoglobin 11.1 g/dL (14.0-18.0); Immature Granulocyte Absolute 0.07 K/mm3 (0.00-0.00); Ketones Urine Negative (Negative); Leukocyte Esterase Ur Negative (Negative); Lymphocytes Absolute Auto 1.69 K/mm3 (1.10-4.50); Mean Corpuscular HGB Conc 31.6 g/dL (32-36); Mean Corpuscular Hemoglobin 30.1 pg (27.0-31.0); Mean Corpuscular Volume 95.1 fL (78.0-102.0); Mean Platelet Volume 10.1 fl (8.7-11.0); Monocytes Absolute Auto 0.69 K/mm3 (0.10-0.90); Monocytes Percent Auto 10.2 % (2.0-11.0); Neutrophils Absolute Auto 4.09 K/mm3 (1.70-7.20); Neutrophils Percent Auto 60.7 % (50.0-70.0); Nitrate Urine Negative (Negative); Platelet Count Result 282 K/mm3 (150-420); Protein Urine Negative (Negative); Red Blood Count 3.69 M/mm3 (4.70-6.10); Red Cell Distribution Width 12.5 % (11.6-14.4); Urobilinogen Urine 0.2 mg/dL (0.2-1.0); White Blood Count 6.8 K/mm3 (4.8-10.8); pH Urine 5.5 (5.0-8.0)
[2024-05-23 11:48] LABS: Creatinine Urine 34.75 mg/dL (40-278); MALB Creatinine Ratio 42.5 mg/g (0-30); Microalbumin Urine Random 14.8 mg/L
--- OUTSIDE RECORDS SUMMARY | 2024-05-23 12:04 | XMS_ITS | Clinical Summary ---
Author Organization [facility] Address [address] [place] [address] Care Team Providers Care Genomics Scientist Name Role Phone Hany Lora MD Primary Care Provider [phone] Allergies Active Allergy Reactions Criticality Noted Date Comments Strawberries Rash Medium 10/29/2019 Medications levothyroxine 175 MCG tablet Take 175 mcg by mouth every morning. Active omeprazole 20 MG capsule Take 20 mg by mouth daily. Active losartan 25 MG tablet Take 25 mg by mouth daily. Active mirtazapine 15 MG tablet Take 15 mg by mouth nightly at bedtime. Active melatonin 5 MG tablet Take 5 mg by mouth nightly as needed. Active folic acid 800 MCG tablet Take 400 mcg by mouth daily. Active vitamin D3, cholecalciferol , (VITAMIN D-3) 10 MCG (400 UNIT) tablet Take 400 Units by mouth daily. Active levoFLOXacin 750 MG tablet Take 750 mg by mouth daily. Active insulin aspart 100 UNIT/ML patient supplied PUMP Inject into the skin continuous. Make and model of pump: MiniMed 670g Insulin type in pump: Novalog Basal rate: 7am-7pm 0.450 7pm-7am0.500 Insulin to CHO ratio: 1unit:15carbs Insulin Sensitivity factor: unknown Target blood glucose: 120 PCP- Dr Guido [facility] diabetes Active Pancrelipase, Ine-Kyve-Jbqk, 96734 UNIT capsule Take 1 capsule by mouth 3 (three) times daily with meals. Active metoprolol succinate ER 50 MG 24 hr tablet Take 50 mg by mouth daily. 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 01/02/2020 Family History Medical History Relation Comments No Known Problems Brother 1 No Known Problems Brother 2 No Known Problems Brother 3 Heart Daughter Alzheimers Father stomach issues Mother No Known Problems Sister No Known Problems Son Relation Status Comments Brother 1 Alive Brother 2 Alive Brother 3 Alive Daughter Father Mother Alive Sister Alive Son Alive Social History Tobacco Use Types Packs/Day Years Used Date Smoking Tobacco: Former Cigarettes Q uit: 12/29/2012 Smokeless Tobacco: Never Alcohol Use Standard Drinks/Week Comments Not Currently 0 (1 standard drink = 0.6 oz pur e alcohol) it has been 4-5 months Sex and Gender Information Value Date Recorded Sex Assigned at Not on file 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 Gender Identity Not on file Sexual Orientation Not on file Last Filed Vital Signs Vital Sign Reading Time Taken Comments Blood Pressure 116/65 01/02/2020 1:20 PM CDT Pulse 65 01/02/2020 1:20 PM CDT Temperature 37.2 C (98.9 F) 01/02/2020 1:20 PM CDT Respiratory Rate 16 01/02/2020 1:20 PM CDT Oxygen Saturation 100% 01/02/2020 1:20 PM CDT Inhaled Oxygen Concentration - - Weight 72.8 kg (160 lb 7.9 oz) 01/02/2020 9:45 A M CDT Height 182.9 cm (6') 01/02/2020 9:45 AM CDT Body Mass Index 21.77 01/02/2020 9:45 AM CDT Plan of Treatment Health Maintenance Due Date Last Done Comments Colorectal Cancer Screening Colonoscopy (10 Years) 1960 Annual Physical 1964 Hepatitis C 07/23/1979 DTaP, Tdap and Td Vaccines ( 1 - Tdap) 1980 Zoster Vaccines (2 of 2) 10/27/2019 09/01/2019 COVID-19 Vaccine (1 - 2023-2 5 season) 2023 Influenza Adult (#1) 2023 RSV Immunization or 60+ Years (1 - 1-dose 75+ series) 2036 Pneumococcal Vaccine: Pediat rics (0 to 5 Years) and At-Risk Patients (6 to 64 Years) Aged Out 01/04/2015 No longer eligi ble based on patient's age to complete this topic Meningococcal B Vaccine Aged Out No l onger eligible based on patient's age to complete this topic Meningococcal Vaccine Aged Out No juan antonio sara eligible based on patient's age to complete this topic RSV Immunizations Under 20 Months Aged Out No longer eligible based on patient's age to complete this topic Insurance [facility] Advance Directives * Full Code (Latest Code Status on File) Date Activated Date Inactivated Comments 01/02/2020 1:10 PM 01/02/2020 3:41 PM Care Teams Genomics Scientist Relationship Specialty Start Date End Date Hany Lora MD [address] [place] [address] PCP - General INTERNAL MEDICINE 09/15/19
--- OUTSIDE RECORDS SUMMARY | 2024-05-23 12:04 | XMS_ITS | Encounter Summary ---
Author Organization [facility] Address [facility] [place] [address] Care Team Providers Care Tire And Lube Technician Name Role Phone Hany Lora MD Primary Care Provider [phone] Encounter Details Date Type Department Care Team (Late st Contact Info) Description 12/30/2019 Prep for Procedure [facility] Pre-Admission Testing [address] [place] [address] Abiodun Vann MD [address] [place] [address] Social History Tobacco Use Types Packs/Day Years Used Date Smoking Tobacco: Former Cigarettes Q uit: 12/29/2012 Smokeless Tobacco: Never Alcohol Use Standard Drinks/Week Comments Not Currently 0 (1 standard drink = 0.6 oz pur e alcohol) it has been 4-5 months Sex and Gender Information Value Date Recorded Sex Assigned at Not on file 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 No / Unsure 01/02/2020 9:03 AM CDT documented as of this encounter Plan of Treatment Not on file documented as of this encounter Results * PRE-SURGICAL/PRE-PROCEDURE CORONAVIRUS (COVID 19) (12/30/2019 3:18 PM CDT) CORONAVIRUS SARS COV 2 PCR (RESP) NOT DETECTED NOT DETECTED 12/31/2019 11:[address] [facility] Comment: A Not Detected (negative) test result for this test means that SARS- CoV-2 RNA was not present in the specimen above the limit of detection. A negative result does not rule out the possibility of COVID-19 and should not be used as the sole basis for treatment or patient management decisions. If COVID-19 is still suspected, based on exposure history together with other clinical findings, re-testing should be considered in consultation with public health authorities. Laboratory test results should always be considered in the context of clinical observations and epidemiological data in making a final diagnosis and patient management decisions. Please review the Fact Sheets and FDA authorized labeling available for health care providers and patients using the following websites: https://www.[employer]/home/Covid-19/HCP/NAAT/fact-sheet2 https://www.[employer]/home/Covid-19/Patients/NAAT/ fact-sheet2 This test has been authorized by the FDA under an Emergency Use Authorization (EUA) for use by authorized laboratories. Due to the current public health emergency, [facility] is receiving a high volume of samples from a wide variety of swabs and media for COVID-19 testing. In order to serve patients during this public health crisis, samples from appropriate clinical sources are being tested. Negative test results derived from specimens received in non-commercially manufactured viral collection and transport media, or in media and sample collection kits not yet authorized by FDA for COVID-19 testing should be cautiously evaluated and the patient potentially subjected to extra precautions such as additional clinical monitoring, including collection of an additional specimen. Methodology: Nucleic Acid Amplification Test (NAAT) includes RT-PCR or TMA Additional information about COVID-19 can be found at the [facility] website: www.[employer]/Covid19. Test performed at [facility] [address] [address] [place] [address] Director: MERI GARDINER DO,MPH FIRST TEST YES 12/30/2019 3:[address] [facility] EMPLOYED IN HEALTHCARE NO 12/30/2019 3:[address] [facility] SYMPTOMATIC DEFINED BY CDC NO 12/30/2019 3:[address] [facility] DATE OF SYMPTOM ONSET UNKNOWN 12/30/2019 3:[address] [facility] HOSPITALIZATION STATUS NO 12/30/2019 3:[address] [facility] PATIENT IN ICU NO 12/30/2019 3:[address] [facility] RESIDENT OF [facility] NO 12/30/2019 3:[address] [facility] NOT 12/30/2019 3:[address] [facility] PATIENT'S RACE WHITE OR 12/30/2019 3:[address] [facility] ETHNICITY NONHISPANIC 12/30/2019 3:[address] [facility] SOURCE (QST) NASOPHARYNGEAL SWAB 12/30/2019 3:[address] [facility] NASOPHARYNGEAL SWAB / Unknown 12/30/2019 3:18 PM CDT us Abiodun Vann MD MICROBIOLOGY - GENERAL ORDERABLE S Final Result [facility] [address] [place] [address], [facility] [address] [place] [address], documented in this encounter Visit Diagnoses Diagnosis Preoperative testing- Primary Preoperative examination, unspecified documented in this encounter Additional Health Concerns Infection Onset Date Last Indicated Resolved Time COVID-19 Rule Out 12/30/2019 12/30/2019 12/31/2019 11:26 PM CDT documented as of this encounter Care Teams Tire And Lube Technician Relationship Specialty Start Date End Date Hany Lora MD [address] [place] [address] PCP - General INTERNAL MEDICINE 09/15/19 documented as of this encounter
--- OUTSIDE RECORDS SUMMARY | 2024-05-23 12:04 | XMS_ITS | Patient Health Record ---
Author Organization [facility] Address [address] [facility] [address] [place] [address] Care Team Providers Care Hand Gluer And Slicer Name Role Phone Hany Lora MD Primary Care Provider Richard PLAZA, TONY, JONI Unavailable REASON FOR REFERRAL No Information MEDICATIONS Medication SIG (Take, Route, Fr equency, Duration) Notes Start Date End Date Status Vitamin E Active Folic Acid Active Omeprazole Active Vitamin D Active NovoLOG Active Melatonin Active Metoprolol Tartrate Active Synthroid Active Mirtazapine Active SOCIAL HISTORY Tobacco Use: Social History Observation Description Date Details (start date - stop date) Former Smoker NA - NA Sex Assigned At : Social History Observation Description Sex Assigned At Unknown Tobacco Use/Smoking Question Answer Notes Are you a former smoker PLAN OF TREATMENT Pending Test Test Name Order Date Endoscopic Retrograde Cholangiopancreato graphy (ERCP) 10/23/2019 Endoscopic Retrograde Cholangiopancreato graphy (ERCP) 11/04/2019 Insurance Providers Payer Name Payer Address Payer Phone Subscriber Number Group Number Insured Name Patient Relationship to Insured Coverage Start Date Coverage End Date [facility] [address] [place], [place] [id number] Evert Earl Self - patient is the insured MEDICAL (GENERAL) HISTORY Medical History History ICD Code Type 1 diabetes with insulin pump, nephropathy, peripheral neuropahthy, Hypertension, COPD, hyperlipidemia, GERD, Stage 3 CKD, hypothyroidism Acute pancreatitis, pancreatic cyst, pas t tobacco use Surgical History Surgery Date(Month/Year) EUS 10/10/2019 [place] panc parenchymal abnormalities c/o atrophy, hypoechoic foci and lobularity in entire pancreas. 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 No solid mass lesions. PD severely dilated 13 mm with intraductal debris/slud ge, had prominently branched appearance and had a tortusou/ectatic appearance in main PD. This is due to main duct IPMN. Cystic lesion in pancreatic duct. Tissue obtained from from exam, results pending. Appearnace of IPMN. FNA. Cystic contents too thick and 2nd pass did not yield any fluid. Dilated CBD 12 mm Repeat EUS 6 month for FNA w ith larger needel and use of moray forcepts Path ??? gastric/duo bx neg, FNA neg for malignancy, inflammatory cells Colonoscopy 2012
--- OUTSIDE RECORDS SUMMARY | 2024-05-23 12:04 | XMS_ITS | Clinical Summary ---
Author Organization [facility] Address [address] [place] [address] Care Team Providers Care Analysis Internship Name Role Phone Hany Lora MD Primary Care Provider [phone] Jose Bautista MD Unavailable [phone] Tree Kelley MD Unavailable [phone] Momo Anderson MD Unavailable [phone] Kenneth Herrera MD Unavailable [phone] Allergies Active Allergy Reactions Criticality Noted Date Comments [place] Hives Medium 10/29/2019 Medications SYNTHROID 175 mcg tablet 1 tablet (175 mcg total) daily 8 Active mirtazapine (REMERON) 15 mg tablet Take 1 tablet (15 mg total) by mouth nightly 8 Active omeprazole (PriLOSEC) 20 mg capsule Take 1 capsule (20 mg total) by mouth daily 8 Active metoprolol XL (TOPROL-XL) 50 mg extended release tablet Take 1 tablet (50 mg total) by mouth daily 0 Active losartan (COZAAR) 25 mg tablet Take 2 tablets (50 mg total) by mouth daily 0 Active INSULIN SUBCUTANEOUS PUMP, NOVOLOG, 100 UNIT/ML INSULIN PUMP INFUSION (NovoLOG) Inject 0.5 Units under the skin every 1 (one) hour Active folic acid (FOLVITE) 800 mcg tablet Take 1 tablet (800 mcg total) by mouth daily Active Contour Next Test Strips strip 0 Active pancrelipase (CREON) 24,000 units of lipase capsule Take 1 capsule by mouth 3 (three) times a day with meals Active cholecalciferol (VITAMIN D-3) 2000 unit capsule Take 1 capsule (2,000 Units total) by mouth daily Active melatonin 10 mg tablet Take 1 tablet (10 mg total) by mouth nightly Active calcitRIOL (ROCALTROL) 0.25 mcg capsule Take 1 capsule (0.25 mcg total) by mouth daily Active tamsulosin (FLOMAX) 0.4 mg extended release capsule Take 1 capsule (0.4 mg total) by mouth daily Active Active Problems Problem Noted Date Diagnosed Date Left chronic serous otitis media 06/09/2020 Follow-up examination after gastrointestinal bailey musa 05/27/2020 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 04/13/2020 Chronic mucoid otitis media of left ear 02/19/20 20 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 02/04 Chronic otitis externa of left ear 02/05/2020 Ear canal mass, left 01/02/2020 Chronic suppurative otitis media of left ear 11/2019 Otorrhea of left ear 12/11/2019 Left ear pain 12/11/2019 IPMN (intraductal papillary mucinous neoplasm) 0 12/11/2019 Renal insufficiency 12/11/2019 Acute otitis media 12/02/2019 Mild malnutrition 10/30/2019 Pancreatitis Hypertension Diabetes mellitus type I Chronic diarrhea Right upper quadrant abdominal pain Biliary tract disease Surgical History Surgery Date Site/Laterality Comments COLONOSCOPY UPPER GASTROINTESTINAL ENDOSCOPY HAND SURGERY PANCREATICODUODENECTOMY 03/19/2019 - 03/18/2020 Medical History Medical History Date Comments Hypertension Peripheral neuropathy Thyroid disease Gastric reflux Chronic kidney disease Diabetes mellitus (HCC) PONV (postoperative nausea and vomiting) Pancreatitis GERD (gastroesophageal reflux disease) Chronic diarrhea Diabetes mellitus type I (HCC) Hypothyroidism Ear problems Family History Medical History Relation Name Comments Hypertension Father Hypertension Mother Relation Name Status Comments Father Mother Social History Tobacco Use Types Packs/Day Years Used Date Smoking Tobacco: Former Cigarettes 2013 Smokeless Tobacco: Never Alcohol Use Standard Drinks/Week Comments Not Currently 7 (1 standard drink = 0.6 oz pur e alcohol) occassionally AUDIT-C Answer Date Recorded Q1: How often do you have a drink containing alcohol? 4 or more times a week 10/08/2023 Q2: How many drinks containi ng alcohol do you have on a typical day when you are drinking? 1 or 2 Frequency of Binge Drinking Not on file 09/17 Sex and Gender Information Value Date Recorded Sex Assigned at Not on file Legal Sex Male 3:18 AM SIDE DOOR MAN Gender Identity Not on file Sexual Orientation Not on file Obstetrics History Last Filed Vital Signs Vital Sign Reading Time Taken Comments Blood Pressure 107/70 10/08/2023 8:37 AM CDT Pulse 64 10/08/2023 8:37 AM CDT Temperature 36.2 C (97.2 F) 10/08/2023 8:37 AM CDT Respiratory Rate 18 10/08/2023 8:37 AM CDT Oxygen Saturation 98% 10/08/2023 8:37 AM CDT Inhaled Oxygen Concentration - - Weight 74.8 kg (164 lb 14.4 oz) 10/08/2023 8:37 AM CDT Height 178.5 cm (5' 10.28 ) 10/08/2023 8:37 AM C DT Body Mass Index 23.48 10/08/2023 8:37 AM CDT Plan of Treatment Health Maintenance Due Date Last Done Comments Albumin Creatinine Ratio, Urine 1961 Colon Cancer Screening-Colonoscopy 1961 Depression Screening 1961 Foot Exam 1961 Prostate Cancer Screening-PSA 1961 Dilated Eye Exam 07/23/1971 Hepatitis B Screening 07/23/1979 Regular Well Visit/Exam 18-64 07/23/1979 Zoster Vaccine (2 of 2) 10/27/2019 09/01/2019 Hemoglobin A1C 10/27/2020 04/29/2020 Lipid Panel 01/20/2021 01/21/2020 TSH Level 01/20/2021 01/21/2020 eGFR 05/09/2021 05/09/2020, 02/, 05/07/2020, Additional history exists DTaP/Tdap/Td Vaccine (2 - Td or Tdap) 07/24/2021 07/25/2011 Influenza Vaccine (#1) 2023 9, 01/17/2018, 11/22/2016, Additional history exists Pneumococcal vaccine <65 (3 of 3 - PCV20 or PCV21) 01/18/2024 01/17/2019, 01/04/2015, 10/03/2013 Hepatitis C Screening Completed 01/21/2020 Medical Devices Explanted Type Area Chief Development Officer Device Identifier Shelf Expiration Date Model / Serial / Lot [employer] 6575 Sharpe Flexi-Stent 7fr 9cm Small Pigtail Flexible .035in Stent - [id number] Implanted:Qty: 1 on 10/29/2019 by Vijay Santos MD at [facility] Explanted:Qty: 1 on 11/17/2019 at [facility] N/A: Pancreas [employer] 07/16/2024 [id number] / / [id number] Conmed Yenni [id number] [place] Viabil 10mm 8.5fr 6cm 200cm Fully Covered Self Expand Pull - [id number] - [id number] Implanted:Qty: 1 on 10/29/2019 by Vijay Santos MD at [facility] Explanted:Qty: 1 on 11/17/2019 by Vijay Satnos MD at [facility] N/A: Bile Duct [employer] Yenni 06/30/2022 [id number] / [id number] / Procedures Procedure Name Priority Date/Time Associated Diagnosis Comments EGFR Routine 05/09/2020 6:49 AM SIDE DOOR MAN HEMOGLOBIN A1C Routine 04/29/2020 11:46 AM SIDE DOOR MAN Preoperative testing HEPATITIS C ANTIBODY Routine 01/21/2020 7:25 AM SIDE DOOR MAN LIPID PANEL Routine 01/21/2020 7:25 AM SIDE DOOR MAN THYROID FUNCTION CASCADE Routine 01/21/2020 7:25 AM SIDE DOOR MAN from Last 3 Months or Most Recently Relevant to Health Maintenance Results * eGFR (05/09/2020 6:49 AM SIDE DOOR MAN) eGFR 41 mL/min/1.7 3 m2 [facility] Comment: Interpretive Data Reference Interval Normal >/= 90 mL/min/1.73m2 Mildly decreased* 60 - 89 mL/min/1.73m2 Mildly to moderately decreased 45 - 59 mL/min/1.73m2 Moderately to severely decreased 30 - 44 mL/min/1.73m2 Severely decreased 15 - 29 mL/min/1.73m2 Kidney Failure < 15 mL/min/1.73m2 *Relative to young adult level Estimated glomerular filtration rate is determined by the CKD-EPI equation recommended by the National Kidney Foundation (KDIGO 2012 Clinical Practice Guideline for the Evaluation and Management of Chronic Kidney Disease. Kidney Intnl Suppl Mar 2012;3:1). The CKD-EPI equation should not be used for patients with unstable renal function and has not been validated in children and those over 70. Current interpretive data was last reviewed 2020 Blood specimen (specimen) 05/09/2020 6:49 AM SIDE DOOR MAN 05/09/2020 7:11 AM SIDE DOOR MAN us Momo Anderson MD LAB BLOOD ORDERABLES Final Res ult Performing Organization Address City/[facility]/ZIP Co de Phone Number [facility] [address] [place] [address] * (ABNORMAL) Hemoglobin A1c (04/29/2020 11:46 AM SIDE DOOR MAN) Hgb A1C 6.9(H) 4.0 - 5.6 % [facility] Estimated Average Glucose 151 mg/dL [facility] Comment: The ADA recommends reporting an estimated Average Glucose (eAG) with all Hemoglobin A1c results using the equation derived from a study of 507 normal and diabetic adults. Minority populations were underrepresented and children were not included. (Diabetes Care 31:9895-9524, 2008). The eAG is not equivalent to a fasting glucose. Blood specimen (specimen) 04/29/2020 11:46 AM SIDE DOOR MAN 04/29/2020 11:46 AM SIDE DOOR MAN us Kristin Modi NP LAB BLOOD ORDERABLES Final Result Performing Organization Address City/[facility]/ZIP Co de Phone Number [facility] [address] [place] [address] * TSH reflex to free T4 (01/21/2020 7:25 AM SIDE DOOR MAN) TSH See Comment 0.30 - 4.20 [facility] Comment:Test results inaccur ately filed to this patient's record. Test will be credited. Blood specimen (specimen) 01/21/2020 7:25 AM SIDE DOOR MAN 01/21/2020 8:11 AM SIDE DOOR MAN Narrative [facility] - 02/11/2020 9:28 AM SIDE DOOR MAN Informed Sheba Lancaster 02/11/2020 09:34:25 SIDE DOOR MAN of result corrections. [id number] Ramu De La Torre MD LAB BLOOD ORDERABLES Edited R esult - Final Performing Organization Address [facility] Co de Phone Number [facility] [address] [place] [address] * Hepatitis C antibody (01/21/2020 7:25 AM SIDE DOOR MAN) Hep C Ab See Comment Nonreactive [facility] Comment: Test results inaccurately filed to this patient's record. Test will be credited. Interpretive Data Nonreactive: Antibodies to HCV not detected. Does NOT exclude the possibility of recent exposure to HCV. Equivocal: Equivocal for HCV antibodies. Supplemental molecular testing will be automatically performed to determine infection status in accordance with current CDC screening recommendations. Reactive: Positive for HCV antibodies. This may represent current or past HCV infection. Supplemental molecular testing will be automatically performed to determine current infection status in accordance with current CDC screening recommendations. Interpretive data was last revised on 2019. Blood specimen (specimen) 01/21/2020 7:25 AM SIDE DOOR MAN 01/21/2020 8:11 AM SIDE DOOR MAN Narrative [facility] - 02/11/2020 9:27 AM SIDE DOOR MAN Informed Sheba Lancaster 02/11/2020 09:34:25 SIDE DOOR MAN of result corrections. [id number] us Ramu De La Torre MD LAB MICROBIOLOGY - GENERAL OR DERABLES Edited Result - Final Performing Organization Address City/[facility]/ZIP Co de Phone Number [facility] [address] [place] [address] * Lipid panel (01/21/2020 7:25 AM SIDE DOOR MAN) Cholesterol See Comment 30 - 199 [facility] Comment: Test results inaccurately filed to this patient's record. Test will be credited. Interpretive Data Ages < or = 19 years Acceptable: <170 mg/dL Borderline high: 170-199 mg/dL High: >or= 200 mg/dL Ages > or = 20 years Desirable: <200 mg/dL Borderline high: 200-239 mg/dL High: >or= 240 mg/dL Literature References: 1. Expert Panel on Integrated Guidelines for Cardiovascular Health and Risk Reduction in Children and Adolescents. Pediatrics 2011;128:S213 2. NCEP Expert Panel. Circulation 2004;110:227 Current Interpretive Data was last revised on 2017. Triglycerides See Comment <=149 [facility] Comment: Test results inaccurately filed to this patient's record. Test will be credited. Interpretive Data Ages < or = 9 years Acceptable: <75 mg/dL Borderline high: 75-99 mg/dL High: >or= 100 mg/dL Ages 10 to 20 years Acceptable: <90 mg/dL Borderline high: 90-129 mg/dL High: >or= 130 mg/dL Ages > or = 20 years Desirable: <150 mg/dL Borderline high: 150-199 mg/dL High: 200-499 mg/dL Very high: >or= 499 mg/dL Literature References: 1. Expert Panel on Integrated Guidelines for Cardiovascular Health and Risk Reduction in Children and Adolescents. Pediatrics 2011;128:S213 2. NCEP Expert Panel. Circulation 2004;110:227 Current Interpretive Data was last revised on 2017. HDL See Comment >=40 [facility] Comment: Test results inaccurately filed to this patient's record. Test will be credited. Interpretive Data Ages < or = 19 years Acceptable: >45 mg/dL Borderline low: 40-45 mg/dL Low: <40 mg/dL Ages > or = 20 years Desirable: >or= 60 mg/dL Low: <40 mg/dL Literature References: 1. Expert Panel on Integrated Guidelines for Cardiovascular Health and Risk Reduction in Children and Adolescents. Pediatrics 2011;128:S213 2. NCEP Expert Panel. Circulation 2004;110:227 Current Interpretive Data was last revised on 2017. LDL, calculated See Comment <=129 [facility] Comment: Test results inaccurately filed to this patient's record. Test will be credited. Interpretive Data Ages < or = 19 years Acceptable: <110 mg/dL Borderline high: 110-129 mg/dL High: >or= 130 mg/dL Ages > or = 20 years Optimal: <100 mg/dL Near optimal: 100-129 mg/dL Borderline high: 130-159 mg/dL High: >160 mg/dL Literature References: 1. Expert Panel on Integrated Guidelines for Cardiovascular Health and Risk Reduction in Children and Adolescents. Pediatrics 2011;128:S213 2. NCEP Expert Panel. Circulation 2004;110:227 Current Interpretive Data was last revised on 2017. Non-HDL Cholesterol See Comment [facility] Comment: Test results inaccurately filed to this patient's record. Test will be credited. Interpretive Data Ages < or = 19 years Acceptable: <120 mg/dL Borderline high: 120-144 mg/dL High: >145 mg/dL Ages > or = 20 years When triglycerides are >200 mg/dL, Non-HDL cholesterol is a secondary target of therapy with treatment goals that are 30 mg/dL greater than the LDL cholesterol target. Literature References: 1. Expert Panel on Integrated Guidelines for Cardiovascular Health and Risk Reduction in Children and Adolescents. Pediatrics 2011;128:S213 2. NCEP Expert Panel. Circulation 2004;110:227 Current Interpretive Data was last revised on 2017. Chol/HDL ratio See Comment [facility] Comment:Test results inaccur ately filed to this patient's record. Test will be credited. Blood specimen (specimen) 01/21/2020 7:25 AM SIDE DOOR MAN 01/21/2020 8:11 AM SIDE DOOR MAN Narrative [facility] - 02/11/2020 9:28 AM SIDE DOOR MAN Informed Sheba Lancaster 02/11/2020 09:34:25 SIDE DOOR MAN of result corrections. [id number] us Ramu De La Torre MD LAB BLOOD ORDERABLES Edited R esult - Final [facility] [address] [facility] [place] [address] from Last 3 Months or Most Recently Relevant to Health Maintenance Insurance BLUE ACCESS OOS BLUE ACCESS OOS Advance Directives For more information, please contact: [phone] * Full Code (Latest Code Status on File) Date Activated Date Inactivated Comments 05/03/2020 4:34 PM 05/10/2020 5:05 PM * Full Code Date Activated Date Inactivated Comments 01/23/2020 10:41 AM 01/23/2020 4:54 PM * Full Code Date Activated Date Inactivated Comments 11/17/2019 12:39 PM 11/17/2019 7:49 PM * Full Code Date Activated Date Inactivated Comments 10/10/2019 11:37 AM 10/10/2019 6:39 PM Care Teams Analysis Internship Relationship Specialty Start Date End Date Hany Lora MD [address] [place] [address] PCP - General 07/10/17 Jose Bautista MD [address] [place] [address] Medical Oncologist/Hematologi Medical Oncology 05/10/20 Tree Kelley MD [address] [place] [address] Surgeon General Surgery 05/10/20 Momo Anderson MD [address] [facility] [address] [place], [place] [id number] Consulting Physician Surgical Critical Care 06/03/20 Kenneth Herrera MD [address] [facility] [address] [place], [place] [id number] Consulting Physician Endocrinology Diabetes & Metabolism 06/03/20
--- OUTSIDE RECORDS SUMMARY | 2024-05-23 12:04 | XMS_ITS | Clinical Summary ---
Author Organization [facility] Address [address] [place] [address] Care Team Providers Care Flake Or Shred Roll Operator Name Role Phone Unavailable Primary Care Provider Unavailabl e Source Comments [facility],non-owned Affiliates and Associated Physician Practices is amultiple site organization consisting of ambulatory clinics and hospital sitesin [place], [place], [place] and [place]. This disclosure is being madepursuant to the Care Everywhere program and may not contain all information available regarding this patient. Last updated 17.[facility] Social History Tobacco Use Types Packs/Day Years Used Date Smoking Tobacco: Never Assessed Sex and Gender Information Value Date Recorded Sex Assigned at Not on file Gender Identity Not on file Sexual Orientation Not on file Plan of Treatment Health Maintenance Due Date Last Done Comments COLOGUARD (AGES 45-75) - COL ON CA SCREENING 1961 COLON MONITORING 1961 COLONOSCOPY - COLON CA SCREENING 1961 CT COLONOGRAPHY - COLON CA SCREENING 1961 Colorectal Cancer Screening 1961 FIT - COLON CA SCREENING 1961 FLEX SIG - COLON CA SCREENING 1961 LIPID TESTING 1961 HIV SCREENING 1976 HEPATITIS C SCREENING 07/18/1979 DTAP/TDAP/TD VACCINES (1 - Tdap) 1980 PNEUMOCOCCAL VACCINE 50+ (1 of 1 - PCV) 07/23/2011 ZOSTER VACCINE (1 of 2) 07/23/2011 COVID-19 VACCINE ( - 2023-2 5 season) 2023 INFLUENZA VACCINE (#1) 2023 DEPRESSION SCREENING 03/19/2024 Respiratory Syncytial Virus (RSV) Vaccine Pt: or over 60 yrs (1 - 1-dose 75+ series) 2036 HEPATITIS B VACCINE Aged Out No longe r eligible based on patient's age to complete this topic HIB VACCINE Aged Out No longer eligi ble based on patient's age to complete this topic HPV VACCINE Aged Out No longer eligi ble based on patient's age to complete this topic MENINGOCOCCAL (Group B) VACCINE Aged Out No longer eligible based on patient's age to complete this topic MENINGOCOCCAL VACCINE Aged Out No juan antonio sara eligible based on patient's age to complete this topic PNEUMOCOCCAL VACCINE Aged Out No long er eligible based on patient's age to complete this topic
--- OUTSIDE RECORDS SUMMARY | 2024-05-23 12:04 | XMS_ITS | Patient Health Summary ---
Author Organization [facility] Address [address] [place] [address] Care Team Providers Care Professor Of Theater Name Role Phone Unavailable Primary Care Provider Unavailabl e Note from [facility],non-owned Affiliates and Associated Physician Practices is amultiple site organization consisting of ambulatory clinics and hospital sitesin [place], [place], [place] and [place]. This disclosure is being madepursuant to the Care Everywhere program and may not contain all information available regarding this patient. Last updated 17.[facility] [employer] Social History Tobacco Use Types Packs/Day Years Used Date Smoking Tobacco: Never Assessed Sex and Gender Information Value Date Recorded Sex Assigned at Not on file Gender Identity Not on file Sexual Orientation Not on file Procedures * GROSS EXAM PATHOLOGY(Performed 01/24/2002) Results * GROSS EXAM PATHOLOGY (01/24/2002 10:56 AM PARARESCUE MANAGER) Result CASE NUMBER [id number] Comment: ORDERING PHYSICIAN LATASHA MANN SPECIMEN TYPE Kidney Biopsy-left Preop Dx Proteinuria Postop Dx Same Clinical Findings See above GROSS DESCRIPTION In saline on ice labeled left kidney are four castro/white needle core fragments 0.4-1.3 cm in length, submitted to [facility] for outside consultation. ([id number] Grossed by Hallie Santos M.D. DIAGNOSIS Left kidney, see outside consultation report Read by Hallie Santos M.D. Released By Hallie Santos M.D. cc PCP not in file MISCELLANEOUS SAMPLES / Unknown 01/24/2002 10:56 AM PARARESCUE MANAGER 01/24/2002 10:57 AM PARARESCUE MANAGER Historical Provider LAB - PATHOLOGY/C YTOLOGY ORDERABLES
--- OUTSIDE RECORDS SUMMARY | 2024-05-23 12:04 | XMS_ITS | Referral Summary ---
Author Organization [facility] Address [address] [place] [address] Care Team Providers Care Seating Upholsterer Name Role Phone Unavailable Primary Care Provider Unavailabl e Source Comments [facility],non-owned Affiliates and Associated Physician Practices is amultiple site organization consisting of ambulatory clinics and hospital sitesin [place], [place], [place] and [place]. This disclosure is being madepursuant to the Care Everywhere program and may not contain all information available regarding this patient. Last updated 17.[facility] Social History Tobacco Use Types Packs/Day Years Used Date Smoking Tobacco: Never Assessed Sex and Gender Information Value Date Recorded Sex Assigned at Not on file Gender Identity Not on file Sexual Orientation Not on file Plan of Treatment Not on file
--- OUTSIDE RECORDS SUMMARY | 2024-05-23 12:04 | XMS_ITS | Encounter Summary ---
Author Organization [facility] Address [address] [place] [address] Phone Care Team Providers Care Psychological Examiner Name Role Phone Hany Lora MD Primary Care Provider [phone] Encounter Details Date Type Department Care Team (Late st Contact Info) Description 11/05/2023 Telephone [facility] [address] [place] [address] Corinna Worrell CMA [address] [place] [address] Social History Tobacco Use Types Packs/Day Years Used Date Smoking Tobacco: Former Cigarettes Smokeless Tobacco: Never Alcohol Use Standard Drinks/Week Comments Never 0 (1 standard drink = 0.6 oz pur e alcohol) Sex and Gender Information Value Date Recorded Sex Assigned at Not on file Legal Sex Male 1:17 PM EST Gender Identity Not on file Sexual Orientation Not on file documented as of this encounter Miscellaneous Notes * Telephone Encounter - Corinna Worrell CMA - 11/06/2023 9:05 AM CDT Called and spoke to pt's , informed her of the below, she verbalized understanding. Got pt scheduled to see AL on 11/12. Got pt scheduled to see you on 04/17/24 asked if he needs to have labs before his appt next week? If so what labs would you like me toorder. * Telephone Encounter - Raj Morales MD - 11/05/2023 3:49 PM CDT He can see AL or SS this month and me in 2024. * Telephone Encounter - Corinna Worrell CMA - 11/05/2023 3:16 PM CDT Pt's called stating they pt is losing his insurance at the end of the month. So she is asking if it is ok to push the appt till March or if he can be squeezed in before the month ends documented in this encounter Plan of Treatment Upcoming Encounters Date Type Department Care Team (Late st Contact Info) Description 08/21/2024 1:15 PM CDT Office Visit [facility] [address] [place] [address] Montez Quan, [employer] [address] [place] [address] documented as of this encounter Visit Diagnoses Not on filedocumented in this encounter Care Teams Psychological Examiner Relationship Specialty Start Date End Date Hany Lora MD [address] [place] [address] PCP - General 03/28/21 documented as of this encounter
--- OUTSIDE RECORDS SUMMARY | 2024-05-23 12:04 | XMS_ITS | Clinical Summary ---
Author Organization [facility] Address [address] [address] Phone Care Team Providers Care Heel Room Supervisor Name Role Phone Hany Lora MD Primary Care Provider [phone] Allergies Active Allergy Reactions Criticality Noted Date Comments Lisinopril Cough 10/11/2021 [place] Extract Rash,Hives Medium 10/29/2019 Medications omeprazole (PriLOSEC) [address] capsule Take 40 mg by mouth 1 (one) time each day 8 Active mirtazapine (REMERON) 15 MG tablet Take 15 mg by mouth every night 2 Active Melatonin 10 MG tablet Take 10 mg by mouth at bed time Active Levothyroxine Sodium (SYNTHROID PO) Take 224 mcg by mouth 1 (one) time each day 2 Active folic acid (FOLVITE) 800 MCG tablet Take 800 mcg by mouth 1 (one) time each day Active Cholecalciferol 125 MCG (5000 UT) tablet Take 5,000 Units by mouth 1 (one) time each day Active Calcium Carb-Cholecalcif ty (CALCIUM 600-D PO) Take 1,200 mg by mouth 1 (one) time each day Active Multiple Vitamin (multivitamin) tablet Take 1 tablet by mouth 1 (one) time each day Active Insulin Aspart (NovoLOG) 100 UNIT/ML solution Inject as directed Via pump Active losartan (COZAAR) 50 MG tabletIndication s:Hypertensive chronic kidney disease, benign, with chronic kidney disease stage I through stage IV, or unspecified Take 1 tablet (50 mg total) by mouth 1 (one) time each day 30 tablet 11 4 Active Ogzdf-O-Qhosuvpn idase (BEANO PO) Take 1 tablet by mouth 1 (one) time each day Active tamsulosin (FLOMAX) 0.4 MG 24 hr capsule Take 0.4 mg by mouth 1 (one) time each day Active metoprolol succinate XL (TOPROL XL) 50 MG 24 hr tablet TAKE 1 TABLET ONCE A DAY 90 tablet 3 4 Active calcitriol (ROCALTROL) 0.25 MCG capsule Take 0.25 mcg by mouth 3 times weekly: Sun and Sunday morning Active torsemide (DEMADEX) 10 MG tabletIndication s:Hyperkalemia,H ypertensive chronic kidney disease, benign, with chronic kidney disease stage I through stage IV, or unspecified Take 1 tablet (10 mg total) by mouth 1 (one) time each day 90 tablet 3 5 04/17/19 26 Active Active Problems Problem Noted Date Diagnosed Date Anemia in chronic kidney disease 08/14/2023 Vitamin D deficiency 10/11/2021 Type 1 diabetes mellitus 10/11/2021 Chronic kidney disease, stage 4 (severe) 022 Secondary hyperparathyroidism of renal origin Hypertensive chronic kidney disease, benign, with chronic kidney disease stage I through stage IV, or unspecified 10/11/2021 Hyperkalemia 10/11/2021 Resolved Problems Problem Noted Date Diagnosed Date Resolved Date Sleep disorder 10/11/2021 08/14/2023 Right upper quadrant pain 10/11/2021 Renal disorder due to type 1 diabetes mellitus 10/11/2021 10/11/2021 Pancreatitis 10/11/2021 08/14/2023 Hypothyroidism 10/11/2021 08/14/2023 Gastro-esophageal reflux dis ease without esophagitis 10/11/2021 08/14/2023 Disorder of biliary tract 10/11/2021 Chronic kidney disease due to hypertension 10/11/2021 08/14/2023 Chronic serous otitis media of left ear 06/09/2020 08/14/2023 Surgical follow-up 05/27/2020 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 04/13/2020 08/14/2023 Malignant otitis externa 02/05/2020 Chronic otitis externa of left ear 02/05/2020 08/14/2023 Left mastoiditis 02/02/2020 10/11/2021 Mass of ear structure 01/02/20202021 Renal insufficiency 12/11/2019 10/12/19 22 Otorrhea of left ear 12/11/2019 024 Otalgia of left ear 12/11/2019 08/14/19 24 Benign neoplasm of pancreas 12/11/2019 08/14/2023 Acute otitis media 12/02/2019 Mild malnutrition 10/30/2019 10/11/2021 Encounters Date Type Department Care Team Description 04/17/2024 1:45 PM WRAPPER CASHIER Office Visit [facility] [address] [facility] [address] [place] [address] Raj Morales MD Chronic kidney disease, stage 4 (severe) (HCC) (Primary Dx); Hyperkalemia; 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); Hypertensive chronic kidney disease, benign, with chronic kidney disease stage I through stage IV, or unspecified; Anemia in chronic kidney disease; Secondary hyperparathyroidism of renal origin (HCC); Vitamin D deficiency, not otherwise specified 04/16/2024 Documentation Only [facility] [address] [facility] [address] [place] [address] [place], [place] from Last 3 Months Social History Tobacco Use Types Packs/Day Years Used Date Smoking Tobacco: Former Cigarettes Smokeless Tobacco: Never Tobacco Cessation:Counseling Given: Not Answered Alcohol Use Standard Drinks/Week Comments Never 0 (1 standard drink = 0.6 oz pur e alcohol) Sex and Gender Information Value Date Recorded Sex Assigned at Not on file Legal Sex Male 1:17 PM EST Gender Identity Not on file Sexual Orientation Not on file Last Filed Vital Signs Vital Sign Reading Time Taken Comments Blood Pressure 135/76 04/17/2024 1:32 PM WRAPPER CASHIER Pulse 65 04/17/2024 1:32 PM WRAPPER CASHIER Temperature 36.6 C (97.8 F) 10/08/2019 12:00 AM CDT Respiratory Rate - - Oxygen Saturation - - Inhaled Oxygen Concentration - - Weight 78.9 kg (174 lb) 04/17/2024 1:32 PM WRAPPER CASHIER Height 182.9 cm (6') 04/17/2024 1:32 PM WRAPPER CASHIER Body Mass Index 23.6 04/17/2024 1:32 PM WRAPPER CASHIER Plan of Treatment Upcoming Encounters Date Type Department Care Team (Late st Contact Info) Description 08/21/2024 1:15 PM CDT Office Visit [facility] 70 [facility] [address] [place] [address] Montez Quan, STORAGE WORKER 70 [facility] [address] [place] [address] Health Maintenance Due Date Last Done Comments Pneumococcal Vaccine: Pediat rics (0 to 5 Years) and At-Risk Patients (6 to 64 Years) (1 of 2 - PCV) 07/23/1966 Colorectal Cancer Screening: Annual FOBT 2010 Colorectal Cancer Screening: Colonoscopy 2010 Colorectal Cancer Screening: Sigmoidoscopy 2010 Diabetes: Hemoglobin A1C 04/14/2021 04/29/2020 Diabetes: Ophthalmology Exam 04/14/2021 Diabetes: Pedal Pulse Checked 04/14/2021 Diabetes: Sensory Foot Exam 04/14/2021 Diabetes: Visual Foot Exam 04/14/2021 Influenza Vaccine (#1) 2023 Hepatitis B Vaccine Aged Out No longe r eligible based on patient's age to complete this topic Insurance A[employer] Care Teams Heel Room Supervisor Relationship Specialty Start Date End Date Hany Lora MD [address] [place] [address] PCP - General 03/28/21
--- OUTSIDE RECORDS SUMMARY | 2024-05-23 12:04 | XMS_ITS | Referral Summary ---
Author Organization [facility] Address [address] [place] [address] Care Team Providers Care Insole Rasper Name Role Phone Hany Lora MD Primary Care Provider [phone] Jose Bautista MD Unavailable Tree Kelley MD Unavailable [phone] Momo Anderson MD Unavailable [phone] Kenneth Herrera MD Unavailable Allergies Active Allergy Reactions Criticality Noted Date Comments [place] Hives Medium 10/29/2019 Medications SYNTHROID 175 mcg [...] upper quadrant abdominal pain Biliary tract disease Social History Tobacco Use Types Packs/Day Years [...] on file Legal Sex Male 3:18 AM HUMAN RESOURCES BENEFITS MANAGER Gender Identity Not on file Sexual Orientation [...] 10/08/2023 8:37 AM CDT Plan of Treatment Not on file Medical Devices Explanted Type Area Claims Consultant Device Identifier Shelf Expiration Date Model / Serial / Lot [employer] 6575 Sharpe Flexi-Stent 7fr 9cm Small Pigtail Flexible .035in Stent - [id number] Implanted:Qty: 1 on 10/29/2019 by Vijay Santos MD at [facility] Explanted:Qty: 1 on 11/17/2019 at [facility] N/A: Pancreas [employer] 07/16/2024 [id number] / / [id number] Conmed Yenni [id number] [place] Viabil 10mm 8.5fr 6cm 200cm Fully Covered Self Expand Pull - [id number] - [id number] Implanted:Qty: 1 on 10/29/2019 by Vijay Santos MD at [facility] Explanted:Qty: 1 on 11/17/2019 by Vijay Santos MD at [facility] N/A: Bile Duct Conmed Yenni 06/30/2022 [id number] / [id number] / Procedures Procedure Name Priority Date/Time Associated Diagnosis Comments EGFR Routine 05/09/2020 6:49 AM HUMAN RESOURCES BENEFITS MANAGER HEMOGLOBIN A1C Routine 04/29/2020 11:46 AM HUMAN RESOURCES BENEFITS MANAGER Preoperative testing HEPATITIS C ANTIBODY Routine 01/21/2020 7:25 AM HUMAN RESOURCES BENEFITS MANAGER LIPID PANEL Routine 01/21/2020 7:25 AM HUMAN RESOURCES BENEFITS MANAGER THYROID FUNCTION CASCADE Routine 01/21/2020 7:25 AM HUMAN RESOURCES BENEFITS MANAGER from Last 3 Months or Most Recently Relevant to Health Maintenance Results * eGFR (05/09/2020 6:49 AM HUMAN RESOURCES BENEFITS MANAGER) eGFR 41 mL/min/1.7 3 m2 [facility] Comment: Interpretive Data Reference Interval Normal >/= [...] 2020 Blood specimen (specimen) 05/09/2020 6:49 AM HUMAN RESOURCES BENEFITS MANAGER 05/09/2020 7:11 AM HUMAN RESOURCES BENEFITS MANAGER us Momo Anderson MD LAB BLOOD ORDERABLES Final Res ult [facility] [address] Department [place] [address] * (ABNORMAL) Hemoglobin A1c (04/29/2020 11:46 AM HUMAN RESOURCES BENEFITS MANAGER) Hgb A1C 6.9(H) 4.0 - 5.6 % [facility] Estimated Average Glucose 151 mg/dL [facility] Comment: The ADA recommends reporting an estimated Average Glucose (eAG) with all Hemoglobin A1c results using the equation derived from a study of 507 normal and diabetic adults. Minority populations were underrepresented and children were not included. (Diabetes Care 31:9068-1289, 2008). The eAG is not equivalent to a fasting glucose. Blood specimen (specimen) 04/29/2020 11:46 AM HUMAN RESOURCES BENEFITS MANAGER 04/29/2020 11:46 AM HUMAN RESOURCES BENEFITS MANAGER Kristin Modi NP LAB BLOOD ORDERABLES Final Result Performing Organization Address [facility] Co de Phone Number [facility] [address] [facility] [place] [address] * TSH reflex to free T4 (01/21/2020 7:25 AM HUMAN RESOURCES BENEFITS MANAGER) TSH See Comment 0.30 - 4.20 [facility] Comment:Test results inaccur ately filed to this patient's record. Test will be credited. Blood specimen (specimen) 01/21/2020 7:25 AM HUMAN RESOURCES BENEFITS MANAGER 01/21/2020 8:11 AM HUMAN RESOURCES BENEFITS MANAGER Narrative [facility] - 02/11/2020 9:28 AM HUMAN RESOURCES BENEFITS MANAGER Informed Sheba ResendizGene 02/11/2020 09:34:25 HUMAN RESOURCES BENEFITS MANAGER of result corrections. [id number] Result [facility] Ramu De La Torre MD LAB BLOOD ORDERABLES Edited R esult - Final Performing Organization Address [facility] Co de Phone Number [facility] [address] [facility] [place] [address] * Hepatitis C antibody (01/21/2020 7:25 AM HUMAN RESOURCES BENEFITS MANAGER) Hep C Ab See Comment Nonreactive [facility] [...] 2019. Blood specimen (specimen) 01/21/2020 7:25 AM HUMAN RESOURCES BENEFITS MANAGER 01/21/2020 8:11 AM HUMAN RESOURCES BENEFITS MANAGER [facility]ative [facility] - 02/11/2020 9:27 AM HUMAN RESOURCES BENEFITS MANAGER Informed Sheba Lancaster 02/11/2020 09:34:25 HUMAN RESOURCES BENEFITS MANAGER of result corrections. [id number] us Ramu De La Torre MD LAB MICROBIOLOGY - GENERAL OR DERABLES Edited Result - Final [facility] [address] Department [place] [address] * Lipid panel (01/21/2020 7:25 AM HUMAN RESOURCES BENEFITS MANAGER) Cholesterol See Comment 30 - 199 [facility] [...] on 2017. LDL, calculated See Comment <=129 [facility] Comment: [...] revised on 2017. Non-HDL Cholesterol See Comment [facility] Comment: [...] revised on 2017. Chol/HDL ratio See Comment [facility] Comment:Test results inaccur ately filed to this patient's record. Test will be credited. Blood specimen (specimen) 01/21/2020 7:25 AM HUMAN RESOURCES BENEFITS MANAGER 01/21/2020 8:11 AM HUMAN RESOURCES BENEFITS MANAGER Narrative [facility] - 02/11/2020 9:28 AM HUMAN RESOURCES BENEFITS MANAGER Informed Sheba Lancaster 02/11/2020 09:34:25 HUMAN RESOURCES BENEFITS MANAGER of result corrections. [id number] us Ramu De La Torre MD LAB BLOOD ORDERABLES Edited R esult - Final [facility] [address] Department [place] [address] from Last 3 Months or Most Recently Relevant to Health Maintenance Insurance [employer] ACCESS OOS Advance Directives For more information, please contact: [phone] * Full Code (Latest Code Status on File) Date Activated Date Inactivated Comments 05/03/2020 4:34 PM 05/10/2020 5:05 PM * Full Code Date Activated Date Inactivated Comments 01/23/2020 10:41 AM 01/23/2020 4:54 PM * Full Code Date Activated Date Inactivated Comments 11/17/2019 12:39 PM 11/17/2019 7:49 PM * Full Code Date Activated Date Inactivated Comments 10/10/2019 11:37 AM 10/10/2019 6:39 PM Care Teams Insole Rasper Relationship Specialty Start Date End Date Hany Lora MD [address] [place] [address] PCP - General 07/10/17 Jose Bautista MD [address] [place] [address] Medical Oncologist/Hematologi Medical Oncology 05/10/20 Tree Kelley MD [address] [place] [address] Surgeon General Surgery 05/10/20 Momo Anderson MD [address] [facility] [address] [place] [address] Consulting Physician Surgical Critical Care 06/03/20 Kenneth Herrera MD [facility] [address] [place] [address] Consulting Physician Endocrinology Diabetes & Metabolism 06/03/20
[2024-05-23 12:30] LABS: Alanine Aminotransferase 58 U/L (16-63); Albumin Level 3.6 g/dL (3.4-5.0); Alkaline Phosphatase 186 U/L (46-116); Anion Gap 10 mmol/L (4-12); Aspartate Amino Transferase 36 U/L (15-37); Bilirubin,Total 0.6 mg/dL (0.00-1.00); Blood Urea Nitrogen 53 mg/dL (7-18); Calcium 9.2 mg/dL (8.5-10.1); Carbon Dioxide 22 mmol/L (21-32); Chloride 107 mmol/L (98-108); Cholesterol 125 mg/dL (0-200); Creatine Kinase 84 U/L (39-308); Estimated Glomerular Filt Rate 22; Ferritin 141 ng/mL (26-388); Glucose 170 mg/dL (70-99); HDL Direct 59 mg/dL (40-60); Iron 119 ug/dL (65-175); LDL Cholesterol Calculated 57 mg/dL (<130); Magnesium 1.4 mg/dL (1.8-2.4); Osmolality Calculated 306 mOsm/kg (285-295); Potassium 4.8 mmol/L (3.5-5.1); Prostate Specific Antigen 0.7 ng/mL (< OR = 4.0); Sodium 139 mmol/L (136-145); Total Protein 6.7 g/dL (6.4-8.2); Triglycerides 44 mg/dL (0-150); Vitamin B12 1023 pg/mL (193-986)
[2024-05-23 12:35] LABS: Hemoglobin A1C 5.3 % (<5.7)
[2024-05-25 09:08] LABS: Parathyroid Intact 124 pg/mL (16-77)
== END 2024-05-23 11:04 | disposition home or self-care (01) ==
LOC: CHSLAB 11:07
PROVIDERS: PCP Internal Medicine
DX: E03.4 Atrophy of thyroid (acquired) (principal); I12.9 Hypertensive chronic kidney disease with stage 1 through stage 4 chronic kidney disease, or unspecified chronic kidney disease; E11.65 Type 2 diabetes mellitus with hyperglycemia; N18.32 Chronic kidney disease, stage 3b; E78.2 Mixed hyperlipidemia; Z12.5 Encounter for screening for malignant neoplasm of prostate; D64.9 Anemia, unspecified; E53.8 Deficiency of other specified B group vitamins
CPT/HCPCS: 36415; 80053; 80061; 81003; 82043; 82550; 82607; 82728; 83036; 83540; 83735; 83970; 84100; 84153; 85025; G0103

== ENCOUNTER 2024-08-14 11:01 | Outpatient (CLI) | payer OTHER, SELFPAY ==
--- OUTSIDE RECORDS SUMMARY | 2024-08-14 11:07 | XMS_ITS | Encounter Summary ---
Author Organization [facility] Address [address] [place] [address] Phone Care Team Providers Care Assembler Cards And Announcements Name Role Phone Hany Lora MD Primary Care Provider [phone] Encounter Details Date Type Department Care Team (Late st Contact Info) Description 11/05/2023 Telephone [facility] [address] [facility] [address] [place] [address] Corinna Worrell CMA [address] [facility] [address] [place] [address] Social History Tobacco Use Types [...] Description 08/21/2024 1:15 PM CDT Office Visit [facility] [address] [facility] [address] [place] [address] Montez Quan, THREAD ROLLER [address] [facility] [address] [place] [address] documented as of this encounter Visit Diagnoses Not on filedocumented in this encounter Care Teams Assembler Cards And Announcements Relationship Specialty Start Date End Date Hany Lora MD [address] [place] [address] PCP - General 03/28/21 documented as of this encounter
--- OUTSIDE RECORDS SUMMARY | 2024-08-14 11:08 | XMS_ITS | Clinical Summary ---
Author Organization [facility] Address [address] [address] Phone Care Team Providers Care Pattern Changer Name Role Phone Hany Lora MD Primary Care Provider [phone] Allergies Active Allergy Reactions Criticality Noted Date Comments Lisinopril Cough 10/11/2021 [place] Extract Rash,Hives Medium 10/29/2019 Medications omeprazole (PriLOSEC) [...] each day 30 tablet 11 4 Active Vhtfd-B-Ziccslny idase (BEANO PO) Take 1 tablet by [...] Encounters Date Type Department Care Team Description 05/29/2024 Documentation Only [facility] [address] [facility] [address] [place] [id number] [place], [place] from Last 3 Months Social History Tobacco [...] Comments Blood Pressure 135/76 04/17/2024 1:32 PM THERMAL SURFACING MACHINE OPERATOR Pulse 65 04/17/2024 1:32 PM THERMAL SURFACING MACHINE OPERATOR Temperature 36.6 C (97.8 F) 10/08/2019 12:00 AM CDT Respiratory Rate - - Oxygen Saturation - - Inhaled Oxygen Concentration - - Weight 78.9 kg (174 lb) 04/17/2024 1:32 PM THERMAL SURFACING MACHINE OPERATOR Height 182.9 cm (6') 04/17/2024 1:32 PM THERMAL SURFACING MACHINE OPERATOR Body Mass Index 23.6 04/17/2024 1:32 PM THERMAL SURFACING MACHINE OPERATOR Plan of Treatment Upcoming Encounters Date Type Department Care Team (Late st Contact Info) Description 08/21/2024 1:15 PM CDT Office Visit [facility] [address] [facility] [address] [place] [phone] Montez Quan, MORTGAGE BANKER [address] [place] [phone] Health Maintenance Due Date Last Done Comments Pneumococcal Vaccine: 50+ Ye ars (1 of 2 - PCV) 1980 Colorectal Cancer Screening: Annual FOBT 2010 Colorectal Cancer Screening: Colonoscopy 2010 Colorectal Cancer Screening: Sigmoidoscopy 2010 Diabetes: Hemoglobin A1C 04/14/2021 04/29/2020 Diabetes: Ophthalmology Exam 04/14/2021 Diabetes: Pedal Pulse Checked 04/14/2021 Diabetes: Sensory Foot Exam 04/14/2021 Diabetes: Visual Foot Exam 04/14/2021 Influenza Vaccine (Season Ended) 2024 Hepatitis B Vaccine Aged Out No longe r eligible based on patient's age to complete this topic Insurance [employer] Commercial Care Teams Pattern Changer Relationship Specialty Start Date End Date Hany Lora MD [address] [place] [address] PCP - General 03/28/21
--- OUTSIDE RECORDS SUMMARY | 2024-08-14 11:08 | XMS_ITS | Patient Health Record ---
Author Organization [facility] Address [address] [facility] [address] [place] [address] Care Team Providers Care Coating Operator Name Role Phone Guido GARCIA, Hany Primary Care Provider Richrad PLAZA PA-C, JONI Unavailable Reason For Referral No Information Medications Medication SIG (Take, Route, Fr equency, Duration) Notes Start Date End Date Status Vitamin E Active Folic Acid Active Omeprazole Active Vitamin D Active NovoLOG Active Melatonin Active Metoprolol Tartrate Active Synthroid Active Mirtazapine Active Social History Tobacco Use: Social History Observation Description Date Details (start date - stop date) Former Smoker NA - NA Tobacco Use/Smoking Question Answer Notes Are you a former smoker Plan Of Treatment Pending Test Test Name Order Date Endoscopic Retrograde Cholangiopancreato graphy (ERCP) 10/23/2019 Endoscopic Retrograde Cholangiopancreato graphy (ERCP) 11/04/2019 Insurance Providers Payer Name Payer Address Payer Phone Subscriber Number Group Number Insured Name Patient Relationship to Insured Coverage Start Date Coverage End Date [place] [address] [place], [place] [id number] Evert Earl Self - patient is the insured Medical (General) History Medical History History ICD Code Type 1 diabetes with insulin pump, nephropathy, peripheral neuropahthy, Hypertension, COPD, hyperlipidemia, GERD, Stage 3 CKD, hypothyroidism Acute pancreatitis, pancreatic cyst, pas t tobacco use Surgical History Surgery Date(Month/Year) EUS 10/10/2019 antnena panc parenchymal abnormalities c/o atrophy, hypoechoic foci [...]
--- OUTSIDE RECORDS SUMMARY | 2024-08-14 11:08 | XMS_ITS | Referral Summary ---
Author Organization [facility] Address [address] [place] [address] Care Team Providers Care Operations Agent Name Role Phone Hany Lora MD Primary Care Provider + [phone] Jose Bautista MD Unavailable [phone] Tree Kelley MD Unavailable [phone] Momo Anderson MD Unavailable [phone] Kenneth Herrera MD Unavailable Allergies Active Allergy Reactions Criticality Noted Date Comments [place] Hives Medium 10/29/2019 Medications SYNTHROID 175 mcg [...] on file Legal Sex Male 3:18 AM EXECUTIVE SOUS CHEF Gender Identity Not on file Sexual Orientation [...] 8:37 AM CDT Height 178.5 cm (5' 10.28) 10/08/2023 8:37 AM C DT Body Mass Index 23.48 10/08/2023 8:37 AM CDT Plan of Treatment Not on file Medical Devices Explanted Type Area Stage Manager Device Identifier Shelf Expiration Date Model / Serial / Lot [employer] 6575 Sharpe Flexi-Stent 7fr 9cm Small Pigtail Flexible .035in Stent - [id number] Implanted:Qty: 1 on 10/29/2019 by Vijay Santos MD at [facility] Explanted:Qty: 1 on 11/17/2019 at [facility] N/A: Pancreas [employer] 07/16/2024 [id number] / / [id number] Conmed Yenni [id number] Wilber Viabil 10mm 8.5fr 6cm 200cm Fully Covered Self Expand Pull - [id number] - [id number] Implanted:Qty: 1 on 10/29/2019 by Vijay Santos MD at [facility] Explanted:Qty: 1 on 11/17/2019 by Vijay Santos MD at [facility] N/A: Bile Duct Conmed Yenni 06/30/2022 [id number] / [id number] / Procedures Procedure Name Priority Date/Time Associated Diagnosis Comments EGFR Routine 05/09/2020 6:49 AM EXECUTIVE SOUS CHEF HEMOGLOBIN A1C Routine 04/29/2020 11:46 AM EXECUTIVE SOUS CHEF Preoperative testing HEPATITIS C ANTIBODY Routine 01/21/2020 7:25 AM EXECUTIVE SOUS CHEF LIPID PANEL Routine 01/21/2020 7:25 AM EXECUTIVE SOUS CHEF THYROID FUNCTION CASCADE Routine 01/21/2020 7:25 AM EXECUTIVE SOUS CHEF from Last 3 Months or Most Recently Relevant to Health Maintenance Results * eGFR (05/09/2020 6:49 AM EXECUTIVE SOUS CHEF) eGFR 41 mL/min/1.7 3 m2 [facility] Comment: Interpretive Data Reference Interval Normal >/= [...] 2020 Blood specimen (specimen) 05/09/2020 6:49 AM EXECUTIVE SOUS CHEF 05/09/2020 7:11 AM EXECUTIVE SOUS CHEF us Momo Anderson MD LAB BLOOD ORDERABLES Final Res ult [facility] [address] Department [place] [address] * (ABNORMAL) Hemoglobin A1c (04/29/2020 11:46 AM EXECUTIVE SOUS CHEF) Hgb A1C 6.9(H) 4.0 - 5.6 % [facility] Estimated Average Glucose 151 mg/dL [facility] Comment: The ADA recommends reporting an estimated Average Glucose (eAG) with all Hemoglobin A1c results using the equation derived from a study of 507 normal and diabetic adults. Minority populations were underrepresented and children were not included. (Diabetes Care 31:6741-4801, 2008). The eAG is not equivalent to a fasting glucose. Blood specimen (specimen) 04/29/2020 11:46 AM EXECUTIVE SOUS CHEF 04/29/2020 11:46 AM EXECUTIVE SOUS CHEF Kristin Modi NP LAB BLOOD ORDERABLES Final Result Performing Organization Address [facility] Co de Phone Number [facility] [address] [facility] [place] [address] * TSH reflex to free T4 (01/21/2020 7:25 AM EXECUTIVE SOUS CHEF) TSH See Comment 0.30 - 4.20 [facility] Comment:Test results inaccur ately filed to this patient's record. Test will be credited. Blood specimen (specimen) 01/21/2020 7:25 AM EXECUTIVE SOUS CHEF 01/21/2020 8:11 AM EXECUTIVE SOUS CHEF Narrative [facility] - 02/11/2020 9:28 AM EXECUTIVE SOUS CHEF Informed Sheba ResendizGene 02/11/2020 09:34:25 EXECUTIVE SOUS CHEF of result corrections. [id number] Result [facility] Ramu De La Torre MD LAB BLOOD ORDERABLES Edited R esult - Final Performing Organization Address [facility] Co de Phone Number [facility] [address] [facility] [place] [address] * Hepatitis C antibody (01/21/2020 7:25 AM EXECUTIVE SOUS CHEF) Hep C Ab See Comment Nonreactive [facility] Comment: Test results inaccurately filed to this [...] 2019. Blood specimen (specimen) 01/21/2020 7:25 AM EXECUTIVE SOUS CHEF 01/21/2020 8:11 AM EXECUTIVE SOUS CHEF N[facility]ative [facility] - 02/11/2020 9:27 AM EXECUTIVE SOUS CHEF Informed Sheba Lancaster 02/11/2020 09:34:25 EXECUTIVE SOUS CHEF of result corrections. [id number] us Ramu De La Torre MD LAB MICROBIOLOGY - GENERAL OR DERABLES Edited Result - Final [facility] [address] Department [place] [address] * Lipid panel (01/21/2020 7:25 AM EXECUTIVE SOUS CHEF) Cholesterol See Comment 30 - 199 [facility] Comment: Test results inaccurately filed to this [...] revised on 2017. Triglycerides See Comment <=149 [facility] Comment: Test results inaccurately filed to this [...] revised on 2017. HDL See Comment >=40 [facility] Comment: Test results inaccurately filed to this [...] on 2017. LDL, calculated See Comment <=129 [facility] Comment: Test results inaccurately filed to this [...] revised on 2017. Non-HDL Cholesterol See Comment [facility] Comment: Test results inaccurately filed to this [...] revised on 2017. Chol/HDL ratio See Comment [facility] Comment:Test results inaccur ately filed to this patient's record. Test will be credited. Blood specimen (specimen) 01/21/2020 7:25 AM EXECUTIVE SOUS CHEF 01/21/2020 8:11 AM EXECUTIVE SOUS CHEF Narrative [facility] - 02/11/2020 9:28 AM EXECUTIVE SOUS CHEF Informed Sheba Lancaster 02/11/2020 09:34:25 EXECUTIVE SOUS CHEF of result corrections. [id number] us Ramu De La Torre MD LAB BLOOD ORDERABLES Edited R esult - Final [facility] [address] Department [place] [address] from Last 3 Months or Most Recently Relevant to Health Maintenance Insurance [employer] OOS [employer] OOS [employer] ACCESS OOS Advance Directives For more information, please contact: [phone] * Full Code (Latest Code Status on File) Date Activated Date Inactivated Comments 05/03/2020 4:34 PM 05/10/2020 5:05 PM * Full Code Date Activated Date Inactivated Comments 01/23/2020 10:41 AM 01/23/2020 4:54 PM * Full Code Date Activated Date Inactivated Comments 11/17/2019 12:39 PM 11/17/2019 7:49 PM * Full Code Date Activated Date Inactivated Comments 10/10/2019 11:37 AM 10/10/2019 6:39 PM Care Teams Operations Agent Relationship Specialty Start Date End Date Hany Lora MD [address] [place] [address] PCP - General 07/10/17 Jose Bautista MD [address] [place] [address] Medical Oncologist/Hematologi Medical Oncology 05/10/20 Tree Kelley MD [address] [place] [address] Surgeon General Surgery 05/10/20 Momo Anderson MD [address] [facility] [address] [place] [address] Consulting Physician Surgical Critical Care 06/03/20 Kenneth Herrera MD [facility] [address] [place] [address] Consulting Physician Endocrinology Diabetes & Metabolism 06/03/20
--- OUTSIDE RECORDS SUMMARY | 2024-08-14 11:08 | XMS_ITS | Clinical Summary ---
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 6575 Sharpe Flexi-Stent 7fr 9cm Small Pigtail Flexible .035in Stent - [id number] Implanted:Qty: 1 on 10/29/2019 by Vijay Santos MD at [facility] Explanted:Qty: 1 on 11/17/2019 at [facility] N/A: Pancreas [employer] 07/16/2024 [id number] / / [id number] Conmed Yenni [id number] [place] Viabil 10mm 8.5fr 6cm 200cm Fully Covered Self Expand Pull - [id number] - [id number] Implanted:Qty: 1 on 10/29/2019 by Vijay Santos MD at [facility] Explanted:Qty: 1 on 11/17/2019 by Vijay Santos MD at [facility] N/A: Bile Duct Conmed Yenni 06/30/2022 [id number] / [id number] / Procedures Procedure Name Priority Date/Time Associated Diagnosis Comments EGFR Routine 05/09/2020 6:49 AM SOFTWARE QA MANAGER HEMOGLOBIN A1C Routine 04/29/2020 11:46 AM SOFTWARE QA MANAGER Preoperative testing HEPATITIS C ANTIBODY Routine 01/21/2020 7:25 AM SOFTWARE QA MANAGER LIPID PANEL Routine 01/21/2020 7:25 AM SOFTWARE QA MANAGER THYROID FUNCTION CASCADE Routine 01/21/2020 7:25 AM SOFTWARE QA MANAGER from Last 3 Months or Most Recently Relevant to Health Maintenance Results * eGFR (05/09/2020 6:49 AM SOFTWARE QA MANAGER) eGFR 41 mL/min/1.7 3 m2 [facility] Comment: Interpretive Data Reference Interval Normal >/= [...] 2020 Blood specimen (specimen) 05/09/2020 6:49 AM SOFTWARE QA MANAGER 05/09/2020 7:11 AM SOFTWARE QA MANAGER us Momo Anderson MD LAB BLOOD ORDERABLES Final Res ult Performing Organization Address City/[facility]/ZIP Co de Phone Number [facility] [address] [employer] [place] [address] * (ABNORMAL) Hemoglobin A1c (04/29/2020 11:46 AM SOFTWARE QA MANAGER) Hgb A1C 6.9(H) 4.0 - 5.6 % [facility] Estimated Average Glucose 151 mg/dL [facility] Comment: The ADA recommends reporting an estimated Average Glucose (eAG) with all Hemoglobin A1c results using the equation derived from a study of 507 normal and diabetic adults. Minority populations were underrepresented and children were not included. (Diabetes Care 31:7627-2232, 2008). The eAG is not equivalent to a fasting glucose. Blood specimen (specimen) 04/29/2020 11:46 AM SOFTWARE QA MANAGER 04/29/2020 11:46 AM SOFTWARE QA MANAGER us Kristin Modi NP LAB BLOOD ORDERABLES Final Result Performing Organization Address City/[facility]/ZIP Co de Phone Number [facility] [address] [employer] [place] [address] * TSH reflex to free T4 (01/21/2020 7:25 AM SOFTWARE QA MANAGER) TSH See Comment 0.30 - 4.20 [facility] Comment:Test results inaccur ately filed to this patient's record. Test will be credited. Blood specimen (specimen) 01/21/2020 7:25 AM SOFTWARE QA MANAGER 01/21/2020 8:11 AM SOFTWARE QA MANAGER Narrative [facility] - 02/11/2020 9:28 AM SOFTWARE QA MANAGER Informed Sheba Lancaster 02/11/2020 09:34:25 SOFTWARE QA MANAGER of result corrections. [id number] Ramu De La Torre MD LAB BLOOD ORDERABLES Edited R esult - Final Performing Organization Address [facility] Co de Phone Number [facility] [address] Department [place] [address] * Hepatitis C antibody (01/21/2020 7:25 AM SOFTWARE QA MANAGER) Hep C Ab See Comment Nonreactive [facility] Comment: Test results inaccurately filed to [...] 2019. Blood specimen (specimen) 01/21/2020 7:25 AM SOFTWARE QA MANAGER 01/21/2020 8:11 AM SOFTWARE QA MANAGER Narrative [facility] - 02/11/2020 9:27 AM SOFTWARE QA MANAGER Informed Sheba Lancaster 02/11/2020 09:34:25 SOFTWARE QA MANAGER of result corrections. [id number] Ramu De La Torre MD LAB MICROBIOLOGY - GENERAL OR DERABLES Edited Result - Final Performing Organization Address City/[facility]/ZIP Co de Phone Number [facility] [address] Department [place] [address] * Lipid panel (01/21/2020 7:25 AM SOFTWARE QA MANAGER) Cholesterol See Comment 30 - 199 [facility] Comment: Test results inaccurately filed to [...] revised on 2017. Triglycerides See Comment <=149 [facility] Comment: Test results inaccurately filed to [...] revised on 2017. HDL See Comment >=40 [facility] Comment: Test results inaccurately filed to [...] on 2017. LDL, calculated See Comment <=129 [facility] Comment: Test results inaccurately filed to this [...] revised on 2017. Non-HDL Cholesterol See Comment [facility] Comment: Test results inaccurately filed to this [...] revised on 2017. Chol/HDL ratio See Comment [facility] Comment:Test results inaccur ately filed to this patient's record. Test will be credited. Blood specimen (specimen) 01/21/2020 7:25 AM SOFTWARE QA MANAGER 01/21/2020 8:11 AM SOFTWARE QA MANAGER Narrative [facility] - 02/11/2020 9:28 AM SOFTWARE QA MANAGER Informed Sheba Lancaster 02/11/2020 09:34:25 SOFTWARE QA MANAGER of result corrections. [id number] us Ramu De La Torre MD LAB BLOOD ORDERABLES Edited R esult - Final [facility] [address] [place] [address] from Last 3 Months or Most Recently Relevant to Health Maintenance Insurance BLUE ACCESS OOS BLUE ACCESS OOS BLUE ACCESS OOS Advance Directives For more information, please contact: [phone] * Full Code (Latest Code Status on File) Date Activated Date Inactivated Comments 05/03/2020 4:34 PM 05/10/2020 5:05 PM * Full Code Date Activated Date Inactivated Comments 01/23/2020 10:41 AM 01/23/2020 4:54 PM * Full Code Date Activated Date Inactivated Comments 11/17/2019 12:39 PM 11/17/2019 7:49 PM * Full Code Date Activated Date Inactivated Comments 10/10/2019 11:37 AM 10/10/2019 6:39 PM Care Teams Cardiac Cath Lab Manager Relationship Specialty Start Date End Date Hany Lora MD [address] [place] [address] PCP - General 07/10/17 Jose Bautista MD [address] [place] [address] Medical Oncologist/Hematologi Medical Oncology 05/10/20 Tree Kelley MD [address] [place] [address] Surgeon General Surgery 05/10/20 Momo Anderson MD [address] [facility] [address] [place], [place] [id number] Consulting Physician Surgical Critical Care 06/03/20 Kenneth Herrera MD [address] [facility] [address] [place], [place] [id number] Consulting Physician Endocrinology Diabetes & Metabolism 06/03/20
--- OUTSIDE RECORDS SUMMARY | 2024-08-14 11:08 | XMS_ITS | Clinical Summary ---
Author Organization [facility] Address [address] [place] [address] Care Team Providers Care Oracle Database Developer Name Role Phone Unavailable Primary Care Provider Unavailabl e Source Comments [facility],non-owned Affiliates and Associated Physician Practices is amultiple site organization consisting of ambulatory clinics and hospital sitesin [place], [place], [place] and [place]. This disclosure is being madepursuant to the Care Everywhere program and may not contain all information available regarding this patient. 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
[2024-08-14 11:26] LABS: Basophils Absolute Auto 0.05 K/mm3 (0.00-0.10); Eosinophils Absolute Auto 0.16 K/mm3 (0.02-0.50); Eosinophils Percent Auto 3.1 % (1.0-6.0); Hematocrit 37.1 % (40.0-54.0); Hemoglobin 11.7 g/dL (14.0-18.0); Immature Granulocyte Absolute 0.04 K/mm3 (0.00-0.00); Immature Granulocyte Percent A 0.8 % (0.0-0.0); Lymphocytes Absolute Auto 1.52 K/mm3 (1.10-4.50); Lymphocytes Percent Auto 29.3 % (18.0-42.0); Mean Corpuscular HGB Conc 31.5 g/dL (32-36); Mean Corpuscular Hemoglobin 30.2 pg (27.0-31.0); Mean Corpuscular Volume 95.9 fL (78.0-102.0); Monocytes Absolute Auto 0.61 K/mm3 (0.10-0.90); Monocytes Percent Auto 11.8 % (2.0-11.0); Platelet Count Result 260 K/mm3 (150-420); Red Blood Count 3.87 M/mm3 (4.70-6.10); Red Cell Distribution Width 12.6 % (11.6-14.4); White Blood Count 5.2 K/mm3 (4.8-10.8)
[2024-08-14 11:33] LABS: Creatinine Urine 30.3 mg/dL
[2024-08-14 11:38] LABS: MALB Creatinine Ratio 41.6 mg/g (0-30); Microalbumin Urine Random 12.6 mg/L (0-16.7)
[2024-08-14 11:43] LABS: Albumin Level 3.5 g/dL (3.5-5.1); Anion Gap 3 mmol/L (4-12); Blood Urea Nitrogen 33 mg/dL (9-20); Calcium 8.9 mg/dL (8.4-10.2); Carbon Dioxide 17 mmol/L (22-30); Chloride 115 mmol/L (98-107); Estimated Glomerular Filt Rate 30; Glucose 163 mg/dL (65-110); Iron 58 ug/dL (49-181); Magnesium 1.3 mg/dL (1.6-2.3); Osmolality Calculated 291 mOsm/kg (285-295); Phosphorus 3.4 mg/dL (2.5-4.5); Potassium 5.6 mmol/L (3.4-5.0); Sodium 135 mmol/L (137-145)
[2024-08-14 11:53] LABS: Percent Iron Saturation 23 % (20-50)
[2024-08-15 15:18] LABS: Parathyroid Intact 137 pg/mL (16-77)
== END 2024-08-14 11:02 | disposition home or self-care (01) ==
LOC: CHSLAB 11:06
PROVIDERS: PCP Internal Medicine
DX: N18.4 Chronic kidney disease, stage 4 (severe) (principal); D63.1 Anemia in chronic kidney disease
CPT/HCPCS: 36415; 80069; 82043; 82728; 83540; 83550; 83735; 83970; 85025

== ENCOUNTER 2024-09-10 12:30 | Outpatient (CLI) | payer OTHER, SELFPAY ==
[2024-09-10 13:07] LABS: Albumin Level 3.5 g/dL (3.5-5.1); Anion Gap 6 mmol/L (4-12); Blood Urea Nitrogen 36 mg/dL (9-20); Calcium 8.5 mg/dL (8.4-10.2); Carbon Dioxide 17 mmol/L (22-30); Chloride 111 mmol/L (98-107); Estimated Glomerular Filt Rate 30; Glucose 147 mg/dL (65-110); Osmolality Calculated 289 mOsm/kg (285-295); Phosphorus 3.2 mg/dL (2.5-4.5); Potassium 5.3 mmol/L (3.4-5.0); Sodium 134 mmol/L (137-145)
== END 2024-09-10 12:31 | disposition home or self-care (01) ==
LOC: CHSLAB 12:33
PROVIDERS: PCP Internal Medicine
DX: N18.4 Chronic kidney disease, stage 4 (severe) (principal)
CPT/HCPCS: 36415; 80069

== ENCOUNTER 2025-01-15 10:27 | Outpatient (CLI) | payer OTHER, SELFPAY ==
[2025-01-15 10:56] LABS: Hematocrit 36.1 % (40.0-54.0); Hemoglobin 11.3 g/dL (14.0-18.0); Immature Granulocyte Percent A 0.8 % (0.0-0.0); Lymphocytes Absolute Auto 1.58 K/mm3 (1.10-4.50); Mean Corpuscular HGB Conc 31.3 g/dL (32-36); Mean Corpuscular Hemoglobin 30.7 pg (27.0-31.0); Mean Corpuscular Volume 98.1 fL (78.0-102.0); Nucleated Red Blood Cells Absolute Auto 0.00 K/mm3 (0.00-0.00); Nucleated Red Blood Cells Perc 0.0 % (0-0.0); Platelet Count Result 259 K/mm3 (150-420); Red Blood Count 3.68 M/mm3 (4.70-6.10); White Blood Count 6.4 K/mm3 (4.8-10.8)
[2025-01-15 10:57] LABS: Add Urine Microscopic? NO; Appearance Urine Clear (Clear); Glucose Urine UA Negative (Negative); Leukocyte Esterase Ur Negative LEU/UL (Negative); Nitrate Urine Negative (Negative); Specific Grav Ur 1.015 (1.010-1.020)
[2025-01-15 11:21] LABS: Hemoglobin A1C 5.7 % (<5.7)
[2025-01-15 11:26] LABS: MALB Creatinine Ratio 8.7 mg/g (0-30)
[2025-01-15 11:32] LABS: Iron 78 ug/dL (49-181)
[2025-01-15 11:33] LABS: Alanine Aminotransferase 23 U/L (6-50); Albumin Level 3.9 g/dL (3.5-5.1); Alkaline Phosphatase 125 U/L (38-126); Anion Gap 7 mmol/L (4-12); Aspartate Amino Transferase 30 U/L (17-59); Bilirubin,Total 0.7 mg/dL (0.2-1.3); Blood Urea Nitrogen 43 mg/dL (9-20); Calcium 9.5 mg/dL (8.4-10.2); Carbon Dioxide 20 mmol/L (22-30); Chloride 109 mmol/L (98-107); Cholesterol 124 mg/dL (0-200); Estimated Glomerular Filt Rate 28; Glucose 111 mg/dL (65-110); HDL Direct 59 mg/dL; Osmolality Calculated 293 mOsm/kg (285-295); Sodium 136 mmol/L (137-145); Total Protein 6.6 g/dL (6.3-8.2); Triglycerides 48 mg/dL (<150)
--- OUTSIDE RECORDS SUMMARY | 2025-01-15 11:34 | XMS_ITS | Patient Health Record ---
Author Organization [facility] Address [address] [place], [place] [id number] Care Team Providers Care Art Display Maker Name Role Phone Williams Loraluna Unavailable Unavailable Reason For Referral No Information Medications Medication SIG (Take, Route, Frequency, Duration) Notes Start Date End Date Status naftifine hydrochloride 20 MG/ML Topical Cream [Naftin] CUTANEOUS naftifine hydrochloride 20 MG/ML Topical Cream [Naftin]Original Medicationnaftifine hydrochloride 20 MG/ML Topical Cream [Naftin] *Reorder from Whatever for eRx and Interaction Alerts* 2 Active diclofenac sodium 0.01 MG/MG Topical Gel [Voltaren] CUTANEOUS diclofenac sodium 0.01 MG/MG Topical Gel [Voltaren]Original Medicationdiclofenac sodium 0.01 MG/MG Topical Gel [Voltaren] *Reorder from Whatever for eRx and Interaction Alerts* 6 Active betamethasone 0.5 MG/ML / clotrimazole 10 MG/ML Topical Cream [Lotrisone] CUTANEOUS betamethasone 0.5 MG/ML / clotrimazole 10 MG/ML Topical Cream [Lotrisone]Original Medicationbetamethasone 0.5 MG/ML / clotrimazole 10 MG/ML Topical Cream [Lotrisone] *Reorder from Whatever for eRx and Interacti 2 Active aluminum chloride 200 MG/ML Topical Solution [Drysol] CUTANEOUS aluminum chloride 200 MG/ML Topical Solution [Drysol]Original Medicationaluminum chloride 200 MG/ML Topical Solution [Drysol] *Reorder from Whatever for eRx and Interaction Alerts* 2 Active Social History Social History Additional Details Category Social Info Options Details Migrated Social History Migrated Social History Alcohol intake : , History of tobacco use : , Smoking Status : Former smoker Plan Of Treatment No Information Insurance Providers Payer Name Payer Address Payer Phone Subscriber Number Group Number Insured Name Patient Relationship to Insured Coverage Start Date Coverage End Date [facility] [address] [address] [place] [address] [id number] RAFAL MATUTE Self - patient is the insured
--- OUTSIDE RECORDS SUMMARY | 2025-01-15 11:34 | XMS_ITS | Clinical Summary ---
Author Organization [facility] Address [address] [place] [address] Care Team Providers Care Leather Scraper Name Role Phone Hany Lora MD Primary Care Provider [phone] Jose Bautista MD Unavailable [phone] Tree Kelley MD Unavailable [phone] Momo Anderson MD Unavailable [phone] Kenneth Herrera MD Unavailable [phone] Allergies Active Allergy Reactions Criticality Noted Date Comments [place] Hives Medium 10/29/2019 Medications SYNTHROID 175 mcg [...] Gastric reflux Chronic kidney disease Diabetes mellitus PONV (postoperative nausea and vomiting) Pancreatitis GERD (gastroesophageal reflux disease) Chronic diarrhea Diabetes mellitus type I Hypothyroidism Ear problems Family History Medical History [...] on file 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 Gender Identity Not on file Sexual Orientation [...] PCV21) 01/18/2024 01/17/2019, 01/04/2015, 10/03/2013 Influenza Vaccine (#1) 2024 9, 01/17/2018, 11/22/2016, Additional history exists Hepatitis C Screening Completed 01/21/2020 Medical Devices Explanted Type Area Tail Dogger Device Identifier Shelf Expiration Date Model / Serial / Lot HDS [employer] 6575 Sharpe Flexi-Stent 7fr 9cm Small Pigtail Flexible .035in Stent - [id number] Implanted:Qty: 1 on 10/29/2019 by Vijay Santos MD at [facility] Explanted:Qty: 1 on 11/17/2019 at [facility] N/A: Pancreas [employer] 07/16/2024 [id number] / / [id number] Conmed Yenni [id number] [place] Viabil 10mm 8.5fr 6cm 200cm Fully Covered Self Expand Pull - [id number] - [id number] Implanted:Qty: 1 on 10/29/2019 by Vijay Santos MD at [facility] Explanted:Qty: 1 on 11/17/2019 by Vijay Santos MD at [facility] N/A: Bile Duct Conmed Yenni 06/30/2022 [id number] / [id number] / Procedures Procedure Name Priority Date/Time Associated Diagnosis Comments EGFR Routine 05/09/2020 6:49 AM JAILER/TRAINING OFFICER HEMOGLOBIN A1C Routine 04/29/2020 11:46 AM JAILER/TRAINING OFFICER Preoperative testing HEPATITIS C ANTIBODY Routine 01/21/2020 7:25 AM JAILER/TRAINING OFFICER LIPID PANEL Routine 01/21/2020 7:25 AM JAILER/TRAINING OFFICER THYROID FUNCTION CASCADE Routine 01/21/2020 7:25 AM JAILER/TRAINING OFFICER from Last 3 Months or Most Recently Relevant to Health Maintenance Results * eGFR (05/09/2020 6:49 AM JAILER/TRAINING OFFICER) eGFR 41 mL/min/1.7 3 m2 [facility] Comment: Interpretive Data Reference Interval Normal [...] 2020 Blood specimen (specimen) 05/09/2020 6:49 AM JAILER/TRAINING OFFICER 05/09/2020 7:11 AM JAILER/TRAINING OFFICER us Momo Anderson MD LAB BLOOD ORDERABLES Final Res ult Performing Organization Address [facility] Co de Phone Number [facility] [address] [place] [address] * (ABNORMAL) Hemoglobin A1c (04/29/2020 11:46 AM JAILER/TRAINING OFFICER) Hgb A1C 6.9(H) 4.0 - 5.6 % [facility] Estimated Average Glucose 151 mg/dL [facility] Comment: The ADA recommends reporting an estimated Average Glucose (eAG) with all Hemoglobin A1c results using the equation derived from a study of 507 normal and diabetic adults. Minority populations were underrepresented and children were not included. (Diabetes Care 31:4762-8854, 2008). The eAG is not equivalent to a fasting glucose. Blood specimen (specimen) 04/29/2020 11:46 AM JAILER/TRAINING OFFICER 04/29/2020 11:46 AM JAILER/TRAINING OFFICER us Kristin Modi NP LAB BLOOD ORDERABLES Final Result Performing Organization Address [facility]/ZIP Co de Phone Number [facility] [address] [place] [address] * TSH reflex to free T4 (01/21/2020 7:25 AM JAILER/TRAINING OFFICER) TSH See Comment 0.30 - 4.20 [facility] Comment:Test results inaccur ately filed to this patient's record. Test will be credited. Blood specimen (specimen) 01/21/2020 7:25 AM JAILER/TRAINING OFFICER 01/21/2020 8:11 AM JAILER/TRAINING OFFICER Narrative [facility] - 02/11/2020 9:28 AM JAILER/TRAINING OFFICER Informed Sheba Lancaster 02/11/2020 09:34:25 JAILER/TRAINING OFFICER of result corrections. [id number] us Ramu De La Torre MD LAB BLOOD ORDERABLES Edited R esult - Final Performing Organization Address [facility]/ZIP Co de Phone Number [facility] [address] [place] [address] * Hepatitis C antibody (01/21/2020 7:25 AM JAILER/TRAINING OFFICER) Hep C Ab See Comment Nonreactive [facility] Comment: Test results inaccurately filed to [...] 2019. Blood specimen (specimen) 01/21/2020 7:25 AM JAILER/TRAINING OFFICER 01/21/2020 8:11 AM JAILER/TRAINING OFFICER Tianna [facility] - 02/11/2020 9:27 AM JAILER/TRAINING OFFICER Informed Sheba Lancaster 02/11/2020 09:34:25 JAILER/TRAINING OFFICER of result corrections. [id number] us Ramu De La Torre MD LAB MICROBIOLOGY - GENERAL OR DERABLES Edited Result - Final Performing Organization Address City/[facility]/ZIP Co de Phone Number [facility] [address] Department [place] [address] * Lipid panel (01/21/2020 7:25 AM JAILER/TRAINING OFFICER) [facility] Cholesterol See Comment 30 - 199 [facility] Comment: Test results inaccurately filed to [...] revised on 2017. Triglycerides See Comment <=149 [facility] Comment: Test results inaccurately filed to [...] revised on 2017. HDL See Comment >=40 [facility] Comment: Test results inaccurately filed to [...] on 2017. LDL, calculated See Comment <=129 [facility] Comment: Test results inaccurately filed to [...] revised on 2017. Non-HDL Cholesterol See Comment [facility] Comment: Test results inaccurately filed to [...] revised on 2017. Chol/HDL ratio See Comment [facility] Comment:Test results inaccur ately filed to this patient's record. Test will be credited. Blood specimen (specimen) 01/21/2020 7:25 AM JAILER/TRAINING OFFICER 01/21/2020 8:11 AM JAILER/TRAINING OFFICER Narrative [facility] - 02/11/2020 9:28 AM JAILER/TRAINING OFFICER Informed Sheba Lancaster 02/11/2020 09:34:25 JAILER/TRAINING OFFICER of result corrections. [id number] us Ramu De La Torre MD LAB BLOOD ORDERABLES Edited R esult - Final [facility] [address] Department [place] [address] from Last 3 Months or Most Recently Relevant to Health Maintenance Insurance BLUE ACCESS OOS BLUE ACCESS OOS BLUE ACCESS OOS Advance Directives For more information, please contact: [phone] * Full Code (Latest Code Status on File) Date Activated Date Inactivated Comments 05/03/2020 4:34 PM 05/10/2020 5:05 PM * Full Code Date Activated Date Inactivated Comments 01/23/2020 10:41 AM 01/23/2020 4:54 PM * Full Code Date Activated Date Inactivated Comments 11/17/2019 12:39 PM 11/17/2019 7:49 PM * Full Code Date Activated Date Inactivated Comments 10/10/2019 11:37 AM 10/10/2019 6:39 PM Care Teams Leather Scraper Relationship Specialty Start Date End Date Hany Lora MD [address] [place] [address] PCP - General 07/10/17 Jose Bautista MD [address] [place] [address] Medical Oncologist/Hematologi Medical Oncology 05/10/20 Tree Kelley MD [address] [place] [address] Surgeon General Surgery 05/10/20 Momo Anderson MD [address] [place], [place] [id number] Consulting Physician Surgical Critical Care 06/03/20 Kenneth Herrera MD [address] [place], [place] [id number] Consulting Physician Endocrinology Diabetes & Metabolism 06/03/20
--- OUTSIDE RECORDS SUMMARY | 2025-01-15 11:34 | XMS_ITS | Encounter Summary ---
Author Organization [facility] Address [address] [place] [address] Phone Care Team Providers Care Truckman Name Role Phone Hany Lora MD Primary Care Provider [phone] Encounter Details Date Type Department Care Team (Late st Contact Info) Description 11/05/2023 Telephone [facility] [address] [facility] [address] [place] [address] Corinna Worrell CMA [address] [facility] [address] [place] [address] Social History Tobacco Use Types [...] Care Team (Late st Contact Info) Description 01/20/2025 1:00 PM PRINTING PRESS OPERATOR Office Visit [facility] [address] [facility] [address] [place] [address] Montez Quan, ROADWAY TECHNICIAN [address] [facility] [address] [place] [phone] documented as of this encounter Visit Diagnoses Not on filedocumented in this encounter Care Teams Truckman Relationship Specialty Start Date End Date Hany Lora MD [address] [place] [address] PCP - General 03/28/21 documented as of this encounter
--- OUTSIDE RECORDS SUMMARY | 2025-01-15 11:34 | XMS_ITS | Encounter Summary ---
Author Organization [facility] Address Formerly [facility] [place] [address] Care Team Providers Care Bankruptcy Manager Name Role Phone Hany Lora MD Primary Care Provider [phone] Encounter Details Date Type Department Care Team (Late st Contact Info) Description 12/30/2019 Prep for Procedure [facility] Pre-Admission Testing [address] [place] [address] Abiodun Vann MD [address] [place] [address] Social History Tobacco Use Types Packs/Day Years Used Date Smoking Tobacco: Former Cigarettes Q uit: 12/29/2012 Smokeless Tobacco: Never Alcohol Use Standard Drinks/Week Comments Not Currently 0 (1 standard drink = 0.6 oz pur e alcohol) it has been 4-5 months Sex and Gender Information Value Date Recorded Sex Assigned at Not on file Legal Sex 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 Due to the current public health emergency, [facility] is receiving a high volume of samples [...] about COVID-19 can be found at the [facility] website: www.[employer]/Covid19. Test performed at [facility] [address] [place] [address] Director: MERI GARDINER DO,MPH FIRST TEST YES 12/30/2019 3:18 PM CDT [facility] EMPLOYED IN HEALTHCARE NO 12/30/2019 3:18 PM CDT [facility] SYMPTOMATIC DEFINED BY CDC NO 12/30/2019 3:18 PM CDT [facility] DATE OF SYMPTOM ONSET UNKNOWN 12/30/2019 3:19 PM CDT [facility] HOSPITALIZATION STATUS NO 12/30/2019 3:18 PM CDT [facility] PATIENT IN ICU NO 12/30/2019 3:18 PM CDT [facility] RESIDENT OF [facility] NO 12/30/2019 3:18 PM CDT [facility] NOT 12/30/2019 3:19 PM CDT [facility] PATIENT'S RACE WHITE OR 12/30/2019 3:18 PM CDT [facility] ETHNICITY NONHISPANIC 12/30/2019 3:18 PM CDT [facility] SOURCE (QST) NASOPHARYNGEAL SWAB 12/30/2019 3:18 PM CDT [facility] NASOPHARYNGEAL SWAB / Unknown 12/30/2019 3:18 PM CDT us Abiodun Vann MD MICROBIOLOGY - GENERAL ORDERABLE S Final Result [facility] [address] [place] [address], [facility] [address] [place] [address], documented in this encounter Visit Diagnoses Diagnosis Preoperative testing- Primary Preoperative examination, unspecified documented in this encounter Additional Health Concerns Infection Onset Date Last Indicated Resolved Time COVID-19 Rule Out 12/30/2019 12/30/2019 12/31/2019 11:26 PM CDT documented as of this encounter Care Teams Bankruptcy Manager Relationship Specialty Start Date End Date Hany Lora MD [address] [place] [address] PCP - General INTERNAL MEDICINE 09/15/19 documented as of this encounter
--- OUTSIDE RECORDS SUMMARY | 2025-01-15 11:34 | XMS_ITS | Clinical Summary ---
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 Gender Identity Not on file Sexual Orientation [...] Td Vaccines ( 1 - Tdap) 1980 Pneumococcal Vaccine: 50+ Ye ars (2 of 2 - PCV20 or PCV21) 01/05/2016 01/04/2015 Zoster Vaccines (2 of 2) 10/27/2019 09/01/2019 COVID-19 Vaccine (1 - 2024-2 6 season) 2024 Influenza Adult (#1) 2024 RSV Immunization or 60+ Years (1 - 1-dose 75+ series) 2036 Hepatitis A Vaccines Aged Out No long er eligible based [...] patient's age to complete this topic Insurance [facility] Advance Directives * Full Code (Latest Code Status on File) Date Activated Date Inactivated Comments 01/02/2020 1:10 PM 01/02/2020 3:41 PM Care Teams Manager Lsw Relationship Specialty Start Date End Date Hany Lora MD [address] [place] [address] PCP - General INTERNAL MEDICINE 09/15/19
--- OUTSIDE RECORDS SUMMARY | 2025-01-15 11:34 | XMS_ITS | Clinical Summary ---
Author Organization [facility] Address [address] [address] Phone Care Team Providers Care Supervisor Capacitor Processing Name Role Phone Hany Lora MD Primary Care Provider [phone] Allergies Active Allergy Reactions Criticality Noted Date Comments Lisinopril Cough 10/11/2021 [place] Extract Rash,Hives Medium 10/29/2019 Medications omeprazole (PriLOSEC) [address] capsule Take 40 mg by mouth 1 (one) time each day 07/17/19 18 Active mirtazapine (REMERON) 15 MG tablet Take 15 mg by mouth every night 09/26/19 22 Active Melatonin 10 MG tablet Take 10 mg by mouth at bed time Active Levothyroxine Sodium (SYNTHROID PO) Take 224 mcg by mouth 1 (one) time each day 09/06/19 22 Active folic acid (FOLVITE) 800 MCG tablet Take 800 mcg by mouth 1 (one) time each day Active Cholecalciferol 125 MCG (5000 UT) tablet Take 5,000 Units by mouth 1 (one) time each day Active Calcium Carb-Cholecalci ferol (CALCIUM 600-D PO) Take 1,200 mg by mouth 1 (one) time each day Active Multiple Vitamin (multivitamin) tablet Take 1 tablet by mouth 1 (one) time each day Active Insulin Aspart (NovoLOG) 100 UNIT/ML solution Inject as directed Via pump Active losartan (COZAAR) 50 MG tabletIndicatio ns:Hypertensive chronic kidney disease, benign, with chronic kidney disease stage I through stage IV, or unspecified Take 1 tablet (50 mg total) by mouth 1 (one) time each day 30 tablet 11 07/03/19 24 Active Bhpvh-U-Wxgucty sidase (BEANO PO) Take 1 tablet by mouth 1 (one) time each day Active tamsulosin (FLOMAX) 0.4 MG 24 hr capsule Take 0.4 mg by mouth 1 (one) time each day Active metoprolol succinate XL (TOPROL XL) 50 MG 24 hr tablet TAKE 1 TABLET ONCE A DAY 90 tablet 3 08/27/19 24 Active calcitriol (ROCALTROL) 0.25 MCG capsule Take 0.25 mcg by mouth 3 times weekly: Sun and Sunday morning Active torsemide (DEMADEX) 10 MG tabletIndicatio ns:Hypertensive chronic kidney disease, benign, with chronic kidney disease stage I through stage IV, or unspecified,Hyp erkalemia Take 0.5 tablets (5 mg total) by mouth 1 (one) time each day 45 tablet 3 08/22/19 25 026 Active ferrous gluconate (FERGON) 324 (38 Fe) MG tabletIndicatio ns:Anemia in chronic kidney disease Take 1 tablet (324 mg total) by mouth 1 (one) time each day with breakfast 30 tablet 11 08/22/19 25 026 Active Ascorbic Acid (vitamin C) 250 MG tablet Take 1 tablet (250 mg total) by mouth 1 (one) time each day 30 tablet 11 08/22/19 25 026 Active Lokelma 10 g pack TAKE 1 PACKET BY MOUTH 2 TIMES A WEEK 8 each 01/10/20 25 Active Lokelma 10 g pack TAKE 1 PACKET BY MOUTH 2 TIMES A WEEK 8 each 11/15/19 25 025 Discontinued Active Problems Problem Noted Date Diagnosed Date [...] Encounters Date Type Department Care Team Description 01/07/2025 Refill [facility] [address] [facility] [address] [place] [phone] Montez Quan, COUNTER CLERK TRACTOR PARTS 11/14/2024 Refill [facility] 70 [facility] [address] [phone] Monetz Quan, COUNTER CLERK TRACTOR PARTS 11/14/2024 Orders Only [facility] [address] [facility] CIR [facility] [address] [place] [phone] Corinna Worrell CMA 11/14/2024 Refill [facility] [address] [facility] CIR [facility] [address] [place] [phone] Montez Quan, COUNTER CLERK TRACTOR PARTS from Last 3 Months Social History Tobacco [...] Sign Reading Time Taken Comments Blood Pressure 147/77 08/21/2024 1:00 PM CDT Pulse 62 08/21/2024 1:00 PM CDT Temperature 36.6 C (97.8 F) 10/08/2019 12:00 AM CDT Respiratory Rate - - Oxygen Saturation - - Inhaled Oxygen Concentration - - Weight 79.7 kg (175 lb 9.6 oz) 08/21/2024 1:00 P M CDT Height 182.9 cm (6') 04/17/2024 1:32 PM CDL DEDICATED TRUCK DRIVER Body Mass Index 23.82 04/17/2024 1:32 PM CDL DEDICATED TRUCK DRIVER Plan of Treatment Upcoming Encounters Date Type Department Care Team (Late st Contact Info) Description 01/20/2025 1:00 PM CDL DEDICATED TRUCK DRIVER Office Visit [facility] [address] [facility] [address] [place] [phone] Montez Quan, COUNTER CLERK TRACTOR PARTS [address] [facility] [address] [place] [phone] Health Maintenance Due Date Last Done Comments Pneumococcal Vaccine: 50+ Ye ars (1 of 2 - PCV) 1980 Colorectal Cancer Screening: Annual FOBT 2010 Colorectal Cancer Screening: Colonoscopy 2010 Colorectal Cancer Screening: Sigmoidoscopy 2010 Diabetes: Hemoglobin A1C 04/14/2021 04/29/2020 Diabetes: Ophthalmology Exam 04/14/2021 Diabetes: Pedal Pulse Checked 04/14/2021 Diabetes: Sensory Foot Exam 04/14/2021 Diabetes: Visual Foot Exam 04/14/2021 Influenza Vaccine (#1) 2024 Hepatitis B Vaccine Aged Out No longe r eligible based on patient's age to complete this topic Insurance [employer] Commercial Care Teams Supervisor Capacitor Processing Relationship Specialty Start Date End Date Hany Lora MD [address] [place] [address] PCP - General 03/28/21
--- OUTSIDE RECORDS SUMMARY | 2025-01-15 11:34 | XMS_ITS | Patient Health Record ---
Author Organization [facility] Address [address] [facility] [address] [place] [address] Care Team Providers Care Lumber Estimator Name Role Phone Guido GARCIA, Hany Primary Care Provider Richard PLAZA PA-C, JONI Unavailable Reason For Referral [...] Start Date Coverage End Date [place] [address] [place], [place] [id number] Evert Earl Self - patient is [...]
--- OUTSIDE RECORDS SUMMARY | 2025-01-15 11:34 | XMS_ITS | Clinical Summary ---
Author Organization [facility] Address [address] [place] [address] Care Team Providers Care Refueler Name Role Phone Unavailable Primary Care Provider Unavailabl e Source Comments [facility],non-owned Affiliates and Associated Physician Practices is amultiple site organization consisting of ambulatory clinics and hospital sitesin [place], [place], [place] and [place]. This disclosure is being madepursuant to the Care Everywhere program and may not contain all information available regarding this patient. 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
[2025-01-15 11:41] LABS: Percent Iron Saturation 33 % (20-50)
[2025-01-15 11:49] LABS: Potassium 6.5 mmol/L (3.4-5.0)
[2025-01-15 12:03] LABS: Prostate Specific Antigen 2.3 ng/mL (< OR = 4.0); Thyroid Stimulating Hormone 0.977 uIU/mL (0.465-4.680)
[2025-01-15 12:07] LABS: Ferritin 70.50 ng/mL (11.1-264)
[2025-01-16 10:55] LABS: Parathyroid Intact 108.1 (7.5-53.5)
== END 2025-01-15 10:28 | disposition home or self-care (01) ==
PROVIDERS: PCP Internal Medicine
DX: I12.9 Hypertensive chronic kidney disease with stage 1 through stage 4 chronic kidney disease, or unspecified chronic kidney disease (principal); N18.4 Chronic kidney disease, stage 4 (severe); E10.610 Type 1 diabetes mellitus with diabetic neuropathic arthropathy; E78.2 Mixed hyperlipidemia; N39.0 Urinary tract infection, site not specified; E03.4 Atrophy of thyroid (acquired); Z12.5 Encounter for screening for malignant neoplasm of prostate
CPT/HCPCS: 36415; 80053; 80061; 80069; 81003; 82043; 82306; 82728; 83036; 83540; 83550; 83970; 84153; 84443; 85025; G0103

== ENCOUNTER 2025-01-16 09:58 | Outpatient (CLI) | payer OTHER, SELFPAY ==
--- OUTSIDE RECORDS SUMMARY | 2025-01-16 10:31 | XMS_ITS | Encounter Summary ---
Author Organization [facility] Address [address] [facility] [address] [place] [address] Phone Care Team Providers Care Lawnmower Mechanic Name Role Phone Hany Lora MD Primary Care Provider [phone] Encounter Details Date Type Department Care Team (Late st Contact Info) Description 11/05/2023 Telephone [facility] [address] [facility] [address] [place] [address] Corinna Worrell CMA 70 [facility] [address] [place] [address] Social History Tobacco Use Types [...] st Contact Info) Description 01/20/2025 1:00 PM HUMAN RESOURCE INTERNSHIP Office Visit [facility] [address] [facility] [address] [place] [address] Montez Quan, RESTAURANT HOURLY TEAM MEMBER 70 [facility] [address] [place] [phone] documented as of this encounter Visit Diagnoses Not on filedocumented in this encounter Care Teams Lawnmower Mechanic Relationship Specialty Start Date End Date Hany Lora MD [address] [place] [address] PCP - General 03/28/21 documented as of this encounter
--- OUTSIDE RECORDS SUMMARY | 2025-01-16 10:31 | XMS_ITS | Clinical Summary ---
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
--- OUTSIDE RECORDS SUMMARY | 2025-01-16 10:31 | XMS_ITS | Encounter Summary ---
Author Organization [facility] Address 70 [facility] [address] [place] [address] Phone Care Team Providers Care Project Construction Manager Name Role Phone Hany Lora MD Primary Care Provider [phone] Encounter Details Date Type Department Care Team (Late Contact Info) Description 01/15/2025 Orders Only [facility] [address] [address] Dona Moncada [address] [address] Chronic kidney disease, stage 4 (severe) (HCC) (Primary Dx) Social History Tobacco Use Types Packs/Day Years [...] on file documented as of this encounter Plan of Treatment Upcoming Encounters Date Type Department Care Team (Late Contact Info) Description 01/20/2025 1:00 PM EXHIBIT TECHNICIAN Office Visit [facility] [address] [address] Montez Quan, EREN [address] [address] Scheduled Orders Name Type Priority Associated Diagnoses Orde r Schedule Renal function panel Lab Routine Chronic kidney disease, stage 4 (severe) (HCC) Expected: 01/15/2025, Expires: 02/15/2026 documented as of this encounter Visit Diagnoses Diagnosis Chronic kidney disease, stage 4 (severe) (HCC)- Primary documented in this encounter Care Teams Project Construction Manager Relationship Specialty Start Date End Date Hany Lora MD [address] [place] [address] PCP - General 03/28/21 documented as of this encounter
--- OUTSIDE RECORDS SUMMARY | 2025-01-16 10:31 | XMS_ITS | Encounter Summary ---
Author Organization [facility] Address [facility] [place] [address] Care Team Providers Care Teacher Adult Education Name Role Phone Hany Lora MD Primary Care Provider [phone] Encounter Details Date Type Department Care Team (Late st Contact Info) Description 12/30/2019 Prep for Procedure [facility] [address] [facility] [address] [place] [address] Abiodun Vann MD [address] [place] [address] Social History Tobacco Use Types Packs/Day Years Used Date Smoking Tobacco: Former Cigarettes Q uit: 12/29/2012 Smokeless Tobacco: Never Alcohol Use Standard Drinks/Week Comments Not Currently 0 (1 standard drink = 0.6 oz pur e alcohol) it has been 4-5 months Sex and Gender Information Value Date Recorded Sex Assigned at Not on file 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 Due to the current public health emergency, [facility] is receiving a high volume of samples [...] about COVID-19 can be found at the [facility] website: www.BountyHunter.MiCursada/Covid19. Test performed at [facility] [place] [address] [place] [address] Director: MERI GARDINER DO,MPH FIRST TEST YES 12/30/2019 3:18 PM CDT [facility] EMPLOYED IN HEALTHCARE NO 12/30/2019 3:18 PM CDT [facility] SYMPTOMATIC DEFINED BY CDC NO 12/30/2019 3:18 PM CDT [facility] DATE OF SYMPTOM ONSET UNKNOWN 12/30/2019 3:19 PM CDT [facility] HOSPITALIZATION STATUS NO 12/30/2019 3:18 PM CDT [facility] PATIENT IN ICU NO 12/30/2019 3:18 PM CDT [facility] RESIDENT OF [facility] NO 12/30/2019 3:18 PM CDT [facility] NOT 12/30/2019 3:19 PM CDT [facility] PATIENT'S RACE WHITE OR 12/30/2019 3:18 PM CDT [facility] ETHNICITY NONHISPANIC 12/30/2019 3:18 PM CDT [facility] SOURCE (QST) NASOPHARYNGEAL SWAB 12/30/2019 3:18 PM CDT [facility] NASOPHARYNGEAL SWAB / Unknown 12/30/2019 3:18 PM CDT us Abiodun Vann MD MICROBIOLOGY - GENERAL ORDERABLE S Final Result [facility] [address] [place] [address], [facility] [address] [place] [address], documented in this encounter Visit Diagnoses Diagnosis Preoperative testing- Primary Preoperative examination, unspecified documented in this encounter Additional Health Concerns Infection Onset Date Last Indicated Resolved Time COVID-19 Rule Out 12/30/2019 12/30/2019 12/31/2019 11:26 PM CDT documented as of this encounter Care Teams Teacher Adult Education Relationship Specialty Start Date End Date Hany Lora MD [address] [place] [address] PCP - General INTERNAL MEDICINE 09/15/19 documented as of this encounter
--- OUTSIDE RECORDS SUMMARY | 2025-01-16 10:31 | XMS_ITS | Clinical Summary ---
Author Organization [facility] Address [address] [place] [address] Care Team Providers Care Production Operations Manager Name Role Phone Unavailable Primary Care Provider Unavailabl e Source Comments [facility],non-owned Affiliates and Associated Physician Practices is amultiple site organization consisting of ambulatory clinics and hospital sitesin [place], [place], [place] and [place]. This disclosure is being madepursuant to the Care Everywhere program and may not contain all information available regarding this patient. Last updated 17.[facility] Social History Tobacco Use Types Packs/Day Years Used Date Smoking Tobacco: Never Assessed Sex and Gender Information Value Date Recorded Sex Assigned at Not on file Legal Sex Male 5:[address]ESSENGER Gender Identity Not on file Sexual Orientation [...]
--- OUTSIDE RECORDS SUMMARY | 2025-01-16 10:31 | XMS_ITS | Encounter Summary ---
Author Organization [facility] Address [address] [facility] [address] [place] [address] Phone Care Team Providers Care Clerical Dentist Assistant Name Role Phone Hany Lora MD Primary Care Provider [phone] Encounter Details Date Type Department Care Team (Late st Contact Info) Description 01/15/2025 Telephone [facility] 70 [facility] [address] [place] [address] Dona Moncada 70 [facility] [address] [place] [address] Social History Tobacco Use Types [...] encounter Miscellaneous Notes * Telephone Encounter - Montez Quan, EREN - 01/15/2025 1:02 PM CDT Oh Gosh! That is definitely too high Please verify with him that he feels OK; if he is feeling weak/heavy muscles/palpitations- suggest he go to ER immediately. Verify also that he has Lokelma? Has he been following low K diet? IF he has Lokelma available- suggest he take a packet every 8 hours over the next 24hr period (3 doses)- repeat RFP either or sunday * Telephone Encounter - Dona Moncada - 01/15/2025 11:55 AM CDT [facility] in [place]- patient has a critical K level at 6.5 documented in this encounter Plan of Treatment Upcoming Encounters Date Type Department Care Team (Late st Contact Info) Description 01/20/2025 1:00 PM MANAGER SOCIAL Office Visit [facility] [address] [facility] [address] [place] [address] Montez Quan APRN [address] [facility] [address] [place] [phone] documented as of this encounter Visit Diagnoses Not on filedocumented in this encounter Care Teams Clerical Dentist Assistant Relationship Specialty Start Date End Date Hany Lora MD [address] [place] [address] PCP - General 03/28/21 documented as of this encounter
--- OUTSIDE RECORDS SUMMARY | 2025-01-16 10:32 | XMS_ITS | Clinical Summary ---
Author Organization [facility] Address [address] [address] Phone Care Team Providers Care Softball Coach Name Role Phone Hany Lora MD Primary Care Provider [phone] Allergies Active Allergy Reactions Criticality Noted Date Comments Lisinopril Cough 10/11/2021 [place] Extract Rash,Hives Medium 10/29/2019 Medications omeprazole (PriLOSEC) [...] day 30 tablet 11 07/03/19 24 Active Fhjop-H-Pedplhq sidase (BEANO PO) Take 1 tablet by [...] Encounters Date Type Department Care Team Description 01/15/2025 Orders Only [facility] 70 [facility] [address] [facility] [place] [address] Dona Moncada Chronic kidney disease, stage 4 (severe) (HCC) (Primary Dx) 01/15/2025 Telephone [facility] [address] [address] [place] [address] Dona Moncada 01/07/2025 Refill [facility] 70 [facility] [address] [facility] [place] [address] Montez Quan, SHEET METAL CONTRACTOR 11/14/2024 Refill [facility] 70 [facility] [address] [place] [phone] Montez Quan, SHEET METAL CONTRACTOR 11/14/2024 Orders Only [facility] 70 [facility] [address] [address] LayoclarenceCorinna barrett, ERIKA 11/14/2024 Refill [facility] 70 [facility] [place] [phone] Montez Quan, SHEET METAL CONTRACTOR from Last 3 Months Social History Tobacco [...] Height 182.9 cm (6') 04/17/2024 1:32 PM PRINCIPAL TRAINER Body Mass Index 23.82 04/17/2024 1:32 PM PRINCIPAL TRAINER Plan of Treatment Upcoming Encounters Date Type Department Care Team (Late st Contact Info) Description 01/20/2025 1:00 PM PRINCIPAL TRAINER Office Visit [facility] 70 [facility] [place] [phone] Montez Quan, SHEET METAL CONTRACTOR [address] [facility] [place] [address] Health Maintenance Due Date Last Done [...] this topic Insurance [employer] Commercial Care Teams Softball Coach Relationship Specialty Start Date End Date Hany Lora MD [address] [place] [address] PCP - General 03/28/21
--- OUTSIDE RECORDS SUMMARY | 2025-01-16 10:32 | XMS_ITS | Patient Health Record ---
Author Organization [facility] Address [address] [place], [place] [id number] Care Team Providers Care Product Advisor Name Role Phone Williams Loraluna Unavailable Unavailable Reason For Referral No Information Medications Medication SIG (Take, Route, Frequency, Duration) Notes Start Date End Date Status naftifine hydrochloride 20 MG/ML Topical Cream [Naftin] CUTANEOUS naftifine hydrochloride 20 MG/ML Topical Cream [Naftin]Original Medicationnaftifine hydrochloride 20 MG/ML Topical Cream [Naftin] *Reorder from Vapotherm for eRx and Interaction Alerts* 2 Active diclofenac sodium 0.01 MG/MG Topical Gel [Voltaren] CUTANEOUS diclofenac sodium 0.01 MG/MG Topical Gel [Voltaren]Original Medicationdiclofenac sodium 0.01 MG/MG Topical Gel [Voltaren] *Reorder from Vapotherm for eRx and Interaction Alerts* 6 Active betamethasone 0.5 MG/ML / clotrimazole 10 MG/ML Topical Cream [Lotrisone] CUTANEOUS betamethasone 0.5 MG/ML / clotrimazole 10 MG/ML Topical Cream [Lotrisone]Original Medicationbetamethasone 0.5 MG/ML / clotrimazole 10 MG/ML Topical Cream [Lotrisone] *Reorder from Vapotherm for eRx and Interacti 2 Active aluminum chloride 200 MG/ML Topical Solution [Drysol] CUTANEOUS aluminum chloride 200 MG/ML Topical Solution [Drysol]Original Medicationaluminum chloride 200 MG/ML Topical Solution [Drysol] *Reorder from Vapotherm for eRx and Interaction Alerts* 2 Active [...] Insured Coverage Start Date Coverage End Date [facility] [address] [address] [place] [id number] RAFAL MATUTE Self - patient is the insured
--- OUTSIDE RECORDS SUMMARY | 2025-01-16 10:32 | XMS_ITS | Clinical Summary ---
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 Gender Identity Not on file Sexual [...] Completed 01/21/2020 Medical Devices Explanted Type Area Hydraulic Hammer Operator Device Identifier Shelf Expiration Date Model / Serial / Lot [employer] 6575 Sharpe Flexi-Stent 7fr 9cm Small Pigtail Flexible .035in Stent - [id number] Implanted:Qty: 1 on 10/29/2019 by Vijay Santos MD at [facility] Explanted:Qty: 1 on 11/17/2019 at [facility] N/A: Pancreas [employer] 07/16/2024 [id number] / / [id number] Conmed Yenni [id number] [place] Viabil 10mm 8.5fr 6cm 200cm Fully Covered Self Expand Pull - [id number] - [id number] Implanted:Qty: 1 on 10/29/2019 by Vijay Santos MD at [facility] Explanted:Qty: 1 on 11/17/2019 by Vijay Santos MD at [facility] N/A: Bile Duct [employer] Yenni 06/30/2022 [id number] / [id number] / Procedures Procedure Name Priority Date/Time Associated Diagnosis Comments EGFR Routine 05/09/2020 6:49 AM ERECTOR OPERATOR HEMOGLOBIN A1C Routine 04/29/2020 11:46 AM ERECTOR OPERATOR Preoperative testing HEPATITIS C ANTIBODY Routine 01/21/2020 7:25 AM ERECTOR OPERATOR LIPID PANEL Routine 01/21/2020 7:25 AM ERECTOR OPERATOR THYROID FUNCTION CASCADE Routine 01/21/2020 7:25 AM ERECTOR OPERATOR from Last 3 Months or Most Recently Relevant to Health Maintenance Results * eGFR (05/09/2020 6:49 AM ERECTOR OPERATOR) eGFR 41 mL/min/1.7 3 m2 [facility] Comment: Interpretive Data Reference Interval Normal >/= [...] 2020 Blood specimen (specimen) 05/09/2020 6:49 AM ERECTOR OPERATOR 05/09/2020 7:11 AM ERECTOR OPERATOR us Momo Anderson MD LAB BLOOD ORDERABLES Final Res ult Performing Organization Address [facility] Co de Phone Number [facility] [address] [place] [address] * (ABNORMAL) Hemoglobin A1c (04/29/2020 11:46 AM ERECTOR OPERATOR) Hgb A1C 6.9(H) 4.0 - 5.6 % [facility] Estimated Average Glucose 151 mg/dL [facility] Comment: The ADA recommends reporting an estimated Average Glucose (eAG) with all Hemoglobin A1c results using the equation derived from a study of 507 normal and diabetic adults. Minority populations were underrepresented and children were not included. (Diabetes Care 31:9066-7128, 2008). The eAG is not equivalent to a fasting glucose. Blood specimen (specimen) 04/29/2020 11:46 AM ERECTOR OPERATOR 04/29/2020 11:46 AM ERECTOR OPERATOR us Kristin Modi NP LAB BLOOD ORDERABLES Final Result Performing Organization Address [facility]/ZIP Co de Phone Number [facility] [address] [place] [address] * TSH reflex to free T4 (01/21/2020 7:25 AM ERECTOR OPERATOR) TSH See Comment 0.30 - 4.20 [facility] Comment:Test results inaccur ately filed to this patient's record. Test will be credited. Blood specimen (specimen) 01/21/2020 7:25 AM ERECTOR OPERATOR 01/21/2020 8:11 AM ERECTOR OPERATOR Narrative [facility] - 02/11/2020 9:28 AM ERECTOR OPERATOR Informed Sheba Lancaster 02/11/2020 09:34:25 ERECTOR OPERATOR of result corrections. [id number] us Ramu De La Torre MD LAB BLOOD ORDERABLES Edited R esult - Final Performing Organization Address [facility]/ZIP Co de Phone Number [facility] [address] [place] [address] * Hepatitis C antibody (01/21/2020 7:25 AM ERECTOR OPERATOR) Hep C Ab See Comment Nonreactive [facility] Comment: Test results inaccurately filed to this [...] 2019. Blood specimen (specimen) 01/21/2020 7:25 AM ERECTOR OPERATOR 01/21/2020 8:11 AM ERECTOR OPERATOR Tianna [facility] - 02/11/2020 9:27 AM ERECTOR OPERATOR Informed Sheba Lancaster 02/11/2020 09:34:25 ERECTOR OPERATOR of result corrections. [id number] us Ramu De La Torre MD LAB MICROBIOLOGY - GENERAL OR DERABLES Edited Result - Final Performing Organization Address City/[facility]/ZIP Co de Phone Number [facility] [address] [place] [address] * Lipid panel (01/21/2020 7:25 AM ERECTOR OPERATOR) [facility] Cholesterol See Comment 30 - 199 [facility] Comment: Test results inaccurately filed to this [...] revised on 2017. Triglycerides See Comment <=149 [facility] Comment: Test results inaccurately filed to this [...] revised on 2017. HDL See Comment >=40 [facility] Comment: Test results inaccurately filed to this [...] on 2017. LDL, calculated See Comment <=129 [facility] Comment: Test results inaccurately filed to this [...] revised on 2017. Non-HDL Cholesterol See Comment [facility] Comment: Test results inaccurately filed to this [...] revised on 2017. Chol/HDL ratio See Comment [facility] Comment:Test results inaccur ately filed to this patient's record. Test will be credited. Blood specimen (specimen) 01/21/2020 7:25 AM ERECTOR OPERATOR 01/21/2020 8:11 AM ERECTOR OPERATOR Narrative [facility] - 02/11/2020 9:28 AM ERECTOR OPERATOR Informed Sheba Lancaster 02/11/2020 09:34:25 ERECTOR OPERATOR of result corrections. [id number] us Ramu De La Torre MD LAB BLOOD ORDERABLES Edited R esult - Final [facility] [address] Department [place] [address] from Last 3 Months or Most Recently Relevant to Health Maintenance Insurance BLUE ACCESS OOS BLUE ACCESS OOS BLUE ACCESS OOS Advance Directives For more information, please contact: [phone] * Full Code (Latest Code Status on File) Date Activated Date Inactivated Comments 05/03/2020 4:34 PM 05/10/2020 5:05 PM * Full Code Date Activated Date Inactivated Comments 01/23/2020 10:41 AM 01/23/2020 4:54 PM * Full Code Date Activated Date Inactivated Comments 11/17/2019 12:39 PM 11/17/2019 7:49 PM * Full Code Date Activated Date Inactivated Comments 10/10/2019 11:37 AM 10/10/2019 6:39 PM Care Teams Customer Account Specialist Relationship Specialty Start Date End Date Hany Lora MD [address] [place] [address] PCP - General 07/10/17 Jose Bautista MD [address] [place] [address] Medical Oncologist/Hematologi Medical Oncology 05/10/20 Tree Kelley MD [address] [place] [address] Surgeon General Surgery 05/10/20 Momo Anderson MD [address] [place], [place] [phone] Consulting Physician Surgical Critical Care 06/03/20 Kenneth Herrera MD [address] [place], [place] [phone] Consulting Physician Endocrinology Diabetes & Metabolism 06/03/20
--- OUTSIDE RECORDS SUMMARY | 2025-01-16 10:32 | XMS_ITS | Patient Health Record ---
Author Organization [facility] Address [address] [facility] [address] [place] [address] Care Team Providers Care Shopping Centre Manager Name Role Phone Guido GARCIA, Hany Primary [...] Start Date Coverage End Date [employer] [address] [place], [place] [id number] Evert Earl Self - patient is [...]
[2025-01-16 10:45] LABS: Albumin Level 4.0 g/dL (3.5-5.1); Anion Gap 12 mmol/L (4-12); Blood Urea Nitrogen 44 mg/dL (9-20); Calcium 9.4 mg/dL (8.4-10.2); Carbon Dioxide 20 mmol/L (22-30); Chloride 105 mmol/L (98-107); Estimated Glomerular Filt Rate 27; Glucose 86 mg/dL (65-110); Osmolality Calculated 294 mOsm/kg (285-295); Potassium 5.4 mmol/L (3.4-5.0); Sodium 137 mmol/L (137-145)
== END 2025-01-16 09:59 | disposition home or self-care (01) ==
LOC: CHSLAB 10:02
PROVIDERS: PCP Internal Medicine
DX: N18.4 Chronic kidney disease, stage 4 (severe) (principal)
CPT/HCPCS: 36415; 80069

== ENCOUNTER 2025-01-28 09:41 | Outpatient (CLI) | payer OTHER, SELFPAY ==
--- NOTE | ~2025-01-28 | CT_ITS ---
EXAMINATION: CT lung screening DATE: 01/28/2025 09:56 INDICATION: PERSONAL HX OF NICOTINE DEPENDENCE TECHNIQUE: Computed tomography (CT) of the chest was performed without intravenous contrast. Additional 3D reconstructions utilizing coronal maximum intensity projection (MIP) were performed. Automated exposure control and iterative reconstruction technique were employed. The dose-length product was 88 .49 mGy-cm. COMPARISON: None FINDINGS: Mild emphysema. Calcified biapical pleural-parenchymal scarring. Unchanged likely benign 3 mm nodule at the junction of the left upper lobe and lingula. No pneumonia, pulmonary edema or pleural effusion. Heart size is normal. Atherosclerotic coronary artery calcification. No pericardial effusion. Thoracic aorta is normal in caliber. No pathologically enlarged thoracic lymphadenopathy. 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 Mild thoracic spondylosis. IMPRESSION: 1. Lung-RADS category 2: Benign appearance or behavior. Continue annual screening with noncontrast low-dose chest CT in 12 months. Reviewed, dictated and finalized at location A. HATCHERY WORKER IMPRESSION: 1. Lung-RADS category 2: Benign appearance or behavior. Continue annual screeni ng with noncontrast low-dose chest CT in 12 months.
--- OUTSIDE RECORDS SUMMARY | 2025-01-28 10:40 | XMS_ITS | Patient Health Record ---
Author Organization [facility] Address [address] [place], [place] [phone] Care Team Providers Care Parts Puller Name Role Phone Williams Loraluna Unavailable Unavailable Reason For Referral No Information Medications Medication SIG (Take, Route, Frequency, Duration) Notes Start Date End Date Status naftifine hydrochloride 20 MG/ML Topical Cream [Naftin] CUTANEOUS naftifine hydrochloride 20 MG/ML Topical Cream [Naftin]Original Medicationnaftifine hydrochloride 20 MG/ML Topical Cream [Naftin] *Reorder from Command Information for eRx and Interaction Alerts* 2 Active diclofenac sodium 0.01 MG/MG Topical Gel [Voltaren] CUTANEOUS diclofenac sodium 0.01 MG/MG Topical Gel [Voltaren]Original Medicationdiclofenac sodium 0.01 MG/MG Topical Gel [Voltaren] *Reorder from Command Information for eRx and Interaction Alerts* 6 Active betamethasone 0.5 MG/ML / clotrimazole 10 MG/ML Topical Cream [Lotrisone] CUTANEOUS betamethasone 0.5 MG/ML / clotrimazole 10 MG/ML Topical Cream [Lotrisone]Original Medicationbetamethasone 0.5 MG/ML / clotrimazole 10 MG/ML Topical Cream [Lotrisone] *Reorder from Command Information for eRx and Interacti 2 Active aluminum chloride 200 MG/ML Topical Solution [Drysol] CUTANEOUS aluminum chloride 200 MG/ML Topical Solution [Drysol]Original Medicationaluminum chloride 200 MG/ML Topical Solution [Drysol] *Reorder from Command Information for eRx and Interaction Alerts* 2 Active [...] Insured Coverage Start Date Coverage End Date [facility] [address] [address] [place] [id number] RAFAL MATUTE Self - patient is the insured
--- OUTSIDE RECORDS SUMMARY | 2025-01-28 10:40 | XMS_ITS | Clinical Summary ---
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
--- OUTSIDE RECORDS SUMMARY | 2025-01-28 10:40 | XMS_ITS | Clinical Summary ---
Author Organization [facility] Address [address] [place] [address] Care Team Providers Care Provider Network Analyst Name Role Phone Unavailable Primary Care Provider Unavailabl e Source Comments [facility],non-owned Affiliates and Associated Physician Practices is amultiple site organization consisting of ambulatory clinics and hospital sitesin [place], [place], [place] and [place]. This disclosure is being madepursuant to the Care Everywhere program and may not contain all information available regarding this patient. 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
--- OUTSIDE RECORDS SUMMARY | 2025-01-28 10:40 | XMS_ITS | Encounter Summary ---
Author Organization [facility] Address [facility] access hospital[address] [place] [address] Care Team Providers Care Application Internship Name Role Phone Hany Lora MD Primary Care Provider [phone] Encounter Details Date Type Department Care Team (Late st Contact Info) Description 12/30/2019 Prep for Procedure [facility] Pre-Admission Testing [address] [address] Abiodun Vann MD [address] [place] [address] Social History Tobacco Use Types Packs/Day Years Used Date Smoking Tobacco: Former Cigarettes Q uit: 12/29/2012 Smokeless Tobacco: Never Alcohol Use Standard Drinks/Week Comments Not Currently 0 (1 standard drink = 0.6 oz pur e alcohol) it has been 4-5 months Sex and Gender Information Value Date Recorded Sex Assigned at Not on file 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 Due to the current public health emergency, [facility] is receiving a high volume of samples [...] about COVID-19 can be found at the [facility] website: www.[employer]/Covid19. Test performed at [facility] [place] [address] [place] [address] Director: MERI GARDINER DO,MPH FIRST TEST YES 12/30/2019 3:18 PM CDT [facility] EMPLOYED IN HEALTHCARE NO 12/30/2019 3:18 PM CDT [facility] SYMPTOMATIC DEFINED BY CDC NO 12/30/2019 3:18 PM CDT [facility] DATE OF SYMPTOM ONSET UNKNOWN 12/30/2019 3:19 PM CDT [facility] HOSPITALIZATION STATUS NO 12/30/2019 3:18 PM CDT [facility] PATIENT IN ICU NO 12/30/2019 3:18 PM CDT [facility] RESIDENT OF [facility] NO 12/30/2019 3:18 PM CDT [facility] NOT 12/30/2019 3:19 PM CDT [facility] PATIENT'S RACE WHITE OR 12/30/2019 3:18 PM CDT [facility] ETHNICITY NONHISPANIC 12/30/2019 3:18 PM CDT [facility] SOURCE (QST) NASOPHARYNGEAL SWAB 12/30/2019 3:18 PM CDT [facility] NASOPHARYNGEAL SWAB / Unknown 12/30/2019 3:18 PM CDT us Abiodun Vann MD MICROBIOLOGY - GENERAL ORDERABLE S Final Result [facility] [address] [place] [address], [facility] [address] [place] [address], documented in this encounter Visit Diagnoses Diagnosis Preoperative testing- Primary Preoperative examination, unspecified documented in this encounter Additional Health Concerns Infection Onset Date Last Indicated Resolved Time COVID-19 Rule Out 12/30/2019 12/30/2019 12/31/2019 11:26 PM CDT documented as of this encounter Care Teams Application Internship Relationship Specialty Start Date End Date Hany Lora MD [address] [place] [address] PCP - General INTERNAL MEDICINE 09/15/19 documented as of this encounter
--- OUTSIDE RECORDS SUMMARY | 2025-01-28 10:40 | XMS_ITS | Encounter Summary ---
Author Organization [facility] Address [address] [place] [address] Phone Care Team Providers Care O And M Supervisor Name Role Phone Hany Lora MD Primary Care Provider [phone] Encounter Details Date Type Department Care Team (Late st Contact Info) Description 11/05/2023 Telephone [facility] [address] [facility] [place] [address] Corinna Worrell CMA [address] [facility] [address] [place] [address] Social History Tobacco Use Types [...] Care Team (Late st Contact Info) Description 07/28/2025 2:30 PM CDT Office Visit [facility] [address] [facility] [place] [address] Raj Morales MD [address] [facility] [address] [place] [phone] documented as of this encounter Visit Diagnoses Not on filedocumented in this encounter Care Teams O And M Supervisor Relationship Specialty Start Date End Date Hany Lora MD [address] [place] [address] PCP - General 03/28/21 documented as of this encounter
--- OUTSIDE RECORDS SUMMARY | 2025-01-28 10:41 | XMS_ITS | Clinical Summary ---
Author Organization [facility] Address [address] [address] Phone Care Team Providers Care Finance Clerk Name Role Phone Hany Lora MD Primary Care Provider [phone] Allergies Active Allergy Reactions Criticality Noted Date Comments Lisinopril Cough 10/11/2021 [place] Extract Rash,Hives Medium 10/29/2019 Medications omeprazole (PriLOSEC) [...] 1 (one) time each day Active Calcium Carb-Cholecalcife rol (CALCIUM 600-D PO) Take 1,200 mg by mouth 1 (one) time each day Active Multiple Vitamin (multivitamin) tablet Take 1 tablet by mouth 1 (one) time each day Active Insulin Aspart (NovoLOG) 100 UNIT/ML solution Inject as directed Via pump Active losartan (COZAAR) 50 MG tabletIndications :Hypertensive chronic kidney disease, benign, with chronic kidney disease stage I through stage IV, or unspecified Take 1 tablet (50 mg total) by mouth 1 (one) time each day 30 tablet 11 07/03/19 24 Active Yopdi-S-Ncrgesoii dase (BEANO PO) Take 1 tablet by mouth [...] Sunday morning Active torsemide (DEMADEX) 10 MG tabletIndications :Hypertensive chronic kidney disease, benign, with chronic kidney disease stage I through stage IV, or unspecified,Hyper kalemia Take 0.5 tablets (5 mg total) by mouth 1 (one) time each day 45 tablet 3 08/22/19 25 026 Active ferrous gluconate (FERGON) 324 (38 Fe) MG tabletIndications :Anemia in chronic kidney disease Take 1 tablet (324 mg total) by mouth 1 (one) time each day with breakfast 30 tablet 08/22/19 25 026 Active Ascorbic Acid (vitamin C) 250 MG tablet Take 1 tablet (250 mg total) by mouth 1 (one) time each day 30 tablet 08/22/19 25 026 Active Sodium Zirconium Cyclosilicate (Lokelma) 10 g pack Take 10 mg by mouth 1 (one) time each day 30 each 01/22/20 25 Active Lokelma 10 g pack TAKE 1 PACKET BY MOUTH 2 TIMES A WEEK 8 each 11/15/19 25 025 Discontinued Lokelma 10 g pack TAKE 1 PACKET BY MOUTH 2 TIMES A WEEK 8 each 01/10/20 25 025 Discontinued Sodium Zirconium Cyclosilicate (Lokelma) 10 g pack Take 10 mg by mouth 1 (one) time each day 30 each 01/21/20 25 025 Discontinued Active Problems Problem Noted [...] Encounters Date Type Department Care Team Description 01/22/2025 Telephone [facility] [address] [facility] [address] [place] [phone] Dona Moncada 01/21/2025 Orders Only [facility] [address] [facility] [address] [place] [phone] Dona Moncada 01/20/2025 1:00 PM SPACE AND MISSILE OPERATIONS SPACELIFT Office Visit [facility] [address] [facility] [place] [phone] Montez Quan, THICKENER OPERATOR Chronic kidney disease, stage 4 (severe) (HCC) (Primary Dx); 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); Hyperkalemia; Secondary hyperparathyroidism of renal origin (HCC); Anemia in chronic kidney disease; Vitamin D deficiency, not otherwise specified 01/20/2025 Documentation Only [facility] [address] [facility] [place] [phone] Gerajvaleri Anna 01/15/2025 Orders Only [facility] [address] [facility] [place] [place] [phone] Dona Moncada Chronic kidney disease, stage 4 (severe) (HCC) (Primary Dx) 01/15/2025 Telephone [facility] [address] [facility] [place] [phone] Dnoa Moncada 01/07/2025 Refill [facility] [address] [facility] [place] [phone] Montez Quan, THICKENER OPERATOR 11/14/2024 Refill [facility] [address] [facility] [place] [phone] Montez Quan, THICKENER OPERATOR 11/14/2024 Orders Only [facility] [address] [facility] [place] [phone] Corinna Worrell CMA 11/14/2024 Refill [facility] [address] [facility] [place] [phone] Montez Quan, THICKENER OPERATOR from Last 3 Months Social History Tobacco [...] Sign Reading Time Taken Comments Blood Pressure 135/70 01/20/2025 12:55 PM [employer] SPACELIFT Pulse 78 01/20/2025 12:55 PM [employer]PER[employer] SPACELIFT Temperature 36.6 C (97.8 F) 10/08/2019 12:00 AM CDT Respiratory Rate - - Oxygen Saturation - - Inhaled Oxygen Concentration - - Weight 80.3 kg (177 lb) 01/20/2025 12:55 PM [employer] SPACELIFT Height 182.9 cm (6') 01/20/2025 12:55 PM [employer]PER[employer] SPACELIFT Body Mass Index 24.01 01/20/2025 12:55 PM [employer]PER[employer] SPACELIFT Plan of Treatment Upcoming Encounters Date Type Department Care Team (Late st Contact Info) Description 07/28/2025 2:30 PM CDT Office Visit [facility] [address] [facility] [address] [place] [address] Raj Morales MD [address] [facility] [address] [place] [address] Health Maintenance Due Date Last [...] this topic Insurance [employer] Commercial Care Teams Finance Clerk Relationship Specialty Start Date End Date Hany Lora MD [address] [place] [address] PCP - General 03/28/21
--- OUTSIDE RECORDS SUMMARY | 2025-01-28 10:41 | XMS_ITS | Clinical Summary ---
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 Gender Identity Not on file Sexual Orientation [...] TSH Level 01/20/2021 01/21/2020 eGFR 05/09/2021 05/09/2020, 02/2 , 05/07/2020, Additional history exists DTaP/Tdap/Td Vaccine (2 - Td or Tdap) 07/24/2021 07/25/2011 Pneumococcal vaccine <65 (3 of 3 - PCV20 or PCV21) 01/18/2024 01/17/2019, 01/04/2015, 10/03/2013 Influenza Vaccine (#1) 2024 9, 01/17/2018, 11/22/2016, Additional history exists Hepatitis C Screening Completed 01/21/2020 Medical Devices Explanted Type Area Accounting Supervisor Device Identifier Shelf Expiration Date Model / Serial / Lot [employer] 6575 Sharpe Flexi-Stent 7fr 9cm Small Pigtail Flexible .035in Stent - [id number] Implanted:Qty: 1 on 10/29/2019 by Vijay Santos MD at [facility] Explanted:Qty: 1 on 11/17/2019 at [facility] N/A: Pancreas [employer] 07/16/2024 [id number] / / [id number] Conmed Yenni [id number] Blythe Viabil 10mm 8.5fr 6cm 200cm Fully Covered Self Expand Pull - [id number] - [id number] Implanted:Qty: 1 on 10/29/2019 by Vijay Santos MD at [facility] Explanted:Qty: 1 on 11/17/2019 by Vijay Santos MD at [facility] N/A: Bile Duct Conmed Yenni 06/30/2022 [id number] / [id number] / Procedures Procedure Name Priority Date/Time Associated Diagnosis Comments EGFR Routine 05/09/2020 6:49 AM REFRACTORY WORKER HEMOGLOBIN A1C Routine 04/29/2020 11:46 AM REFRACTORY WORKER Preoperative testing HEPATITIS C ANTIBODY Routine 01/21/2020 7:25 AM REFRACTORY WORKER LIPID PANEL Routine 01/21/2020 7:25 AM REFRACTORY WORKER THYROID FUNCTION CASCADE Routine 01/21/2020 7:25 AM REFRACTORY WORKER from Last 3 Months or Most Recently Relevant to Health Maintenance Results * eGFR (05/09/2020 6:49 AM REFRACTORY WORKER) eGFR 41 mL/min/1.7 3 m2 [facility] Comment: Interpretive Data Reference Interval Normal >/= [...] 2020 Blood specimen (specimen) 05/09/2020 6:49 AM REFRACTORY WORKER 05/09/2020 7:11 AM REFRACTORY WORKER us Momo Anderson MD LAB BLOOD ORDERABLES Final Res ult Performing Organization Address [facility] Co de Phone Number [facility] [address] [place] [address] * (ABNORMAL) Hemoglobin A1c (04/29/2020 11:46 AM REFRACTORY WORKER) Hgb A1C 6.9(H) 4.0 - 5.6 % [facility] Estimated Average Glucose 151 mg/dL [facility] Comment: The ADA recommends reporting an estimated Average Glucose (eAG) with all Hemoglobin A1c results using the equation derived from a study of 507 normal and diabetic adults. Minority populations were underrepresented and children were not included. (Diabetes Care 31:2847-3044, 2008). The eAG is not equivalent to a fasting glucose. Blood specimen (specimen) 04/29/2020 11:46 AM REFRACTORY WORKER 04/29/2020 11:46 AM REFRACTORY WORKER us Kristin Modi NP LAB BLOOD ORDERABLES Final Result Performing Organization Address [facility]/ZIP Co de Phone Number [facility] [address] [place] [address] * TSH reflex to free T4 (01/21/2020 7:25 AM REFRACTORY WORKER) TSH See Comment 0.30 - 4.20 [facility] Comment:Test results inaccur ately filed to this patient's record. Test will be credited. Blood specimen (specimen) 01/21/2020 7:25 AM REFRACTORY WORKER 01/21/2020 8:11 AM REFRACTORY WORKER Narrative [facility] - 02/11/2020 9:28 AM REFRACTORY WORKER Informed Sheba Lancaster 02/11/2020 09:34:25 REFRACTORY WORKER of result corrections. [id number] us Ramu De La Torre MD LAB BLOOD ORDERABLES Edited R esult - Final Performing Organization Address City/[facility]/ZIP Co de Phone Number [facility] [address] [place] [employer] [place] [address] * Hepatitis C antibody (01/21/2020 7:25 AM REFRACTORY WORKER) Hep C Ab See Comment Nonreactive [facility] Comment: Test results inaccurately filed to this [...] 2019. Blood specimen (specimen) 01/21/2020 7:25 AM REFRACTORY WORKER 01/21/2020 8:11 AM REFRACTORY WORKER Narrative [facility] - 02/11/2020 9:27 AM REFRACTORY WORKER Informed Sheba Lancaster 02/11/2020 09:34:25 REFRACTORY WORKER of result corrections. [id number] us Ramu De La Torre MD LAB MICROBIOLOGY - GENERAL OR DERABLES Edited Result - Final [facility] [address] Department [place] [address] * Lipid panel (01/21/2020 7:25 AM REFRACTORY WORKER) Cholesterol See Comment 30 - 199 [facility] Comment: Test results inaccurately filed to this [...] revised on 2017. Triglycerides See Comment <=149 [facility] Comment: Test results inaccurately filed to this [...] revised on 2017. HDL See Comment >=40 [facility] Comment: Test results inaccurately filed to this [...] on 2017. LDL, calculated See Comment <=129 [facility] Comment: Test results inaccurately filed to this [...] revised on 2017. Non-HDL Cholesterol See Comment [facility] Comment: Test results inaccurately filed to this [...] revised on 2017. Chol/HDL ratio See Comment [facility] Comment:Test results inaccur ately filed to this patient's record. Test will be credited. Blood specimen (specimen) 01/21/2020 7:25 AM REFRACTORY WORKER 01/21/2020 8:11 AM REFRACTORY WORKER Narrative [facility] - 02/11/2020 9:28 AM REFRACTORY WORKER Informed Sehba Lancaster 02/11/2020 09:34:25 REFRACTORY WORKER of result corrections. [id number] us Ramu De La Torre MD LAB BLOOD ORDERABLES Edited R esult - Final [facility] [address] [place] [address] from Last 3 Months or Most Recently Relevant to Health Maintenance Insurance BLUE ACCESS OOS BLUE ACCESS OOS BLUE ACCESS OOS Advance Directives For more information, please contact: [phone] * Full Code (Latest Code Status on File) Date Activated Date Inactivated Comments 05/03/2020 4:34 PM 05/10/2020 5:05 PM * Full Code Date Activated Date Inactivated Comments 01/23/2020 10:41 AM 01/23/2020 4:54 PM * Full Code Date Activated Date Inactivated Comments 11/17/2019 12:39 PM 11/17/2019 7:49 PM * Full Code Date Activated Date Inactivated Comments 10/10/2019 11:37 AM 10/10/2019 6:39 PM Care Teams Boom Stick Man Relationship Specialty Start Date End Date Hany Lora MD [address] [place] [address] PCP - General 07/10/17 Jose Bautista MD [address] [place] [address] Medical Oncologist/Hematologi Medical Oncology 05/10/20 Tree Kelley MD [address] [place] [address] Surgeon General Surgery 05/10/20 Momo Anderson MD [address] [place], [place] [phone] Consulting Physician Surgical Critical Care 06/03/20 Kenneth Herrera MD [address] [place], [place] [id number] Consulting Physician Endocrinology Diabetes & Metabolism 06/03/20
--- OUTSIDE RECORDS SUMMARY | 2025-01-28 10:41 | XMS_ITS | Patient Health Record ---
Author Organization [facility] Address [address] [facility] [address] [place] [address] Care Team Providers Care Track Supervisor Name Role Phone Guido GARCIA, Hany Primary Care Provider Richard PLAZA PA-C, JONI Unavailable [phone] Reason For Referral No Information Medications Medication [...] Start Date Coverage End Date [place] [address] [place], [place] [id number] Evert Earl Self - patient is [...]
== END 2025-01-28 09:42 | disposition home or self-care (01) ==
LOC: CHSIMG 09:44
PROVIDERS: PCP Internal Medicine; Visit Provider Internal Medicine
DX: Z12.2 Encounter for screening for malignant neoplasm of respiratory organs (principal); Z87.891 Personal history of nicotine dependence
CPT/HCPCS: 71271